=== PATIENT | male | born 1990 | race Caucasian/White ===

== ENCOUNTER 2018-06-20 18:59 | Emergency (ER) | payer MEDICAID, OTHER ==
[~2018-06-20] VITALS: Ht 177.8 cm; Wt 195.4 kg
[~2018-06-20 18:59] MED LIST: ARIP10TA8 PO; ESCI10TA PO
[2018-06-20 21:20] VITALS: BP 133/87
== END 2018-06-20 21:38 | disposition home or self-care (01) ==
LOC: EMS 18:59
DX: M54.5 Low back pain (principal); G47.62 Sleep related leg cramps; F31.9 Bipolar disorder, unspecified; F20.9 Schizophrenia, unspecified; G89.29 Other chronic pain; E66.9 Obesity, unspecified; Z68.44 Body mass index [BMI] 60.0-69.9, adult; Z59.0 Homelessness

== ENCOUNTER 2018-09-13 23:44 | Emergency (ER) | payer OTHER ==
[~2018-09-13] VITALS: Ht 175.3 cm; Wt 200.0 kg
[2018-09-14] MEDS ORDERED: AMOX TR/POT CLAV 875 MG/125 MG TABLET PO ONE (03:00)
[2018-09-14] MEDS ORDERED: LORazepam 1 MG TABLET PO ONE (03:00)
[2018-09-14 03:30] VITALS: BP 146/92
== END 2018-09-14 04:37 | disposition home or self-care (01) ==
LOC: EMS 23:46
DX: F41.9 Anxiety disorder, unspecified (principal); H66.93 Otitis media, unspecified, bilateral; F31.9 Bipolar disorder, unspecified; F20.9 Schizophrenia, unspecified

== ENCOUNTER 2018-09-16 03:32 | Emergency (ER) | payer OTHER ==
[~2018-09-16] VITALS: Ht 177.8 cm; Wt 204.6 kg
[2018-09-16 05:49] LABS: ANION GAP 7 mmol/L (8-16); CALCIUM, TOTAL 9.3 mg/dL (8.8-10.5); CARBON DIOXIDE 31 mmol/L (22-29); CHLORIDE 102 mmol/L (98-107); CREATININE 1.15 mg/dL (0.60-1.30); GLOMERULAR FILTR. RATE CALC > 60 mL/min (>60); GLUCOSE,RANDOM 100 mg/dL (70-110); POTASSIUM 4.5 mmol/L (3.5-5.1); SODIUM SERUM 140 mmol/L (136-145); UREA NITROGEN, BLOOD 14 mg/dL (7-18)
[2018-09-16 05:55] LABS: ALANINE AMINOTRANSFERASE 54 U/L (12-78); ALBUMIN 3.2 g/dL (3.4-5.0); ALKALINE PHOSPHATASE 93 U/L (46-116); ASPARTATE AMINOTRANSFERASE 34 U/L (15-37); BILIRUBIN,TOTAL 0.3 mg/dL (0.1-1.0); TOTAL PROTEIN, SERUM 7.9 g/dL (6.4-8.2)
[2018-09-16 05:56] LABS: BASOPHILS % (AUTO) 0.5 % (0.0-2.0); EOSINOPHILS % (AUTO) 0.7 % (1.0-6.0); HEMATOCRIT 51.7 % (41-53); HEMOGLOBIN 16.7 g/dL (13.5-17.5); LYMPHOCYTES # (AUTO) 2.6 K/uL (1.0-4.8); LYMPHOCYTES % (AUTO) 20.3 % (22.0-44.0); MEAN CORPUSCULAR HEMOGLOBIN 30.4 pg (26.0-34.0); MEAN CORPUSCULAR HGB CONC 32.3 G/dL (31.0-37.0); MEAN CORPUSCULAR VOLUME 94 fL (80-100); MONOCYTES # (AUTO) 1.2 K/uL (0.1-1.0); MONOCYTES % (AUTO) 9.4 % (2.0-9.0); NEUTROPHILS # (AUTO) 8.9 K/uL (1.8-7.7); NEUTROPHILS % (AUTO) 69.1 % (40.0-70.0); RED BLOOD CELL COUNT(AUTO) 5.51 MIL/uL (4.50-5.90); RED CELL DISTRIBUTION WIDTH 15.9 % (11.5-14.5)
[2018-09-16 06:10] LABS: PLATELET COUNT (AUTO) 197 K/uL (150-450)
[2018-09-16 06:11] LABS: PLATELET MORPHOLOGY COMMENT LARGE PLTS PRESENT
[2018-09-16] MEDS ORDERED: IPRATROPIUM BROMIDE 0.5 MG/2.5 ML NEB SOLUTION NEB ONE (06:15)
[2018-09-16] MEDS ORDERED: ALBUTEROL SULFATE 5 MG/ML 20 ML NEB SOLN [BULK] NEB ONE (06:15)
[2018-09-16] MEDS ORDERED: 0.9% SODIUM CHLORIDE 5 ML NEB SOLUTION NEB ONE (06:27)
[2018-09-16 06:50] LABS: AMPHET/METH SCREEN,URINE NEGATIVE (NEGATIVE); BARBITURATE SCREEN, URINE NEGATIVE (NEGATIVE); BENZODIAZEPINES SCREEN,URINE NEGATIVE (NEGATIVE); CANNABINOID SCREEN,URINE NEGATIVE (NEGATIVE); COCAINE SCREEN,URINE NEGATIVE (NEGATIVE); METHADONE SCREEN, URINE NEGATIVE (NEGATIVE); OPIATE SCREEN,URINE NEGATIVE (NEGATIVE); PHENCYCLIDINE SCREEN,URINE NEGATIVE (NEGATIVE)
[2018-09-16 06:52] VITALS: BP 142/65
== END 2018-09-16 07:08 | disposition home or self-care (01) ==
LOC: EMS 03:32
DX: F20.9 Schizophrenia, unspecified (principal); F31.9 Bipolar disorder, unspecified; F41.9 Anxiety disorder, unspecified; Z76.0 Encounter for issue of repeat prescription; Z79.899 Other long term (current) drug therapy
CPT/HCPCS: 36415; 80053; 80307; 85025; 94060; 94644; 99285; G0480

== ENCOUNTER 2019-02-02 03:20 | Emergency (ER) | payer MEDICAID, OTHER ==
[~2019-02-02] VITALS: Ht 177.8 cm; Wt 209.8 kg
[~2019-02-02 03:20] MED LIST changes: -ARIP10TA8 PO; -ESCI10TA PO; +ESCI10TA54 PO; +ZIPR40CA2 PO
[2019-02-02] MEDS ORDERED: ONDANSETRON HCL 4 MG/2 ML VIAL IVP ONE (07:00)
[2019-02-02] MEDS ORDERED: DIPHENOXYLATE/ATROP 2.5-0.025 MG TABLET PO ONE (07:00)
[2019-02-02] MEDS ORDERED: SODIUM CHLORIDE 0.9% 1,000 ML IV ONE (07:00)
[2019-02-02] MEDS ORDERED: ACETAMINOPHEN 500 MG TABLET PO ONE (07:00)
[2019-02-02 07:34] LABS: BASOPHILS % (AUTO) 0.7 % (0.0-2.0); EOSINOPHILS % (AUTO) 0.7 % (1.0-6.0); HEMOGLOBIN 17.8 g/dL (13.5-17.5); LYMPHOCYTES # (AUTO) 1.9 K/uL (1.0-4.8); MEAN CORPUSCULAR HEMOGLOBIN 30.5 pg (26.0-34.0); MEAN CORPUSCULAR VOLUME 95 fL (80-100); MONOCYTES # (AUTO) 0.9 K/uL (0.1-1.0); MONOCYTES % (AUTO) 8.3 % (2.0-9.0); NEUTROPHILS # (AUTO) 8.1 K/uL (1.8-7.7); NEUTROPHILS % (AUTO) 73.3 % (40.0-70.0); PLATELET COUNT (AUTO) 201 K/uL (150-450); RED BLOOD CELL COUNT(AUTO) 5.82 MIL/uL (4.50-5.90); RED CELL DISTRIBUTION WIDTH 15.9 % (11.5-14.5)
[2019-02-02 07:35] LABS: HEMATOCRIT 55.5 % (41-53)
[2019-02-02 07:42] LABS: ANION GAP 7 mmol/L (8-16); CALCIUM, TOTAL 9.5 mg/dL (8.8-10.5); CARBON DIOXIDE 30 mmol/L (22-29); CHLORIDE 103 mmol/L (98-107); GLOMERULAR FILTR. RATE CALC > 60 mL/min (>60); GLUCOSE,RANDOM 106 mg/dL (70-110); POTASSIUM 4.1 mmol/L (3.5-5.1); SODIUM SERUM 140 mmol/L (136-145); UREA NITROGEN, BLOOD 19 mg/dL (7-18)
[2019-02-02 07:48] LABS: ALANINE AMINOTRANSFERASE 44 U/L (12-78); ALBUMIN 2.9 g/dL (3.4-5.0); ALKALINE PHOSPHATASE 73 U/L (46-116); ASPARTATE AMINOTRANSFERASE 21 U/L (15-37); BILIRUBIN,TOTAL 0.3 mg/dL (0.1-1.0); LIPASE 130 U/L (73-393); TOTAL PROTEIN, SERUM 7.6 g/dL (6.4-8.2)
[2019-02-02 10:12] VITALS: BP 136/70
== END 2019-02-02 10:45 | disposition home or self-care (01) ==
LOC: EMS 03:22
DX: K52.9 Noninfective gastroenteritis and colitis, unspecified (principal); F25.9 Schizoaffective disorder, unspecified; F31.9 Bipolar disorder, unspecified
CPT/HCPCS: 36415; 80053; 83690; 85025; 96361; 96374; 99283; J2405; J7030

== ENCOUNTER 2019-02-07 23:24 | Emergency (ER) | payer OTHER ==
[~2019-02-07] VITALS: Ht 177.8 cm; Wt 204.6 kg
[2019-02-08] MEDS ORDERED: BACLOFEN 10 MG TABLET PO ONE (04:30)
[2019-02-08] MEDS ORDERED: ZIPRASIDONE HCL 40 MG CAPSULE PO ONE (04:30)
[2019-02-08] MEDS ORDERED: KETOROLAC TROMETHAMINE 60 MG/2 ML VIAL IM ONE (04:30)
[2019-02-08 06:03] VITALS: BP 148/90
== END 2019-02-08 06:04 | disposition home or self-care (01) ==
LOC: EMS 23:25
DX: F20.9 Schizophrenia, unspecified (principal); G89.29 Other chronic pain; M54.9 Dorsalgia, unspecified; E66.01 Morbid (severe) obesity due to excess calories; F31.9 Bipolar disorder, unspecified; Z79.899 Other long term (current) drug therapy; Z68.44 Body mass index [BMI] 60.0-69.9, adult
CPT/HCPCS: 96372; 99284; J1885

== ENCOUNTER 2019-02-21 00:31 | Emergency (ER) | payer OTHER ==
[~2019-02-21] VITALS: Ht 177.8 cm; Wt 204.6 kg
[2019-02-21 01:51] VITALS: BP 155/121
[2019-02-21 02:37] LABS: BASOPHILS % (AUTO) 0.8 % (0.0-2.0); EOSINOPHILS % (AUTO) 1.1 % (1.0-6.0); HEMATOCRIT 54.7 % (41-53); HEMOGLOBIN 17.5 g/dL (13.5-17.5); LYMPHOCYTES # (AUTO) 2.6 K/uL (1.0-4.8); LYMPHOCYTES % (AUTO) 23.8 % (22.0-44.0); MEAN CORPUSCULAR HEMOGLOBIN 30.6 pg (26.0-34.0); MEAN CORPUSCULAR VOLUME 96 fL (80-100); MONOCYTES % (AUTO) 9.3 % (2.0-9.0); PLATELET COUNT (AUTO) 218 K/uL (150-450); RED BLOOD CELL COUNT(AUTO) 5.71 MIL/uL (4.50-5.90); RED CELL DISTRIBUTION WIDTH 15.8 % (11.5-14.5)
[2019-02-21 02:45] LABS: ANION GAP 5 mmol/L (8-16); CALCIUM, TOTAL 9.6 mg/dL (8.8-10.5); CARBON DIOXIDE 33 mmol/L (22-29); CHLORIDE 104 mmol/L (98-107); CREATININE 0.98 mg/dL (0.60-1.30); GLOMERULAR FILTR. RATE CALC > 60 mL/min (>60); GLUCOSE,RANDOM 108 mg/dL (70-110); POTASSIUM 3.9 mmol/L (3.5-5.1); SODIUM SERUM 142 mmol/L (136-145); UREA NITROGEN, BLOOD 14 mg/dL (7-18)
[2019-02-21 02:51] LABS: ALANINE AMINOTRANSFERASE 55 U/L (12-78); ALBUMIN 3.1 g/dL (3.4-5.0); ALKALINE PHOSPHATASE 88 U/L (46-116); ASPARTATE AMINOTRANSFERASE 33 U/L (15-37); BILIRUBIN,TOTAL 0.2 mg/dL (0.1-1.0); TOTAL PROTEIN, SERUM 7.3 g/dL (6.4-8.2)
[2019-02-21] MEDS ORDERED: ARIPiprazole 10 MG TABLET PO ONE (03:00)
[2019-02-21] MEDS ORDERED: IBUPROFEN 600 MG TABLET PO ONE (03:00)
[2019-02-21 03:47] LABS: APPEARANCE,URINE CLEAR (CLEAR); BILIRUBIN,URINE NEGATIVE (NEGATIVE); GLUCOSE, URINE (UA) NEGATIVE (NEGATIVE); KETONES,URINE NEGATIVE (NEGATIVE); LEUKOCYTE ESTERASE ,URINE NEGATIVE (NEGATIVE); NITRATE,URINE NEGATIVE (NEGATIVE); OCCULT BLOOD,URINE NEGATIVE (NEGATIVE); PROTEIN,URINE SEE CONFIRM (NEGATIVE); UROBILINOGEN,URINE 0.2 mg/dL (<=1.0)
[2019-02-21 03:48] LABS: SULFOSALICYLIC ACID,URINE 1+ (Negative)
[2019-02-21 03:50] LABS: AMPHET/METH SCREEN,URINE NEGATIVE (NEGATIVE); BARBITURATE SCREEN, URINE NEGATIVE (NEGATIVE); BENZODIAZEPINES SCREEN,URINE NEGATIVE (NEGATIVE); CANNABINOID SCREEN,URINE NEGATIVE (NEGATIVE); COCAINE SCREEN,URINE NEGATIVE (NEGATIVE); METHADONE SCREEN, URINE NEGATIVE (NEGATIVE); OPIATE SCREEN,URINE NEGATIVE (NEGATIVE); PHENCYCLIDINE SCREEN,URINE NEGATIVE (NEGATIVE)
[2019-02-21 03:52] LABS: BACTERIA,URINE Rare /HPF (None Seen); RBC,URINE 0-2 /HPF (0-2); WBC,URINE 0-2 /HPF (0-5)
== END 2019-02-21 06:05 | disposition home or self-care (01) ==
LOC: EMS 00:31
DX: N48.1 Balanitis (principal); E66.01 Morbid (severe) obesity due to excess calories; L53.9 Erythematous condition, unspecified; R20.8 Other disturbances of skin sensation; F31.9 Bipolar disorder, unspecified; F20.9 Schizophrenia, unspecified; Z68.44 Body mass index [BMI] 60.0-69.9, adult
CPT/HCPCS: 36415; 80053; 80307; 81001; 85025; 87491; 87591; 99283; G0480

== ENCOUNTER 2019-02-22 03:39 | Inpatient (IN) | payer MEDICAID, OTHER ==
[~2019-02-22] VITALS: Ht 177.8 cm; Wt 205.0 kg
[2019-02-22 04:31] LABS: BASOPHILS % (AUTO) 0.9 % (0.0-2.0); EOSINOPHILS % (AUTO) 1.6 % (1.0-6.0); HEMATOCRIT 54.1 % (41-53); HEMOGLOBIN 17.1 g/dL (13.5-17.5); LYMPHOCYTES % (AUTO) 18.5 % (22.0-44.0); MEAN CORPUSCULAR HEMOGLOBIN 30.4 pg (26.0-34.0); MEAN CORPUSCULAR HGB CONC 31.5 G/dL (31.0-37.0); MEAN CORPUSCULAR VOLUME 97 fL (80-100); MONOCYTES # (AUTO) 0.9 K/uL (0.1-1.0); MONOCYTES % (AUTO) 8.5 % (2.0-9.0); NEUTROPHILS # (AUTO) 7.8 K/uL (1.8-7.7); NEUTROPHILS % (AUTO) 70.5 % (40.0-70.0); PLATELET COUNT (AUTO) 207 K/uL (150-450); RED BLOOD CELL COUNT(AUTO) 5.61 MIL/uL (4.50-5.90); RED CELL DISTRIBUTION WIDTH 15.6 % (11.5-14.5)
[2019-02-22 04:38] LABS: ANION GAP 4 mmol/L (8-16); CALCIUM, TOTAL 9.5 mg/dL (8.8-10.5); CARBON DIOXIDE 34 mmol/L (22-29); CHLORIDE 103 mmol/L (98-107); CREATININE 1.33 mg/dL (0.60-1.30); GLOMERULAR FILTR. RATE CALC > 60 mL/min (>60); GLUCOSE,RANDOM 101 mg/dL (70-110); POTASSIUM 4.4 mmol/L (3.5-5.1); SODIUM SERUM 141 mmol/L (136-145); UREA NITROGEN, BLOOD 15 mg/dL (7-18)
[2019-02-22 04:44] LABS: ALANINE AMINOTRANSFERASE 65 U/L (12-78); ALBUMIN 3.2 g/dL (3.4-5.0); ALKALINE PHOSPHATASE 80 U/L (46-116); ASPARTATE AMINOTRANSFERASE 37 U/L (15-37); BILIRUBIN,TOTAL 0.4 mg/dL (0.1-1.0); TOTAL PROTEIN, SERUM 7.6 g/dL (6.4-8.2)
[2019-02-22] MEDS ORDERED: CloNIDine HCL 0.1 MG TABLET PO ONE (04:45)
[2019-02-22] MEDS ORDERED: LORazepam 2 MG TABLET PO PRN (05:45)
[2019-02-22] MEDS ORDERED: ZOLPIDEM TARTRATE 10 MG TABLET PO PRN (05:45)
[2019-02-22] MEDS ORDERED: HALOPERIDOL 5 MG TABLET PO PRN (05:45)
[2019-02-22 06:38] LABS: AMPHET/METH SCREEN,URINE NEGATIVE (NEGATIVE); BARBITURATE SCREEN, URINE NEGATIVE (NEGATIVE); BENZODIAZEPINES SCREEN,URINE NEGATIVE (NEGATIVE); CANNABINOID SCREEN,URINE NEGATIVE (NEGATIVE); COCAINE SCREEN,URINE NEGATIVE (NEGATIVE); METHADONE SCREEN, URINE NEGATIVE (NEGATIVE); OPIATE SCREEN,URINE NEGATIVE (NEGATIVE)
[2019-02-22 06:41] LABS: PHENCYCLIDINE SCREEN,URINE NEGATIVE (NEGATIVE)
[2019-02-22] MEDS ORDERED: DOCUSATE SODIUM 100 MG CAPSULE PO PRN (10:45)
[2019-02-22] MEDS ORDERED: MAG HYDROX/AL HYDROX/SIMETH ES 30 ML SUSPENSION UDCUP PO PRN (10:45)
[2019-02-22] MEDS ORDERED: CloNIDine HCL 0.1 MG TABLET PO PRN (10:45)
[2019-02-22] MEDS ORDERED: ONDANSETRON HCL 4 MG TABLET PO PRN (10:45)
[2019-02-22] MEDS ORDERED: LOPERAMIDE HCL 2 MG CAPSULE PO PRN (10:45)
[2019-02-22] MEDS ORDERED: ALBUTEROL SULFATE HFA 90 MCG/PUFF 8 GM INHALER IH PRN (10:45)
[2019-02-22] MEDS ORDERED: MAGNESIUM HYDROXIDE SUSPENSION 30 ML UDCUP PO PRN (10:45)
[2019-02-22] MEDS ORDERED: BACITRACIN 28.4 GM OINTMENT TP PRN (10:45)
[2019-02-22] MEDS ORDERED: ACETAMINOPHEN 325 MG TABLET PO PRN (10:45)
[2019-02-22] MEDS ORDERED: OMEPRAZOLE 20 MG CAPSULE PO PRN (10:45)
[2019-02-22] MEDS ORDERED: PETROLATUM,WHITE 28 GM JELLY TP PRN (10:45)
[2019-02-22] MEDS ORDERED: BENZOCAINE/MENTHOL LOZENGE MM PRN (10:45)
[2019-02-22] MEDS: IBUPROFEN 600 MG TABLET PO PRN (18:33)
[2019-02-22 20:58] VITALS: BP 137/96
[2019-02-23 01:35] VITALS: BP 137/98
[2019-02-23 08:55] VITALS: BP 124/87
[2019-02-23] MEDS: IBUPROFEN 600 MG TABLET PO PRN (11:09)
[2019-02-23 17:06] VITALS: BP 148/92
[2019-02-24] MEDS: ARIPiprazole 15 MG TABLET PO SCH (10:00)
[2019-02-24] MEDS: ESCITALOPRAM OXALATE 10 MG TABLET PO SCH (10:00)
[2019-02-24 13:38] VITALS: BP 129/77
[2019-02-24 16:30] VITALS: BP 149/97
[2019-02-25 04:53] VITALS: BP 140/109
[2019-02-25] MEDS: ESCITALOPRAM OXALATE 10 MG TABLET PO SCH (09:47)
[2019-02-25] MEDS: ARIPiprazole 15 MG TABLET PO SCH (10:00)
[2019-02-25 17:54] VITALS: BP 138/98
[2019-02-26 01:38] VITALS: BP 146/102
[2019-02-26] MEDS: IBUPROFEN 600 MG TABLET PO PRN (02:01)
[2019-02-26 08:49] VITALS: BP 153/98
[2019-02-26] MEDS: ARIPiprazole 15 MG TABLET PO SCH (09:00)
[2019-02-26] MEDS: METOPROLOL TARTRATE 25 MG TABLET PO SCH ×2 (09:00→17:05)
[2019-02-26] MEDS: ESCITALOPRAM OXALATE 10 MG TABLET PO SCH (09:00)
[2019-02-26 22:49] VITALS: BP 148/95
[2019-02-27 08:47] VITALS: BP 161/88
[2019-02-27] MEDS: METOPROLOL TARTRATE 25 MG TABLET PO SCH ×2 (09:15→16:13)
[2019-02-27] MEDS: ESCITALOPRAM OXALATE 10 MG TABLET PO SCH (09:15)
[2019-02-27] MEDS: ARIPiprazole 15 MG TABLET PO SCH (09:15)
[2019-02-27 17:00] VITALS: BP 149/91
[2019-02-28 04:39] VITALS: BP 146/98
[2019-02-28] MEDS: METOPROLOL TARTRATE 25 MG TABLET PO SCH ×2 (08:57→16:17)
[2019-02-28] MEDS: ESCITALOPRAM OXALATE 10 MG TABLET PO SCH (08:57)
[2019-02-28] MEDS: RisperiDONE 2 MG TABLET PO SCH ×2 (08:57→16:17)
[2019-02-28 09:00] VITALS: BP 166/101
[2019-02-28] MEDS: IBUPROFEN 600 MG TABLET PO PRN (16:40)
[2019-02-28 16:41] VITALS: BP 122/67
[2019-03-01] MEDS: IBUPROFEN 600 MG TABLET PO PRN (04:22)
[2019-03-01] MEDS: ESCITALOPRAM OXALATE 10 MG TABLET PO SCH (09:00)
[2019-03-01] MEDS: RisperiDONE 2 MG TABLET PO SCH ×2 (09:00→16:40)
[2019-03-01] MEDS: METOPROLOL TARTRATE 25 MG TABLET PO SCH ×2 (09:00→16:40)
[2019-03-01 12:45] VITALS: BP 144/97
[2019-03-01 16:58] VITALS: BP 138/90
[2019-03-02 01:30] VITALS: BP 114/93
[2019-03-02 08:00] VITALS: BP 155/99
[2019-03-02] MEDS: ESCITALOPRAM OXALATE 10 MG TABLET PO SCH (09:00)
[2019-03-02] MEDS: METOPROLOL TARTRATE 25 MG TABLET PO SCH (09:00)
[2019-03-02] MEDS: RisperiDONE 2 MG TABLET PO SCH (10:24)
[2019-03-02] MEDS ORDERED: METO25 PO (13:53)
[2019-03-02] MEDS ORDERED: ESCI10TA PO (13:53)
[2019-03-02] MEDS ORDERED: RISP2 PO (13:53)
== END 2019-03-02 16:15 | disposition home or self-care (01) | DRG 750 ==
LOC: EMS 03:41 → B3A 06:30 → 3EI 21:29
PROVIDERS: ADMIT Psychiatry & Neurology Psychiatry; ATTEND Psychiatry & Neurology Psychiatry
DX: F25.0 Schizoaffective disorder, bipolar type (principal); R45.851 Suicidal ideations; E66.01 Morbid (severe) obesity due to excess calories; F43.10 Post-traumatic stress disorder, unspecified; G47.00 Insomnia, unspecified; G47.33 Obstructive sleep apnea (adult) (pediatric); K59.00 Constipation, unspecified; F41.9 Anxiety disorder, unspecified; M54.9 Dorsalgia, unspecified; Z68.44 Body mass index [BMI] 60.0-69.9, adult; Z91.14 Patient's other noncompliance with medication regimen; Z56.0 Unemployment, unspecified; Z79.899 Other long term (current) drug therapy
CPT/HCPCS: G0480

== ENCOUNTER 2019-03-07 04:03 | Inpatient (IN) | payer MEDICAID, OTHER ==
[~2019-03-07] VITALS: Ht 175.3 cm; Wt 206.5 kg
[~2019-03-07 04:03] MED LIST changes: +ESCI10TA PO; -ESCI10TA54 PO; +METO25 PO; +RISP2 PO; -ZIPR40CA2 PO
[2019-03-07 05:07] LABS: BASOPHILS % (AUTO) 0.7 % (0.0-2.0); EOSINOPHILS % (AUTO) 0.4 % (1.0-6.0); HEMATOCRIT 50.8 % (41-53); HEMOGLOBIN 16.1 g/dL (13.5-17.5); LYMPHOCYTES # (AUTO) 1.7 K/uL (1.0-4.8); LYMPHOCYTES % (AUTO) 13.8 % (22.0-44.0); MEAN CORPUSCULAR HEMOGLOBIN 30.4 pg (26.0-34.0); MEAN CORPUSCULAR HGB CONC 31.6 G/dL (31.0-37.0); MEAN CORPUSCULAR VOLUME 96 fL (80-100); MONOCYTES # (AUTO) 1.1 K/uL (0.1-1.0); MONOCYTES % (AUTO) 9.2 % (2.0-9.0); NEUTROPHILS # (AUTO) 9.3 K/uL (1.8-7.7); NEUTROPHILS % (AUTO) 75.9 % (40.0-70.0); PLATELET COUNT (AUTO) 210 K/uL (150-450); RED BLOOD CELL COUNT(AUTO) 5.29 MIL/uL (4.50-5.90); RED CELL DISTRIBUTION WIDTH 15.8 % (11.5-14.5)
[2019-03-07 05:13] LABS: ANION GAP 3 mmol/L (8-16); CALCIUM, TOTAL 9.2 mg/dL (8.8-10.5); CARBON DIOXIDE 34 mmol/L (22-29); CHLORIDE 102 mmol/L (98-107); CREATININE 1.05 mg/dL (0.60-1.30); GLOMERULAR FILTR. RATE CALC > 60 mL/min (>60); GLUCOSE,RANDOM 86 mg/dL (70-110); POTASSIUM 3.9 mmol/L (3.5-5.1); SODIUM SERUM 139 mmol/L (136-145); UREA NITROGEN, BLOOD 13 mg/dL (7-18)
[2019-03-07 05:17] LABS: AMPHET/METH SCREEN,URINE NEGATIVE (NEGATIVE); BARBITURATE SCREEN, URINE NEGATIVE (NEGATIVE); BENZODIAZEPINES SCREEN,URINE NEGATIVE (NEGATIVE); CANNABINOID SCREEN,URINE NEGATIVE (NEGATIVE); COCAINE SCREEN,URINE NEGATIVE (NEGATIVE); METHADONE SCREEN, URINE NEGATIVE (NEGATIVE); OPIATE SCREEN,URINE NEGATIVE (NEGATIVE)
[2019-03-07 05:18] LABS: PHENCYCLIDINE SCREEN,URINE NEGATIVE (NEGATIVE)
[2019-03-07 05:18] LABS: ALANINE AMINOTRANSFERASE 43 U/L (12-78); ALBUMIN 3.1 g/dL (3.4-5.0); ALKALINE PHOSPHATASE 66 U/L (46-116); ASPARTATE AMINOTRANSFERASE 28 U/L (15-37); BILIRUBIN,TOTAL 0.3 mg/dL (0.1-1.0); TOTAL PROTEIN, SERUM 7.6 g/dL (6.4-8.2)
[2019-03-07] MEDS ORDERED: ACETAMINOPHEN 325 MG TABLET PO PRN (09:15)
[2019-03-07] MEDS ORDERED: ONDANSETRON HCL 4 MG/2 ML VIAL IVP PRN (09:15)
[2019-03-07] MEDS ORDERED: RisperiDONE 1 MG TABLET PO ONE (09:45)
[2019-03-07] MEDS ORDERED: LORazepam 2 MG TABLET PO PRN (10:00)
[2019-03-07 13:16] VITALS: BP 124/79
[2019-03-07] MEDS: RisperiDONE 2 MG TABLET PO SCH (16:23)
[2019-03-07 17:00] VITALS: BP 130/87
[2019-03-08 04:02] VITALS: BP 144/89
[2019-03-08] MEDS: ARIPiprazole 15 MG TABLET PO SCH (08:27)
[2019-03-08 09:49] VITALS: BP 135/76
[2019-03-08] MEDS ORDERED: CloNIDine HCL 0.1 MG TABLET PO PRN (10:15)
[2019-03-08] MEDS: RisperiDONE 2 MG TABLET PO SCH ×2 (11:45→16:30)
[2019-03-08] MEDS: METOPROLOL TARTRATE 25 MG TABLET PO SCH (16:30)
[2019-03-08 16:31] VITALS: BP 160/69
[2019-03-08] MEDS ORDERED: BENZOCAINE/MENTHOL LOZENGE MM PRN (22:15)
[2019-03-08] MEDS ORDERED: OMEPRAZOLE 20 MG CAPSULE PO PRN (22:15)
[2019-03-08] MEDS ORDERED: MAG HYDROX/AL HYDROX/SIMETH ES 30 ML SUSPENSION UDCUP PO PRN (22:15)
[2019-03-08] MEDS ORDERED: LOPERAMIDE HCL 2 MG CAPSULE PO PRN (22:15)
[2019-03-08] MEDS ORDERED: PETROLATUM,WHITE 28 GM JELLY TP PRN (22:15)
[2019-03-08] MEDS ORDERED: ACETAMINOPHEN 325 MG TABLET PO PRN (22:15)
[2019-03-08] MEDS ORDERED: DOCUSATE SODIUM 100 MG CAPSULE PO PRN (22:15)
[2019-03-08] MEDS ORDERED: MAGNESIUM HYDROXIDE SUSPENSION 30 ML UDCUP PO PRN (22:15)
[2019-03-08] MEDS ORDERED: BACITRACIN 28.4 GM OINTMENT TP PRN (22:15)
[2019-03-08] MEDS ORDERED: ALBUTEROL SULFATE HFA 90 MCG/PUFF 8 GM INHALER IH PRN (22:15)
[2019-03-08] MEDS ORDERED: ONDANSETRON HCL 4 MG TABLET PO PRN (22:15)
[2019-03-08] MEDS: HALOPERIDOL 5 MG TABLET PO PRN (23:51)
[2019-03-09] VITALS: BP 140/84
[2019-03-09 08:00] VITALS: BP 125/89
[2019-03-09] MEDS: ARIPiprazole 15 MG TABLET PO SCH (10:26)
[2019-03-09] MEDS: RisperiDONE 2 MG TABLET PO SCH ×2 (10:26→18:42)
[2019-03-09] MEDS: METOPROLOL TARTRATE 25 MG TABLET PO SCH ×2 (10:26→18:42)
[2019-03-09 19:12] VITALS: BP 138/76
[2019-03-09] MEDS: IBUPROFEN 600 MG TABLET PO PRN (20:33)
[2019-03-09 20:35] VITALS: BP 132/69
[2019-03-09] MEDS: HALOPERIDOL 5 MG TABLET PO PRN (22:52)
[2019-03-10] MEDS: RisperiDONE 2 MG TABLET PO SCH ×2 (08:35→17:36)
[2019-03-10] MEDS: ARIPiprazole 15 MG TABLET PO SCH (08:35)
[2019-03-10] MEDS: METOPROLOL TARTRATE 25 MG TABLET PO SCH ×2 (08:54→17:36)
[2019-03-10 11:16] VITALS: BP 132/98
[2019-03-10 16:00] VITALS: BP 104/75
[2019-03-11 04:10] VITALS: BP 139/85
[2019-03-11 08:30] VITALS: BP 120/67
[2019-03-11] MEDS: ARIPiprazole 15 MG TABLET PO SCH (09:02)
[2019-03-11] MEDS: RisperiDONE 2 MG TABLET PO SCH ×2 (09:03→16:44)
[2019-03-11] MEDS: METOPROLOL TARTRATE 25 MG TABLET PO SCH ×2 (09:04→16:44)
[2019-03-11 21:20] VITALS: BP 151/91
[2019-03-12 00:15] VITALS: BP 162/97
[2019-03-12] MEDS: ZOLPIDEM TARTRATE 10 MG TABLET PO PRN (00:16)
[2019-03-12] MEDS: ARIPiprazole 15 MG TABLET PO SCH (08:57)
[2019-03-12] MEDS: RisperiDONE 2 MG TABLET PO SCH ×2 (08:57→16:19)
[2019-03-12] MEDS: METOPROLOL TARTRATE 50 MG TABLET PO SCH ×2 (08:58→16:19)
[2019-03-12 10:16] VITALS: BP 139/97
[2019-03-12 16:20] VITALS: BP 137/92
[2019-03-13 03:27] VITALS: BP 151/88
[2019-03-13] MEDS: RisperiDONE 2 MG TABLET PO SCH ×2 (09:10→17:35)
[2019-03-13] MEDS: METOPROLOL TARTRATE 50 MG TABLET PO SCH ×2 (09:10→17:35)
[2019-03-13] MEDS: ARIPiprazole 15 MG TABLET PO SCH (09:10)
[2019-03-13 10:22] VITALS: BP 128/78
[2019-03-13 16:30] VITALS: BP 141/78
[2019-03-14] MEDS: IBUPROFEN 600 MG TABLET PO PRN (01:26)
[2019-03-14 01:31] VITALS: BP 119/80
[2019-03-14] MEDS: RisperiDONE 2 MG TABLET PO SCH ×2 (08:41→17:06)
[2019-03-14] MEDS: METOPROLOL TARTRATE 50 MG TABLET PO SCH ×2 (08:41→17:06)
[2019-03-14] MEDS: ARIPiprazole 15 MG TABLET PO SCH (08:41)
[2019-03-14 10:30] VITALS: BP 135/61
[2019-03-14 16:11] VITALS: BP 127/91
[2019-03-14 16:16] VITALS: BP 127/91
[2019-03-14] MEDS: ZOLPIDEM TARTRATE 10 MG TABLET PO PRN (21:41)
[2019-03-15] MEDS: RisperiDONE 2 MG TABLET PO SCH ×2 (08:29→17:17)
[2019-03-15] MEDS: ARIPiprazole 15 MG TABLET PO SCH (08:29)
[2019-03-15] MEDS: METOPROLOL TARTRATE 50 MG TABLET PO SCH ×2 (08:29→17:17)
[2019-03-15 09:32] VITALS: BP_SYST 127; BP_SYST 158; BP_DIAS 74; BP_DIAS 85
[2019-03-15 16:30] VITALS: BP 147/90
[2019-03-16 00:50] VITALS: BP 134/82
[2019-03-16] MEDS: ZOLPIDEM TARTRATE 10 MG TABLET PO PRN (00:54)
[2019-03-16] MEDS: ARIPiprazole 15 MG TABLET PO SCH (08:09)
[2019-03-16] MEDS: RisperiDONE 2 MG TABLET PO SCH (08:09)
[2019-03-16] MEDS: METOPROLOL TARTRATE 50 MG TABLET PO SCH (08:16)
[2019-03-16] MEDS ORDERED: METO50 PO (10:21)
[2019-03-16] MEDS ORDERED: ARIP15TA2 PO (10:25)
== END 2019-03-16 13:34 | disposition home or self-care (01) | DRG 750 ==
LOC: EMS 04:23 → 3EI 11:41
PROVIDERS: ADMIT Psychiatry & Neurology Psychiatry; ATTEND Psychiatry & Neurology Psychiatry
DX: F20.0 Paranoid schizophrenia (principal); E66.01 Morbid (severe) obesity due to excess calories; F31.9 Bipolar disorder, unspecified; F43.10 Post-traumatic stress disorder, unspecified; G47.00 Insomnia, unspecified; G47.33 Obstructive sleep apnea (adult) (pediatric); G89.29 Other chronic pain; I10 Essential (primary) hypertension; K21.9 Gastro-esophageal reflux disease without esophagitis; K59.00 Constipation, unspecified; R45.850 Homicidal ideations; Z59.0 Homelessness; M54.9 Dorsalgia, unspecified; Z68.44 Body mass index [BMI] 60.0-69.9, adult
CPT/HCPCS: G0480

== ENCOUNTER 2019-05-09 02:09 | Emergency (ER) | payer MEDICAID, OTHER ==
[~2019-05-09] VITALS: Ht 177.8 cm; Wt 204.6 kg
[~2019-05-09 02:09] MED LIST changes: +ARIP15TA2 PO; -ESCI10TA PO; -METO25 PO; +METO50 PO
[2019-05-09] MEDS ORDERED: QUET50TA PO (02:24)
[2019-05-09 03:32] LABS: BASOPHILS % (AUTO) 0.7 % (0.0-2.0); EOSINOPHILS % (AUTO) 1.8 % (1.0-6.0); HEMATOCRIT 50.2 % (41-53); LYMPHOCYTES # (AUTO) 1.5 K/uL (1.0-4.8); LYMPHOCYTES % (AUTO) 16.8 % (22.0-44.0); MEAN CORPUSCULAR HEMOGLOBIN 30.9 pg (26.0-34.0); MEAN CORPUSCULAR VOLUME 97 fL (80-100); MONOCYTES # (AUTO) 0.8 K/uL (0.1-1.0); MONOCYTES % (AUTO) 9.7 % (2.0-9.0); NEUTROPHILS # (AUTO) 6.2 K/uL (1.8-7.7); PLATELET COUNT (AUTO) 187 K/uL (150-450); RED BLOOD CELL COUNT(AUTO) 5.19 MIL/uL (4.50-5.90)
[2019-05-09 03:40] LABS: ANION GAP -3 mmol/L (8-16); CALCIUM, TOTAL 8.7 mg/dL (8.8-10.5); CARBON DIOXIDE 39 mmol/L (22-29); CHLORIDE 105 mmol/L (98-107); CREATININE 1.28 mg/dL (0.60-1.30); GLOMERULAR FILTR. RATE CALC > 60 mL/min (>60); GLUCOSE,RANDOM 97 mg/dL (70-110); POTASSIUM 4.5 mmol/L (3.5-5.1); SODIUM SERUM 141 mmol/L (136-145); UREA NITROGEN, BLOOD 12 mg/dL (7-18)
[2019-05-09 03:46] LABS: ALANINE AMINOTRANSFERASE 33 U/L (12-78); ALBUMIN 2.8 g/dL (3.4-5.0); ALKALINE PHOSPHATASE 78 U/L (46-116); ASPARTATE AMINOTRANSFERASE 21 U/L (15-37); BILIRUBIN,TOTAL 0.3 mg/dL (0.1-1.0); LIPASE 155 U/L (73-393)
[2019-05-09] MEDS ORDERED: MAGNESIUM CITRATE 300 ML ORAL SOLUTION PO ONE (04:15)
[2019-05-09] MEDS ORDERED: SENNA/DOCUSATE SODIUM 8.6-50 MG TABLET PO ONE (04:15)
[2019-05-09 04:58] VITALS: BP 112/61
== END 2019-05-09 05:16 | disposition home or self-care (01) ==
LOC: EMS 02:10
DX: K59.00 Constipation, unspecified (principal); E66.01 Morbid (severe) obesity due to excess calories; F31.9 Bipolar disorder, unspecified; F20.9 Schizophrenia, unspecified; Z79.899 Other long term (current) drug therapy; Z68.44 Body mass index [BMI] 60.0-69.9, adult
CPT/HCPCS: 74022

== ENCOUNTER 2019-05-11 17:13 | Inpatient (IN) | payer OTHER ==
[~2019-05-11] VITALS: Ht 177.8 cm; Wt 201.2 kg
[~2019-05-11 17:13] MED LIST changes: +QUET50TA PO
[2019-05-11 18:25] LABS: BASOPHILS % (AUTO) 0.6 % (0.0-2.0); EOSINOPHILS % (AUTO) 0.7 % (1.0-6.0); HEMATOCRIT 49.8 % (41-53); HEMOGLOBIN 15.8 g/dL (13.5-17.5); LYMPHOCYTES # (AUTO) 1.5 K/uL (1.0-4.8); LYMPHOCYTES % (AUTO) 17.2 % (22.0-44.0); MEAN CORPUSCULAR HEMOGLOBIN 30.7 pg (26.0-34.0); MEAN CORPUSCULAR HGB CONC 31.6 G/dL (31.0-37.0); MEAN CORPUSCULAR VOLUME 97 fL (80-100); MONOCYTES # (AUTO) 0.9 K/uL (0.1-1.0); MONOCYTES % (AUTO) 10.4 % (2.0-9.0); NEUTROPHILS # (AUTO) 6.4 K/uL (1.8-7.7); NEUTROPHILS % (AUTO) 71.1 % (40.0-70.0); PLATELET COUNT (AUTO) 199 K/uL (150-450); RED BLOOD CELL COUNT(AUTO) 5.14 MIL/uL (4.50-5.90); RED CELL DISTRIBUTION WIDTH 16.1 % (11.5-14.5)
[2019-05-11 18:44] LABS: ANION GAP 1 mmol/L (8-16); CALCIUM, TOTAL 8.6 mg/dL (8.8-10.5); CARBON DIOXIDE 36 mmol/L (22-29); CHLORIDE 103 mmol/L (98-107); CREATININE 1.36 mg/dL (0.60-1.30); GLOMERULAR FILTR. RATE CALC > 60 mL/min (>60); GLUCOSE,RANDOM 94 mg/dL (70-110); POTASSIUM 5.2 mmol/L (3.5-5.1); SODIUM SERUM 140 mmol/L (136-145); UREA NITROGEN, BLOOD 15 mg/dL (7-18)
[2019-05-11 18:54] LABS: D-DIMER 0.87 mg/L FEU (0.00-0.50)
[2019-05-11 18:55] LABS: SALICYLATE < 2.8 mg/dL (2.8-20.0)
[2019-05-11 19:03] LABS: ALANINE AMINOTRANSFERASE 47 U/L (12-78); ALBUMIN 2.7 g/dL (3.4-5.0); ALKALINE PHOSPHATASE 60 U/L (46-116); ASPARTATE AMINOTRANSFERASE 32 U/L (15-37); BILIRUBIN,TOTAL 0.3 mg/dL (0.1-1.0); TOTAL PROTEIN, SERUM 7.2 g/dL (6.4-8.2)
[2019-05-11 19:04] LABS: ACETAMINOPHEN < 2 mcg/mL (10-30)
[2019-05-11 19:10] LABS: PROTHROMBIN TIME 10.1 SEC (9.4-11.6)
[2019-05-11] MEDS ORDERED: FUROSEMIDE 40 MG/4 ML VIAL IVP ONE (19:45)
[2019-05-11] MEDS ORDERED: ASPIRIN 81 MG CHEWABLE TABLET PO ONE (19:45)
[2019-05-11] MEDS ORDERED: NITROGLYCERIN 2% (1 GM=INCH) PACKET TP ONE (19:45)
[2019-05-11 20:49] LABS: AMPHET/METH SCREEN,URINE NEGATIVE (NEGATIVE); BARBITURATE SCREEN, URINE NEGATIVE (NEGATIVE); BENZODIAZEPINES SCREEN,URINE NEGATIVE (NEGATIVE); CANNABINOID SCREEN,URINE NEGATIVE (NEGATIVE); COCAINE SCREEN,URINE NEGATIVE (NEGATIVE); METHADONE SCREEN, URINE NEGATIVE (NEGATIVE); OPIATE SCREEN,URINE NEGATIVE (NEGATIVE)
[2019-05-11 20:52] LABS: PHENCYCLIDINE SCREEN,URINE NEGATIVE (NEGATIVE)
[2019-05-11 21:24] LABS: ABG A-A DIFF O2 45.8 mmHg (10-20.0); ABG BASE EXCESS 4.5 mmol/L (-2.0-3.0); ABG CARBOXYHEMOGLOBIN 1.5 % (0.0-3.0); ABG HCO3 26.5 mmol/L (22.0-26.0); ABG OXYGEN CONTENT 23.3 mL/dL (15.0-23.0); ABG OXYGEN SATURATION 99.1 % (95.0-98.0); ABG OXYHEMOGLOBIN 97.6 % (94.0-100.0); ABG PCO2 64 mmHg (35-45); ABG PH 7.301 (7.350-7.450); ABG TOTAL HEMOGLOBIN 16.8 G/dL (12.0-18.0); PO2, ARTERIAL BG 165.8 mmHg (80.0-100.0); SOURCE, BLOOD GAS ARTERIAL; TEMPERATURE, FAHRENHEIT, BG 98.6 FAHREN (96.0-98.6)
[2019-05-11 21:25] LABS: O2 DEVICE,BLOOD GAS BIPAP (ROOM AIR); SITE, BLOOD GAS RT RADIAL
[2019-05-11 21:26] LABS: SPONTANEOUS VT, BG 523 ml
[2019-05-11] MEDS: ACETAMINOPHEN 325 MG TABLET PO PRN (22:32)
[2019-05-11] MEDS: RisperiDONE 2 MG TABLET PO SCH (23:22)
[2019-05-11] MEDS: QUEtiapine FUMARATE 25 MG TABLET PO SCH (23:22)
[2019-05-11 23:29] VITALS: BP 111/66
[2019-05-12] MEDS: HEPARIN SODIUM,PORCINE 5,000 UNITS/ML VIAL SQ SCH ×4 (00:27→15:54)
[2019-05-12 05:19] VITALS: BP 149/58
[2019-05-12 06:45] VITALS: BP 143/94
[2019-05-12 07:22] LABS: BASOPHILS % (AUTO) 0.5 % (0.0-2.0); EOSINOPHILS % (AUTO) 0.3 % (1.0-6.0); HEMATOCRIT 49.4 % (41-53); HEMOGLOBIN 15.5 g/dL (13.5-17.5); LYMPHOCYTES # (AUTO) 1.2 K/uL (1.0-4.8); LYMPHOCYTES % (AUTO) 11.7 % (22.0-44.0); MEAN CORPUSCULAR HEMOGLOBIN 30.9 pg (26.0-34.0); MEAN CORPUSCULAR HGB CONC 31.4 G/dL (31.0-37.0); MEAN CORPUSCULAR VOLUME 98 fL (80-100); MONOCYTES % (AUTO) 10.1 % (2.0-9.0); NEUTROPHILS # (AUTO) 7.9 K/uL (1.8-7.7); NEUTROPHILS % (AUTO) 77.4 % (40.0-70.0); PLATELET COUNT (AUTO) 212 K/uL (150-450); RED BLOOD CELL COUNT(AUTO) 5.02 MIL/uL (4.50-5.90); RED CELL DISTRIBUTION WIDTH 16.2 % (11.5-14.5)
[2019-05-12 07:42] LABS: ALANINE AMINOTRANSFERASE 45 U/L (12-78); ALKALINE PHOSPHATASE 64 U/L (46-116); ANION GAP 1 mmol/L (8-16); ASPARTATE AMINOTRANSFERASE 21 U/L (15-37); BILIRUBIN,TOTAL 0.4 mg/dL (0.1-1.0); CALCIUM, TOTAL 8.5 mg/dL (8.8-10.5); CARBON DIOXIDE 39 mmol/L (22-29); CHLORIDE 99 mmol/L (98-107); CREATININE 1.09 mg/dL (0.60-1.30); GLOMERULAR FILTR. RATE CALC > 60 mL/min (>60); GLUCOSE,RANDOM 124 mg/dL (70-110); POTASSIUM 5.6 mmol/L (3.5-5.1); SODIUM SERUM 139 mmol/L (136-145); TOTAL PROTEIN, SERUM 7.1 g/dL (6.4-8.2); UREA NITROGEN, BLOOD 12 mg/dL (7-18)
[2019-05-12 08:11] VITALS: BP 150/70
[2019-05-12] MEDS ORDERED: SODIUM POLYSTYRENE SULFONATE 15 GM/60 ML SUSPENSION BOTTLE PO ONE (09:00)
[2019-05-12] MEDS: DOCUSATE SODIUM 100 MG CAPSULE PO SCH ×3 (09:27→21:35)
[2019-05-12] MEDS: FAMOTIDINE 20 MG TABLET PO SCH (09:27)
[2019-05-12] MEDS: QUEtiapine FUMARATE 25 MG TABLET PO SCH ×3 (09:27→21:35)
[2019-05-12] MEDS: ASPIRIN 81 MG CHEWABLE TABLET PO SCH (09:27)
[2019-05-12] MEDS: RisperiDONE 2 MG TABLET PO SCH ×3 (09:27→21:35)
[2019-05-12 11:52] VITALS: BP 144/86
[2019-05-12 16:11] VITALS: BP 125/49
[2019-05-12 19:02] LABS: ABG A-A DIFF O2 92.9 mmHg (10-20.0); ABG CARBOXYHEMOGLOBIN 1.8 % (0.0-3.0); ABG HCO3 31.4 mmol/L (22.0-26.0); ABG OXYGEN CONTENT 21.6 mL/dL (15.0-23.0); ABG OXYGEN SATURATION 96.2 % (95.0-98.0); ABG OXYHEMOGLOBIN 94.5 % (94.0-100.0); ABG TOTAL HEMOGLOBIN 16.2 G/dL (12.0-18.0); PO2, ARTERIAL BG 95.5 mmHg (80.0-100.0); SOURCE, BLOOD GAS ARTERIAL; TEMPERATURE, FAHRENHEIT, BG 99.6 FAHREN (96.0-98.6)
[2019-05-12 19:04] LABS: ABG PCO2 116 mmHg (35-45); ABG PH 7.174 (7.350-7.450); O2 DEVICE,BLOOD GAS BIPAP (ROOM AIR); SITE, BLOOD GAS RT BRACHIAL
[2019-05-12 20:00] VITALS: BP 158/95
[2019-05-12 20:32] LABS: ABG A-A DIFF O2 68.2 mmHg (10-20.0); ABG BASE EXCESS 11.9 mmol/L (-2.0-3.0); ABG CARBOXYHEMOGLOBIN 1.9 % (0.0-3.0); ABG HCO3 31.5 mmol/L (22.0-26.0); ABG METHEMOGLOBIN 0.3 % (0.0-1.5); ABG OXYGEN CONTENT 21.2 mL/dL (15.0-23.0); ABG OXYGEN SATURATION 95.7 % (95.0-98.0); ABG OXYHEMOGLOBIN 93.6 % (94.0-100.0); ABG TOTAL HEMOGLOBIN 16.1 G/dL (12.0-18.0); PO2, ARTERIAL BG 80.8 mmHg (80.0-100.0); SOURCE, BLOOD GAS ARTERIAL; TEMPERATURE, FAHRENHEIT, BG 98.6 FAHREN (96.0-98.6)
[2019-05-12 20:33] LABS: ABG PCO2 87 mmHg (35-45); O2 DEVICE,BLOOD GAS BIPAP (ROOM AIR); SITE, BLOOD GAS RT BRACHIAL; SPONTANEOUS VT, BG 457 ml
[2019-05-12] MEDS ORDERED: SUGAMMADEX SODIUM 200 MG/2 ML VIAL IVP ONE (20:53)
[2019-05-12 21:19] LABS: ANION GAP 1 mmol/L (8-16); CALCIUM, TOTAL 8.6 mg/dL (8.8-10.5); CARBON DIOXIDE 37 mmol/L (22-29); CHLORIDE 100 mmol/L (98-107); CREATININE 1.03 mg/dL (0.60-1.30); GLOMERULAR FILTR. RATE CALC > 60 mL/min (>60); GLUCOSE,RANDOM 103 mg/dL (70-110); SODIUM SERUM 138 mmol/L (136-145)
[2019-05-12 21:32] LABS: UREA NITROGEN, BLOOD 13 mg/dL (7-18)
[2019-05-12 22:28] LABS: ABG METHEMOGLOBIN 0.3 % (0.0-1.5); SOURCE, BLOOD GAS ARTERIAL; TEMPERATURE, FAHRENHEIT, BG 99.8 FAHREN (96.0-98.6)
[2019-05-12 22:37] LABS: ABG A-A DIFF O2 74.3 mmHg (10-20.0); ABG BASE EXCESS 12.9 mmol/L (-2.0-3.0); ABG CARBOXYHEMOGLOBIN 1.9 % (0.0-3.0); ABG HCO3 32.1 mmol/L (22.0-26.0); ABG OXYGEN CONTENT 19.9 mL/dL (15.0-23.0); ABG OXYGEN SATURATION 91.3 % (95.0-98.0); ABG OXYHEMOGLOBIN 89.3 % (94.0-100.0); ABG TOTAL HEMOGLOBIN 15.9 G/dL (12.0-18.0); PO2, ARTERIAL BG 65.9 mmHg (80.0-100.0)
[2019-05-12 22:38] LABS: ABG PCO2 94 mmHg (35-45); ABG PH 7.252 (7.350-7.450); SITE, BLOOD GAS RT BRACHIAL
[2019-05-12 22:39] LABS: O2 DEVICE,BLOOD GAS BIPAP (ROOM AIR); SPONTANEOUS VT, BG 608 ml
[2019-05-12] MEDS ORDERED: RAPID SEQUENCE KIT [RSI] 1 EACH KIT ONE (22:42)
[2019-05-12] MEDS ORDERED: PROPOFOL 1000 MG/ISO-OSM 100 ML IV ONE (23:07)
[2019-05-12] MEDS: PROPOFOL 1000 MG/ISO-OSM 100 ML IV PRN (23:15)
[2019-05-13] VITALS (8 sets, daily range): BP systolic 109–142; BP diastolic 60–91
[2019-05-13 00:18] LABS: ABG A-A DIFF O2 267.9 mmHg (10-20.0); ABG BASE EXCESS 10.7 mmol/L (-2.0-3.0); ABG CARBOXYHEMOGLOBIN 2.4 % (0.0-3.0); ABG HCO3 31.7 mmol/L (22.0-26.0); ABG METHEMOGLOBIN 0.3 % (0.0-1.5); ABG OXYGEN CONTENT 20.9 mL/dL (15.0-23.0); ABG OXYGEN SATURATION 96.5 % (95.0-98.0); ABG OXYHEMOGLOBIN 93.9 % (94.0-100.0); ABG PCO2 66 mmHg (35-45); ABG PH 7.355 (7.350-7.450); ABG TOTAL HEMOGLOBIN 15.8 G/dL (12.0-18.0); O2 DEVICE,BLOOD GAS VENTILATOR (ROOM AIR); PEEP,BG 5 cm H2O; PO2, ARTERIAL BG 85.9 mmHg (80.0-100.0); SITE, BLOOD GAS RT BRACHIAL; SOURCE, BLOOD GAS ARTERIAL; TEMPERATURE, FAHRENHEIT, BG 99.7 FAHREN (96.0-98.6); VT, ABG 600 ml
[2019-05-13 00:19] LABS: SPONTANEOUS VT, BG 614 ml
[2019-05-13] MEDS: PROPOFOL 1000 MG/ISO-OSM 100 ML IV PRN ×8 (00:31→21:47)
[2019-05-13] MEDS: HEPARIN SODIUM,PORCINE 5,000 UNITS/ML VIAL SQ SCH ×4 (00:33→23:59)
[2019-05-13] MEDS: FAMOTIDINE 20 MG TABLET PO SCH (08:18)
[2019-05-13] MEDS: ASPIRIN 81 MG CHEWABLE TABLET PO SCH (08:18)
[2019-05-13] MEDS: QUEtiapine FUMARATE 25 MG TABLET PO SCH ×2 (09:00→21:45)
[2019-05-13] MEDS: DOCUSATE SODIUM 100 MG CAPSULE PO SCH ×2 (09:00→21:46)
[2019-05-13] MEDS: RisperiDONE 2 MG TABLET PO SCH ×2 (09:00→21:45)
[2019-05-14] VITALS (7 sets, daily range): BP systolic 116–143; BP diastolic 71–92
[2019-05-14] MEDS: PROPOFOL 1000 MG/ISO-OSM 100 ML IV PRN ×15 (01:04→22:11)
[2019-05-14 04:56] LABS: BASOPHILS % (AUTO) 0.8 % (0.0-2.0); EOSINOPHILS % (AUTO) 1.3 % (1.0-6.0); HEMATOCRIT 52.1 % (41-53); HEMOGLOBIN 16.6 g/dL (13.5-17.5); LYMPHOCYTES # (AUTO) 1.5 K/uL (1.0-4.8); LYMPHOCYTES % (AUTO) 14.3 % (22.0-44.0); MEAN CORPUSCULAR HEMOGLOBIN 30.5 pg (26.0-34.0); MEAN CORPUSCULAR HGB CONC 31.9 G/dL (31.0-37.0); MEAN CORPUSCULAR VOLUME 96 fL (80-100); MONOCYTES # (AUTO) 1.1 K/uL (0.1-1.0); NEUTROPHILS # (AUTO) 7.4 K/uL (1.8-7.7); NEUTROPHILS % (AUTO) 72.6 % (40.0-70.0); PLATELET COUNT (AUTO) 179 K/uL (150-450); RED BLOOD CELL COUNT(AUTO) 5.45 MIL/uL (4.50-5.90); RED CELL DISTRIBUTION WIDTH 16.3 % (11.5-14.5)
[2019-05-14 05:07] LABS: ALANINE AMINOTRANSFERASE 27 U/L (12-78); ALBUMIN 2.5 g/dL (3.4-5.0); ALKALINE PHOSPHATASE 52 U/L (46-116); ANION GAP 3 mmol/L (8-16); ASPARTATE AMINOTRANSFERASE 30 U/L (15-37); BILIRUBIN,TOTAL 1.1 mg/dL (0.1-1.0); CALCIUM, TOTAL 8.8 mg/dL (8.8-10.5); CARBON DIOXIDE 36 mmol/L (22-29); CHLORIDE 101 mmol/L (98-107); CREATININE 1.07 mg/dL (0.60-1.30); GLOMERULAR FILTR. RATE CALC > 60 mL/min (>60); GLUCOSE,RANDOM 95 mg/dL (70-110); PHOSPHORUS 3.2 mg/dL (2.5-4.9); SODIUM SERUM 140 mmol/L (136-145); UREA NITROGEN, BLOOD 12 mg/dL (7-18)
[2019-05-14 05:20] LABS: B-TYPE NATRIURETIC PEPTIDE 11 pg/mL (0-100)
[2019-05-14] MEDS: HEPARIN SODIUM,PORCINE 5,000 UNITS/ML VIAL SQ SCH (07:50)
[2019-05-14] MEDS: ASPIRIN 81 MG CHEWABLE TABLET PO SCH (07:52)
[2019-05-14] MEDS: DOCUSATE SODIUM 100 MG CAPSULE PO SCH ×2 (07:52→21:12)
[2019-05-14] MEDS: FAMOTIDINE 20 MG TABLET PO SCH (07:52)
[2019-05-14 08:27] LABS: ABG A-A DIFF O2 240.5 mmHg (10-20.0); ABG BASE EXCESS 11.9 mmol/L (-2.0-3.0); ABG CARBOXYHEMOGLOBIN 1.3 % (0.0-3.0); ABG HCO3 33.6 mmol/L (22.0-26.0); ABG METHEMOGLOBIN 0.3 % (0.0-1.5); ABG OXYGEN CONTENT 21.8 mL/dL (15.0-23.0); ABG OXYGEN SATURATION 91.8 % (95.0-98.0); ABG OXYHEMOGLOBIN 90.3 % (94.0-100.0); ABG PCO2 49 mmHg (35-45); ABG TOTAL HEMOGLOBIN 17.2 G/dL (12.0-18.0); PO2, ARTERIAL BG 61.3 mmHg (80.0-100.0); SOURCE, BLOOD GAS ARTERIAL; TEMPERATURE, FAHRENHEIT, BG 98.6 FAHREN (96.0-98.6)
[2019-05-14 08:29] LABS: SITE, BLOOD GAS RT RADIAL
[2019-05-14 08:30] LABS: O2 DEVICE,BLOOD GAS VENTILATOR (ROOM AIR); PEEP,BG 5 cm H2O; VT, ABG 600 ml
[2019-05-14] MEDS: QUEtiapine FUMARATE 25 MG TABLET PO SCH ×2 (09:11→21:12)
[2019-05-14] MEDS: RisperiDONE 2 MG TABLET PO SCH ×2 (09:11→21:12)
[2019-05-14] MEDS: APIXABAN 5 MG TABLET PO SCH ×2 (13:14→21:12)
[2019-05-14] MEDS: FUROSEMIDE 40 MG/4 ML VIAL IVP SCH (14:37)
[2019-05-14] MEDS: ACETAMINOPHEN 325 MG TABLET PO PRN ×2 (17:02→21:12)
[2019-05-14 21:46] LABS: APPEARANCE,URINE CLEAR (CLEAR); GLUCOSE, URINE (UA) NEGATIVE (NEGATIVE); KETONES,URINE NEGATIVE (NEGATIVE); LEUKOCYTE ESTERASE ,URINE NEGATIVE (NEGATIVE); NITRATE,URINE NEGATIVE (NEGATIVE); OCCULT BLOOD,URINE NEGATIVE (NEGATIVE); PH,URINE 7.5 (5.0-8.0); PROTEIN,URINE POS 1+ (NEGATIVE)
[2019-05-14 21:55] LABS: BILIRUBIN,URINE PRELIM. POSITIVE (NEGATIVE)
[2019-05-14 22:10] LABS: WBC,URINE 0-2 /HPF (0-5)
[2019-05-14 22:11] LABS: BACTERIA,URINE Few /HPF (None Seen)
[2019-05-14 22:12] LABS: SQUAMOUS EPITHELIAL CELL,UR None Seen /LPF (None Seen)
[2019-05-15] VITALS (8 sets, daily range): BP systolic 119–131; BP diastolic 69–90
[2019-05-15] MEDS: PROPOFOL 1000 MG/ISO-OSM 100 ML IV PRN ×16 (00:02→23:11)
[2019-05-15 04:54] LABS: BASOPHILS % (AUTO) 0.9 % (0.0-2.0); EOSINOPHILS % (AUTO) 1.6 % (1.0-6.0); HEMATOCRIT 49.9 % (41-53); HEMOGLOBIN 16.4 g/dL (13.5-17.5); LYMPHOCYTES % (AUTO) 15.3 % (22.0-44.0); MEAN CORPUSCULAR HEMOGLOBIN 31.2 pg (26.0-34.0); MEAN CORPUSCULAR HGB CONC 32.9 G/dL (31.0-37.0); MEAN CORPUSCULAR VOLUME 95 fL (80-100); MONOCYTES # (AUTO) 2.1 K/uL (0.1-1.0); MONOCYTES % (AUTO) 16.5 % (2.0-9.0); NEUTROPHILS # (AUTO) 8.5 K/uL (1.8-7.7); NEUTROPHILS % (AUTO) 65.7 % (40.0-70.0); PLATELET COUNT (AUTO) 167 K/uL (150-450); RED BLOOD CELL COUNT(AUTO) 5.26 MIL/uL (4.50-5.90); RED CELL DISTRIBUTION WIDTH 16.5 % (11.5-14.5)
[2019-05-15 05:41] LABS: ANION GAP 7 mmol/L (8-16); CALCIUM, TOTAL 8.8 mg/dL (8.8-10.5); CARBON DIOXIDE 34 mmol/L (22-29); CHLORIDE 100 mmol/L (98-107); CREATININE 1.29 mg/dL (0.60-1.30); GLOMERULAR FILTR. RATE CALC > 60 mL/min (>60); GLUCOSE,RANDOM 89 mg/dL (70-110); SODIUM SERUM 141 mmol/L (136-145); UREA NITROGEN, BLOOD 12 mg/dL (7-18)
[2019-05-15 09:01] LABS: ABG A-A DIFF O2 300.4 mmHg (10-20.0); ABG CARBOXYHEMOGLOBIN 1.2 % (0.0-3.0); ABG HCO3 32.2 mmol/L (22.0-26.0); ABG METHEMOGLOBIN 0.3 % (0.0-1.5); ABG OXYGEN CONTENT 22.1 mL/dL (15.0-23.0); ABG OXYGEN SATURATION 94.1 % (95.0-98.0); ABG OXYHEMOGLOBIN 92.7 % (94.0-100.0); ABG PCO2 48 mmHg (35-45); ABG PH 7.468 (7.350-7.450); PO2, ARTERIAL BG 74.4 mmHg (80.0-100.0); SOURCE, BLOOD GAS ARTERIAL; TEMPERATURE, FAHRENHEIT, BG 99.5 FAHREN (96.0-98.6)
[2019-05-15 09:02] LABS: O2 DEVICE,BLOOD GAS VENTILATOR (ROOM AIR); PEEP,BG 5 cm H2O; SITE, BLOOD GAS LFT BRACHIAL; VT, ABG 600 ml
[2019-05-15] MEDS: FUROSEMIDE 40 MG/4 ML VIAL IVP SCH (09:33)
[2019-05-15] MEDS: RisperiDONE 2 MG TABLET PO SCH ×2 (09:34→20:21)
[2019-05-15] MEDS: FAMOTIDINE 20 MG TABLET PO SCH (09:34)
[2019-05-15] MEDS: DOCUSATE SODIUM 100 MG CAPSULE PO SCH ×2 (09:34→20:21)
[2019-05-15] MEDS: APIXABAN 5 MG TABLET PO SCH ×2 (09:34→20:21)
[2019-05-15] MEDS: QUEtiapine FUMARATE 25 MG TABLET PO SCH ×2 (09:34→20:21)
[2019-05-15] MEDS: PIPERACILLIN/TAZO 3.375 GM/D5W 50 ML IV SCH ×3 (11:02→22:26)
[2019-05-15] MEDS: ACETAMINOPHEN 325 MG TABLET PO PRN (21:46)
[2019-05-16] VITALS: BP 135/78
[2019-05-16] MEDS: PROPOFOL 1000 MG/ISO-OSM 100 ML IV PRN ×12 (00:44→23:39)
[2019-05-16 04:00] VITALS: BP_SYST 134; BP_SYST 135; BP_DIAS 78
[2019-05-16] MEDS: PIPERACILLIN/TAZO 3.375 GM/D5W 50 ML IV SCH ×4 (04:07→22:04)
[2019-05-16 04:54] LABS: BASOPHILS % (AUTO) 0.4 % (0.0-2.0); EOSINOPHILS % (AUTO) 2.8 % (1.0-6.0); HEMATOCRIT 49.7 % (41-53); HEMOGLOBIN 16.1 g/dL (13.5-17.5); LYMPHOCYTES # (AUTO) 1.4 K/uL (1.0-4.8); LYMPHOCYTES % (AUTO) 11.4 % (22.0-44.0); MEAN CORPUSCULAR HEMOGLOBIN 30.8 pg (26.0-34.0); MEAN CORPUSCULAR HGB CONC 32.5 G/dL (31.0-37.0); MEAN CORPUSCULAR VOLUME 95 fL (80-100); MONOCYTES # (AUTO) 1.2 K/uL (0.1-1.0); MONOCYTES % (AUTO) 10.1 % (2.0-9.0); NEUTROPHILS # (AUTO) 9.2 K/uL (1.8-7.7); NEUTROPHILS % (AUTO) 75.3 % (40.0-70.0); PLATELET COUNT (AUTO) 175 K/uL (150-450); RED BLOOD CELL COUNT(AUTO) 5.23 MIL/uL (4.50-5.90)
[2019-05-16 05:15] LABS: ANION GAP 7 mmol/L (8-16); CALCIUM, TOTAL 8.6 mg/dL (8.8-10.5); CARBON DIOXIDE 34 mmol/L (22-29); CHLORIDE 97 mmol/L (98-107); CREATININE 1.32 mg/dL (0.60-1.30); GLOMERULAR FILTR. RATE CALC > 60 mL/min (>60); GLUCOSE,RANDOM 97 mg/dL (70-110); POTASSIUM 3.8 mmol/L (3.5-5.1); SODIUM SERUM 138 mmol/L (136-145); UREA NITROGEN, BLOOD 13 mg/dL (7-18)
[2019-05-16 08:00] VITALS: BP 128/89
[2019-05-16 08:01] LABS: ABG BASE EXCESS 10.2 mmol/L (-2.0-3.0); ABG CARBOXYHEMOGLOBIN 1.4 % (0.0-3.0); ABG HCO3 31.4 mmol/L (22.0-26.0); ABG METHEMOGLOBIN 0.3 % (0.0-1.5); ABG OXYGEN CONTENT 20.2 mL/dL (15.0-23.0); ABG OXYGEN SATURATION 88.8 % (95.0-98.0); ABG OXYHEMOGLOBIN 87.3 % (94.0-100.0); ABG PCO2 57 mmHg (35-45); ABG PH 7.402 (7.350-7.450); ABG TOTAL HEMOGLOBIN 16.5 G/dL (12.0-18.0); PO2, ARTERIAL BG 59.9 mmHg (80.0-100.0); SOURCE, BLOOD GAS ARTERIAL; TEMPERATURE, FAHRENHEIT, BG 98.6 FAHREN (96.0-98.6)
[2019-05-16 08:04] LABS: O2 DEVICE,BLOOD GAS VENTILATOR (ROOM AIR); PEEP,BG 5 cm H2O; SITE, BLOOD GAS RT BRACHIAL; VT, ABG 600 ml
[2019-05-16] MEDS: MULTIVITAMINS WITH MINERALS, THERAPEUTIC 15 ML UDCUP NG SCH (08:32)
[2019-05-16] MEDS: QUEtiapine FUMARATE 25 MG TABLET PO SCH ×2 (08:33→21:03)
[2019-05-16] MEDS: APIXABAN 5 MG TABLET PO SCH ×2 (08:33→21:04)
[2019-05-16] MEDS: FUROSEMIDE 40 MG/4 ML VIAL IVP SCH ×2 (08:33→21:03)
[2019-05-16] MEDS: DOCUSATE SODIUM 100 MG CAPSULE PO SCH ×2 (08:33→21:04)
[2019-05-16] MEDS: FAMOTIDINE 20 MG TABLET PO SCH (08:33)
[2019-05-16] MEDS: RisperiDONE 2 MG TABLET PO SCH ×2 (08:33→21:02)
[2019-05-16 12:00] VITALS: BP 125/71
[2019-05-16 16:00] VITALS: BP 140/84
[2019-05-16] MEDS: ACETAMINOPHEN 325 MG TABLET PO PRN (18:05)
[2019-05-16 20:00] VITALS: BP 117/68
[2019-05-16] MEDS ORDERED: SODIUM CHLORIDE 0.9% 250 ML IV ONE (22:39)
[2019-05-16] MEDS ORDERED: SODIUM CHLORIDE 0.9% 500 ML IV ONE (22:39)
[2019-05-17] VITALS: BP 129/66
[2019-05-17] MEDS: PROPOFOL 1000 MG/ISO-OSM 100 ML IV PRN ×14 (01:57→23:35)
[2019-05-17] MEDS: PIPERACILLIN/TAZO 3.375 GM/D5W 50 ML IV SCH ×4 (03:55→22:23)
[2019-05-17 04:00] VITALS: BP 112/67
[2019-05-17 04:56] LABS: BASOPHILS % (AUTO) 0.7 % (0.0-2.0); EOSINOPHILS % (AUTO) 3.3 % (1.0-6.0); HEMATOCRIT 47.5 % (41-53); HEMOGLOBIN 15.7 g/dL (13.5-17.5); LYMPHOCYTES # (AUTO) 1.5 K/uL (1.0-4.8); LYMPHOCYTES % (AUTO) 12.7 % (22.0-44.0); MEAN CORPUSCULAR HEMOGLOBIN 31.1 pg (26.0-34.0); MEAN CORPUSCULAR VOLUME 94 fL (80-100); MONOCYTES # (AUTO) 0.9 K/uL (0.1-1.0); MONOCYTES % (AUTO) 8.1 % (2.0-9.0); NEUTROPHILS # (AUTO) 8.8 K/uL (1.8-7.7); NEUTROPHILS % (AUTO) 75.2 % (40.0-70.0); PLATELET COUNT (AUTO) 182 K/uL (150-450); RED BLOOD CELL COUNT(AUTO) 5.04 MIL/uL (4.50-5.90); RED CELL DISTRIBUTION WIDTH 15.8 % (11.5-14.5)
[2019-05-17 05:08] LABS: ANION GAP 3 mmol/L (8-16); CALCIUM, TOTAL 8.8 mg/dL (8.8-10.5); CARBON DIOXIDE 36 mmol/L (22-29); CHLORIDE 97 mmol/L (98-107); CREATININE 1.19 mg/dL (0.60-1.30); GLOMERULAR FILTR. RATE CALC > 60 mL/min (>60); GLUCOSE,RANDOM 117 mg/dL (70-110); POTASSIUM 3.5 mmol/L (3.5-5.1); SODIUM SERUM 136 mmol/L (136-145); UREA NITROGEN, BLOOD 15 mg/dL (7-18)
[2019-05-17 08:00] VITALS: BP 123/76
[2019-05-17] MEDS: FUROSEMIDE 40 MG/4 ML VIAL IVP SCH ×2 (09:00→20:37)
[2019-05-17] MEDS: MULTIVITAMINS WITH MINERALS, THERAPEUTIC 15 ML UDCUP NG SCH (09:00)
[2019-05-17] MEDS: MAGNESIUM HYDROXIDE SUSPENSION 30 ML UDCUP PO PRN (09:00)
[2019-05-17] MEDS: FAMOTIDINE 20 MG TABLET PO SCH (09:01)
[2019-05-17] MEDS: APIXABAN 5 MG TABLET PO SCH (09:01)
[2019-05-17] MEDS: DOCUSATE SODIUM 100 MG CAPSULE PO SCH ×2 (09:01→20:37)
[2019-05-17] MEDS: QUEtiapine FUMARATE 25 MG TABLET PO SCH ×2 (09:02→20:37)
[2019-05-17] MEDS: RisperiDONE 2 MG TABLET PO SCH ×2 (09:02→20:37)
[2019-05-17 12:00] VITALS: BP 135/96
[2019-05-17] MEDS: HALOPERIDOL LACTATE 5 MG/ML VIAL IVP PRN (14:59)
[2019-05-17] MEDS: ACETAMINOPHEN 325 MG TABLET PO PRN ×2 (15:03→20:37)
[2019-05-17 16:00] VITALS: BP 142/87
[2019-05-17 18:10] LABS: ABG A-A DIFF O2 215.9 mmHg (10-20.0); ABG BASE EXCESS 10.7 mmol/L (-2.0-3.0); ABG CARBOXYHEMOGLOBIN 1.2 % (0.0-3.0); ABG HCO3 32.6 mmol/L (22.0-26.0); ABG METHEMOGLOBIN 0.3 % (0.0-1.5); ABG OXYGEN CONTENT 21.1 mL/dL (15.0-23.0); ABG OXYGEN SATURATION 94.6 % (95.0-98.0); ABG OXYHEMOGLOBIN 93.2 % (94.0-100.0); ABG PCO2 53 mmHg (35-45); ABG PH 7.438 (7.350-7.450); ABG TOTAL HEMOGLOBIN 16.1 G/dL (12.0-18.0); SOURCE, BLOOD GAS ARTERIAL; TEMPERATURE, FAHRENHEIT, BG 100.2 FAHREN (96.0-98.6)
[2019-05-17 18:12] LABS: O2 DEVICE,BLOOD GAS VENTILATOR (ROOM AIR); PEEP,BG 5 cm H2O; SITE, BLOOD GAS LFT RADIAL; VT, ABG 600 ml
[2019-05-17 20:00] VITALS: BP 117/57
[2019-05-17 20:30] LABS: INR 1.1 (0.9-1.1); PROTHROMBIN TIME 10.8 SEC (9.4-11.6)
[2019-05-17] MEDS: HEPARIN SODIUM 25000 UNITS/D5W 250 ML IV PRN (22:23)
[2019-05-18] VITALS (7 sets, daily range): BP systolic 110–133; BP diastolic 61–78
[2019-05-18] MEDS: PROPOFOL 1000 MG/ISO-OSM 100 ML IV PRN ×13 (01:04→22:39)
[2019-05-18] MEDS: PIPERACILLIN/TAZO 3.375 GM/D5W 50 ML IV SCH ×4 (03:57→21:56)
[2019-05-18 05:28] LABS: BASOPHILS % (AUTO) 0.5 % (0.0-2.0); EOSINOPHILS % (AUTO) 4.5 % (1.0-6.0); HEMATOCRIT 46.6 % (41-53); HEMOGLOBIN 15.5 g/dL (13.5-17.5); LYMPHOCYTES # (AUTO) 1.8 K/uL (1.0-4.8); LYMPHOCYTES % (AUTO) 17.8 % (22.0-44.0); MEAN CORPUSCULAR HEMOGLOBIN 31.3 pg (26.0-34.0); MEAN CORPUSCULAR HGB CONC 33.2 G/dL (31.0-37.0); MEAN CORPUSCULAR VOLUME 94 fL (80-100); MONOCYTES # (AUTO) 1.1 K/uL (0.1-1.0); MONOCYTES % (AUTO) 10.5 % (2.0-9.0); NEUTROPHILS # (AUTO) 6.7 K/uL (1.8-7.7); NEUTROPHILS % (AUTO) 66.7 % (40.0-70.0); PLATELET COUNT (AUTO) 190 K/uL (150-450); RED BLOOD CELL COUNT(AUTO) 4.94 MIL/uL (4.50-5.90); RED CELL DISTRIBUTION WIDTH 15.6 % (11.5-14.5)
[2019-05-18 05:36] LABS: ANION GAP 9 mmol/L (8-16); CALCIUM, TOTAL 8.9 mg/dL (8.8-10.5); CARBON DIOXIDE 34 mmol/L (22-29); CHLORIDE 96 mmol/L (98-107); CREATININE 1.18 mg/dL (0.60-1.30); GLOMERULAR FILTR. RATE CALC > 60 mL/min (>60); GLUCOSE,RANDOM 107 mg/dL (70-110); POTASSIUM 3.3 mmol/L (3.5-5.1); SODIUM SERUM 139 mmol/L (136-145); UREA NITROGEN, BLOOD 18 mg/dL (7-18)
[2019-05-18] MEDS: HEPARIN SODIUM,PORCINE 5,000 UNITS/ML VIAL IVP PRN ×3 (05:46→22:32)
[2019-05-18] MEDS: QUEtiapine FUMARATE 25 MG TABLET PO SCH ×2 (08:45→20:28)
[2019-05-18] MEDS: FUROSEMIDE 40 MG/4 ML VIAL IVP SCH ×2 (08:46→20:28)
[2019-05-18] MEDS: MULTIVITAMINS WITH MINERALS, THERAPEUTIC 15 ML UDCUP NG SCH (08:46)
[2019-05-18] MEDS: DOCUSATE SODIUM 100 MG CAPSULE PO SCH ×2 (08:46→20:28)
[2019-05-18] MEDS: FAMOTIDINE 20 MG TABLET PO SCH (08:46)
[2019-05-18] MEDS: MAGNESIUM HYDROXIDE SUSPENSION 30 ML UDCUP PO PRN (08:46)
[2019-05-18] MEDS: RisperiDONE 2 MG TABLET PO SCH ×2 (08:46→20:28)
[2019-05-18] MEDS: HEPARIN SODIUM 25000 UNITS/D5W 250 ML IV PRN ×3 (13:22→22:29)
[2019-05-18] MEDS ORDERED: POTASSIUM CHLORIDE 20 MEQ ER TABLET PO PRN (19:30)
[2019-05-18] MEDS ORDERED: MAGNESIUM SULFATE 2 GM/WATER 50 ML IV PRN (19:30)
[2019-05-18] MEDS ORDERED: MAGNESIUM OXIDE 400 MG TABLET PO PRN (19:30)
[2019-05-18] MEDS ORDERED: MAGNESIUM SULFATE 4 GM/WATER 100 ML IV PRN (19:30)
[2019-05-18] MEDS: POTASSIUM CHL 10 MEQ/WATER 50 ML IV PRN ×3 (19:46→20:41)
[2019-05-18] MEDS: HALOPERIDOL LACTATE 5 MG/ML VIAL IVP PRN (20:01)
[2019-05-18 22:10] LABS: ALBUMIN 2.3 g/dL (3.4-5.0); POTASSIUM 3.7 mmol/L (3.5-5.1)
[2019-05-19] VITALS: BP 129/76
[2019-05-19] MEDS: PROPOFOL 1000 MG/ISO-OSM 100 ML IV PRN ×9 (01:09→21:12)
[2019-05-19] MEDS: HALOPERIDOL LACTATE 5 MG/ML VIAL IVP PRN ×3 (01:59→22:54)
[2019-05-19] MEDS: PIPERACILLIN/TAZO 3.375 GM/D5W 50 ML IV SCH ×4 (03:07→21:21)
[2019-05-19 04:00] VITALS: BP 110/59
[2019-05-19] MEDS: HEPARIN SODIUM 25000 UNITS/D5W 250 ML IV PRN ×4 (04:34→21:14)
[2019-05-19 05:26] LABS: BASOPHILS % (AUTO) 0.9 % (0.0-2.0); EOSINOPHILS % (AUTO) 3.5 % (1.0-6.0); HEMATOCRIT 43.5 % (41-53); HEMOGLOBIN 14.5 g/dL (13.5-17.5); LYMPHOCYTES # (AUTO) 1.5 K/uL (1.0-4.8); LYMPHOCYTES % (AUTO) 17.2 % (22.0-44.0); MEAN CORPUSCULAR HEMOGLOBIN 31.3 pg (26.0-34.0); MEAN CORPUSCULAR HGB CONC 33.3 G/dL (31.0-37.0); MEAN CORPUSCULAR VOLUME 94 fL (80-100); MONOCYTES # (AUTO) 0.9 K/uL (0.1-1.0); MONOCYTES % (AUTO) 10.4 % (2.0-9.0); NEUTROPHILS # (AUTO) 6.1 K/uL (1.8-7.7); PLATELET COUNT (AUTO) 207 K/uL (150-450); RED BLOOD CELL COUNT(AUTO) 4.64 MIL/uL (4.50-5.90); RED CELL DISTRIBUTION WIDTH 15.6 % (11.5-14.5)
[2019-05-19 05:49] LABS: ALANINE AMINOTRANSFERASE 47 U/L (12-78); ALBUMIN 2.2 g/dL (3.4-5.0); ALKALINE PHOSPHATASE 45 U/L (46-116); ANION GAP 4 mmol/L (8-16); ASPARTATE AMINOTRANSFERASE 37 U/L (15-37); BILIRUBIN,TOTAL 0.9 mg/dL (0.1-1.0); CALCIUM, TOTAL 8.9 mg/dL (8.8-10.5); CARBON DIOXIDE 36 mmol/L (22-29); CHLORIDE 97 mmol/L (98-107); GLOMERULAR FILTR. RATE CALC > 60 mL/min (>60); GLUCOSE,RANDOM 105 mg/dL (70-110); POTASSIUM 3.3 mmol/L (3.5-5.1); SODIUM SERUM 137 mmol/L (136-145); TOTAL PROTEIN, SERUM 7.5 g/dL (6.4-8.2); UREA NITROGEN, BLOOD 17 mg/dL (7-18)
[2019-05-19] MEDS: POTASSIUM CHL 10 MEQ/WATER 50 ML IV PRN ×6 (07:40→15:35)
[2019-05-19 08:00] VITALS: BP 156/92
[2019-05-19] MEDS: FUROSEMIDE 40 MG/4 ML VIAL IVP SCH ×2 (08:41→20:13)
[2019-05-19] MEDS: DOCUSATE SODIUM 100 MG CAPSULE PO SCH ×2 (08:41→20:13)
[2019-05-19] MEDS: RisperiDONE 2 MG TABLET PO SCH ×2 (08:41→20:13)
[2019-05-19] MEDS: QUEtiapine FUMARATE 25 MG TABLET PO SCH ×2 (08:41→20:13)
[2019-05-19] MEDS: FAMOTIDINE 20 MG TABLET PO SCH (08:41)
[2019-05-19] MEDS: MULTIVITAMINS WITH MINERALS, THERAPEUTIC 15 ML UDCUP NG SCH (08:41)
[2019-05-19 12:00] VITALS: BP 118/55
[2019-05-19 16:00] VITALS: BP 160/101
[2019-05-19 20:00] VITALS: BP 151/82
[2019-05-20] VITALS (9 sets, daily range): BP systolic 117–129; BP diastolic 58–72
[2019-05-20] MEDS: PROPOFOL 1000 MG/ISO-OSM 100 ML IV PRN ×9 (01:33→21:42)
[2019-05-20] MEDS: HEPARIN SODIUM 25000 UNITS/D5W 250 ML IV PRN ×4 (03:09→21:18)
[2019-05-20] MEDS: PIPERACILLIN/TAZO 3.375 GM/D5W 50 ML IV SCH ×4 (03:12→21:12)
[2019-05-20] MEDS: HALOPERIDOL LACTATE 5 MG/ML VIAL IVP PRN ×3 (04:54→18:42)
[2019-05-20] MEDS: HEPARIN SODIUM,PORCINE 5,000 UNITS/ML VIAL IVP PRN ×3 (06:31→23:00)
[2019-05-20 08:24] LABS: ANION GAP 7 mmol/L (8-16); CALCIUM, TOTAL 9.2 mg/dL (8.8-10.5); CARBON DIOXIDE 32 mmol/L (22-29); CHLORIDE 97 mmol/L (98-107); CREATININE 1.11 mg/dL (0.60-1.30); GLOMERULAR FILTR. RATE CALC > 60 mL/min (>60); GLUCOSE,RANDOM 105 mg/dL (70-110); POTASSIUM 3.5 mmol/L (3.5-5.1); SODIUM SERUM 136 mmol/L (136-145); UREA NITROGEN, BLOOD 16 mg/dL (7-18)
[2019-05-20] MEDS: MULTIVITAMINS WITH MINERALS, THERAPEUTIC 15 ML UDCUP NG SCH (08:31)
[2019-05-20] MEDS: FAMOTIDINE 20 MG TABLET PO SCH (08:32)
[2019-05-20] MEDS: FUROSEMIDE 40 MG/4 ML VIAL IVP SCH ×2 (08:32→20:31)
[2019-05-20] MEDS: DOCUSATE SODIUM 100 MG CAPSULE PO SCH ×2 (08:32→20:31)
[2019-05-20] MEDS: RisperiDONE 2 MG TABLET PO SCH ×2 (08:32→20:31)
[2019-05-20] MEDS: QUEtiapine FUMARATE 25 MG TABLET PO SCH ×2 (08:32→20:32)
[2019-05-20] MEDS: POTASSIUM CHL 10 MEQ/WATER 50 ML IV PRN ×3 (10:10→11:36)
[2019-05-21] VITALS: BP 114/84
[2019-05-21] MEDS: HALOPERIDOL LACTATE 5 MG/ML VIAL IVP PRN ×4 (01:40→18:21)
[2019-05-21] MEDS: PROPOFOL 1000 MG/ISO-OSM 100 ML IV PRN ×10 (01:45→22:07)
[2019-05-21] MEDS: HEPARIN SODIUM 25000 UNITS/D5W 250 ML IV PRN ×4 (02:54→22:09)
[2019-05-21] MEDS: PIPERACILLIN/TAZO 3.375 GM/D5W 50 ML IV SCH ×4 (03:42→22:09)
[2019-05-21 04:00] VITALS: BP 123/69
[2019-05-21 04:53] LABS: BASOPHILS % (AUTO) 0.7 % (0.0-2.0); EOSINOPHILS % (AUTO) 3.9 % (1.0-6.0); HEMATOCRIT 44.3 % (41-53); HEMOGLOBIN 14.7 g/dL (13.5-17.5); LYMPHOCYTES # (AUTO) 1.5 K/uL (1.0-4.8); LYMPHOCYTES % (AUTO) 13.9 % (22.0-44.0); MEAN CORPUSCULAR HEMOGLOBIN 31.3 pg (26.0-34.0); MEAN CORPUSCULAR HGB CONC 33.3 G/dL (31.0-37.0); MEAN CORPUSCULAR VOLUME 94 fL (80-100); MONOCYTES # (AUTO) 1.3 K/uL (0.1-1.0); MONOCYTES % (AUTO) 11.6 % (2.0-9.0); NEUTROPHILS # (AUTO) 7.6 K/uL (1.8-7.7); NEUTROPHILS % (AUTO) 69.9 % (40.0-70.0); PLATELET COUNT (AUTO) 247 K/uL (150-450); RED BLOOD CELL COUNT(AUTO) 4.72 MIL/uL (4.50-5.90); RED CELL DISTRIBUTION WIDTH 15.2 % (11.5-14.5)
[2019-05-21 05:08] LABS: ANION GAP 4 mmol/L (8-16); CALCIUM, TOTAL 9.6 mg/dL (8.8-10.5); CARBON DIOXIDE 33 mmol/L (22-29); CHLORIDE 97 mmol/L (98-107); CREATININE 1.09 mg/dL (0.60-1.30); GLOMERULAR FILTR. RATE CALC > 60 mL/min (>60); GLUCOSE,RANDOM 107 mg/dL (70-110); POTASSIUM 3.9 mmol/L (3.5-5.1); SODIUM SERUM 134 mmol/L (136-145); UREA NITROGEN, BLOOD 15 mg/dL (7-18)
[2019-05-21 08:00] VITALS: BP 118/68
[2019-05-21] MEDS: FAMOTIDINE 20 MG TABLET PO SCH (08:00)
[2019-05-21] MEDS: RisperiDONE 2 MG TABLET PO SCH ×2 (08:00→21:02)
[2019-05-21] MEDS: MULTIVITAMINS WITH MINERALS, THERAPEUTIC 15 ML UDCUP NG SCH (08:00)
[2019-05-21] MEDS: FUROSEMIDE 40 MG/4 ML VIAL IVP SCH ×2 (08:00→21:03)
[2019-05-21] MEDS: DOCUSATE SODIUM 100 MG CAPSULE PO SCH ×2 (08:00→21:00)
[2019-05-21] MEDS: QUEtiapine FUMARATE 25 MG TABLET PO SCH ×2 (08:00→21:02)
[2019-05-21] MEDS ORDERED: POTASSIUM CHL 10 MEQ/WATER 50 ML IV PRN (08:45)
[2019-05-21] MEDS ORDERED: SODIUM PHOS,M-BASIC-D-BASIC 30 MMOL in DEXTROSE 5%-WATER 250 ML IV ONE (08:45)
[2019-05-21] MEDS ORDERED: POTASSIUM CHLORIDE 20 MEQ ER TABLET PO PRN (08:45)
[2019-05-21] MEDS ORDERED: MAGNESIUM SULFATE 4 GM/WATER 100 ML IV ONE (08:45)
[2019-05-21 12:00] VITALS: BP 118/68
[2019-05-21 16:00] VITALS: BP 124/98
[2019-05-21 17:19] LABS: ABG A-A DIFF O2 194.8 mmHg (10-20.0); ABG BASE EXCESS 5.7 mmol/L (-2.0-3.0); ABG HCO3 27.7 mmol/L (22.0-26.0); ABG METHEMOGLOBIN 0.3 % (0.0-1.5); ABG OXYGEN CONTENT 21.4 mL/dL (15.0-23.0); ABG OXYGEN SATURATION 96.1 % (95.0-98.0); ABG OXYHEMOGLOBIN 94.9 % (94.0-100.0); ABG PCO2 60 mmHg (35-45); ABG PH 7.337 (7.350-7.450); O2 DEVICE,BLOOD GAS VENTILATOR (ROOM AIR); PO2, ARTERIAL BG 94.1 mmHg (80.0-100.0); SITE, BLOOD GAS LFT RADIAL; SOURCE, BLOOD GAS ARTERIAL; TEMPERATURE, FAHRENHEIT, BG 98.6 FAHREN (96.0-98.6); VENT MODE, BG CPAP (ROOM AIR)
[2019-05-21 17:20] LABS: PEEP,BG 5 cm H2O; PRESSURE SUPPORT, BG 10 cm H2O
[2019-05-21 20:00] VITALS: BP 136/64
[2019-05-21] MEDS: ACETAMINOPHEN 325 MG TABLET PO PRN (21:02)
[2019-05-21] MEDS ORDERED: SODIUM CHLORIDE 0.9% 250 ML IV ONE (21:53)
[2019-05-22] VITALS: BP 114/61
[2019-05-22] MEDS: PROPOFOL 1000 MG/ISO-OSM 100 ML IV PRN ×12 (00:33→23:04)
[2019-05-22 04:00] VITALS: BP 125/69
[2019-05-22] MEDS: PIPERACILLIN/TAZO 3.375 GM/D5W 50 ML IV SCH ×4 (04:03→21:55)
[2019-05-22] MEDS: HEPARIN SODIUM 25000 UNITS/D5W 250 ML IV PRN ×4 (04:26→21:59)
[2019-05-22] MEDS: HALOPERIDOL LACTATE 5 MG/ML VIAL IVP PRN ×2 (05:17→11:26)
[2019-05-22 05:28] LABS: ANION GAP 7 mmol/L (8-16); CALCIUM, TOTAL 9.2 mg/dL (8.8-10.5); CARBON DIOXIDE 32 mmol/L (22-29); CHLORIDE 96 mmol/L (98-107); CREATININE 1.04 mg/dL (0.60-1.30); GLOMERULAR FILTR. RATE CALC > 60 mL/min (>60); GLUCOSE,RANDOM 106 mg/dL (70-110); SODIUM SERUM 135 mmol/L (136-145); UREA NITROGEN, BLOOD 18 mg/dL (7-18)
[2019-05-22 05:42] LABS: POTASSIUM 2.9 mmol/L (3.5-5.1)
[2019-05-22] MEDS: POTASSIUM CHL 10 MEQ/WATER 50 ML IV PRN ×7 (05:52→12:59)
[2019-05-22 08:00] VITALS: BP 118/74
[2019-05-22] MEDS: FAMOTIDINE 20 MG TABLET PO SCH (09:08)
[2019-05-22] MEDS: RisperiDONE 2 MG TABLET PO SCH ×2 (09:08→20:52)
[2019-05-22] MEDS: FUROSEMIDE 40 MG/4 ML VIAL IVP SCH ×2 (09:08→20:54)
[2019-05-22] MEDS: QUEtiapine FUMARATE 25 MG TABLET PO SCH ×2 (09:09→20:52)
[2019-05-22] MEDS: DOCUSATE SODIUM 100 MG CAPSULE PO SCH ×2 (09:09→20:52)
[2019-05-22] MEDS: MULTIVITAMINS WITH MINERALS, THERAPEUTIC 15 ML UDCUP NG SCH (09:09)
[2019-05-22 12:00] VITALS: BP 124/70
[2019-05-22 16:00] VITALS: BP 120/70
[2019-05-22 20:00] VITALS: BP 126/72
[2019-05-23] VITALS: BP 120/67
[2019-05-23] MEDS: PROPOFOL 1000 MG/ISO-OSM 100 ML IV PRN ×12 (01:33→23:40)
[2019-05-23] MEDS: PIPERACILLIN/TAZO 3.375 GM/D5W 50 ML IV SCH ×4 (03:55→21:15)
[2019-05-23] MEDS: HEPARIN SODIUM 25000 UNITS/D5W 250 ML IV PRN (03:56)
[2019-05-23 04:00] VITALS: BP 123/70
[2019-05-23 04:56] LABS: BASOPHILS % (AUTO) 1.1 % (0.0-2.0); EOSINOPHILS % (AUTO) 4.3 % (1.0-6.0); HEMATOCRIT 45.3 % (41-53); HEMOGLOBIN 14.8 g/dL (13.5-17.5); LYMPHOCYTES # (AUTO) 1.5 K/uL (1.0-4.8); LYMPHOCYTES % (AUTO) 15.5 % (22.0-44.0); MEAN CORPUSCULAR HEMOGLOBIN 30.7 pg (26.0-34.0); MEAN CORPUSCULAR HGB CONC 32.7 G/dL (31.0-37.0); MEAN CORPUSCULAR VOLUME 94 fL (80-100); MONOCYTES % (AUTO) 10.2 % (2.0-9.0); NEUTROPHILS # (AUTO) 6.7 K/uL (1.8-7.7); NEUTROPHILS % (AUTO) 68.9 % (40.0-70.0); PLATELET COUNT (AUTO) 294 K/uL (150-450); RED BLOOD CELL COUNT(AUTO) 4.82 MIL/uL (4.50-5.90); RED CELL DISTRIBUTION WIDTH 15.2 % (11.5-14.5)
[2019-05-23 05:09] LABS: ANION GAP 8 mmol/L (8-16); CALCIUM, TOTAL 9.7 mg/dL (8.8-10.5); CARBON DIOXIDE 31 mmol/L (22-29); CHLORIDE 96 mmol/L (98-107); CREATININE 0.92 mg/dL (0.60-1.30); GLOMERULAR FILTR. RATE CALC > 60 mL/min (>60); GLUCOSE,RANDOM 103 mg/dL (70-110); POTASSIUM 3.7 mmol/L (3.5-5.1); SODIUM SERUM 135 mmol/L (136-145); UREA NITROGEN, BLOOD 16 mg/dL (7-18)
[2019-05-23 05:10] LABS: INR 1.1 (0.9-1.1); PROTHROMBIN TIME 11.4 SEC (9.4-11.6)
[2019-05-23 08:00] VITALS: BP 123/88
[2019-05-23] MEDS: QUEtiapine FUMARATE 25 MG TABLET PO SCH ×2 (08:22→19:54)
[2019-05-23] MEDS: RisperiDONE 2 MG TABLET PO SCH ×2 (08:22→19:53)
[2019-05-23] MEDS: FAMOTIDINE 20 MG TABLET PO SCH (08:22)
[2019-05-23] MEDS: FUROSEMIDE 40 MG/4 ML VIAL IVP SCH ×2 (08:22→20:22)
[2019-05-23] MEDS: DOCUSATE SODIUM 100 MG CAPSULE PO SCH ×2 (08:22→19:53)
[2019-05-23] MEDS: MULTIVITAMINS WITH MINERALS, THERAPEUTIC 15 ML UDCUP NG SCH (08:22)
[2019-05-23] MEDS: HALOPERIDOL LACTATE 5 MG/ML VIAL IVP PRN (11:03)
[2019-05-23 12:00] VITALS: BP 124/76
[2019-05-23] MEDS ORDERED: ROCURONIUM BROMIDE 10 MG/ML 5 ML VIAL IVP ONE (12:00)
[2019-05-23] MEDS ORDERED: PROPOFOL 1% 20 ML VIAL IVP ONE (12:00)
[2019-05-23] MEDS ORDERED: FentaNYL CITRATE-PF 100 MCG/2 ML VIAL IVP ONE (12:00)
[2019-05-23] MEDS: FentaNYL CITRATE PF 500 MCG in DEXTROSE 5%-WATER 90 ML IV PRN ×2 (12:36→21:12)
[2019-05-23] MEDS ORDERED: RINGERS SOLUTION,LACTATED 1,000 ML IV ONE (15:43)
[2019-05-23] MEDS ORDERED: ACETAMINOPHEN 500 MG/ISO-OSM 50 ML IV PRN (18:00)
[2019-05-23 18:40] VITALS: BP 145/77
[2019-05-23 20:00] VITALS: BP 129/75
[2019-05-23] MEDS ORDERED: SODIUM CHLORIDE 0.9% 250 ML IV ONE (20:27)
[2019-05-24] VITALS: BP 128/66
[2019-05-24] MEDS: FentaNYL CITRATE PF 500 MCG in DEXTROSE 5%-WATER 90 ML IV PRN ×4 (02:21→19:36)
[2019-05-24] MEDS: PIPERACILLIN/TAZO 3.375 GM/D5W 50 ML IV SCH ×4 (03:04→22:25)
[2019-05-24] MEDS: PROPOFOL 1000 MG/ISO-OSM 100 ML IV PRN ×10 (03:10→22:25)
[2019-05-24 04:00] VITALS: BP 124/62
[2019-05-24 04:45] LABS: EOSINOPHILS % (AUTO) 3.4 % (1.0-6.0); HEMATOCRIT 44.8 % (41-53); HEMOGLOBIN 14.7 g/dL (13.5-17.5); LYMPHOCYTES # (AUTO) 1.3 K/uL (1.0-4.8); LYMPHOCYTES % (AUTO) 12.3 % (22.0-44.0); MEAN CORPUSCULAR HEMOGLOBIN 30.9 pg (26.0-34.0); MEAN CORPUSCULAR HGB CONC 32.9 G/dL (31.0-37.0); MEAN CORPUSCULAR VOLUME 94 fL (80-100); MONOCYTES # (AUTO) 1.2 K/uL (0.1-1.0); MONOCYTES % (AUTO) 11.5 % (2.0-9.0); NEUTROPHILS # (AUTO) 7.7 K/uL (1.8-7.7); NEUTROPHILS % (AUTO) 71.8 % (40.0-70.0); PLATELET COUNT (AUTO) 287 K/uL (150-450); RED BLOOD CELL COUNT(AUTO) 4.77 MIL/uL (4.50-5.90); RED CELL DISTRIBUTION WIDTH 15.5 % (11.5-14.5)
[2019-05-24 05:11] LABS: ALANINE AMINOTRANSFERASE 103 U/L (12-78); ALBUMIN 2.5 g/dL (3.4-5.0); ALKALINE PHOSPHATASE 51 U/L (46-116); ANION GAP 10 mmol/L (8-16); ASPARTATE AMINOTRANSFERASE 43 U/L (15-37); BILIRUBIN,TOTAL 1.3 mg/dL (0.1-1.0); CALCIUM, TOTAL 9.9 mg/dL (8.8-10.5); CARBON DIOXIDE 30 mmol/L (22-29); CHLORIDE 96 mmol/L (98-107); CREATININE 1.07 mg/dL (0.60-1.30); GLOMERULAR FILTR. RATE CALC > 60 mL/min (>60); GLUCOSE,RANDOM 90 mg/dL (70-110); POTASSIUM 3.8 mmol/L (3.5-5.1); SODIUM SERUM 136 mmol/L (136-145); TOTAL PROTEIN, SERUM 8.2 g/dL (6.4-8.2); UREA NITROGEN, BLOOD 16 mg/dL (7-18)
[2019-05-24 08:00] VITALS: BP 125/69
[2019-05-24] MEDS: DOCUSATE SODIUM 100 MG CAPSULE PO SCH ×2 (09:00→20:18)
[2019-05-24] MEDS: RisperiDONE 2 MG TABLET PO SCH ×3 (09:00→21:00)
[2019-05-24] MEDS: MULTIVITAMINS WITH MINERALS, THERAPEUTIC 15 ML UDCUP NG SCH (09:00)
[2019-05-24] MEDS: QUEtiapine FUMARATE 25 MG TABLET PO SCH ×3 (09:00→21:00)
[2019-05-24] MEDS: FUROSEMIDE 40 MG/4 ML VIAL IVP SCH ×2 (09:50→20:18)
[2019-05-24 12:00] VITALS: BP 124/70
[2019-05-24] MEDS ORDERED: HEPARIN SODIUM,PORCINE 5,000 UNITS/ML VIAL IVP PRN ×2 (15:15)
[2019-05-24] MEDS: SODIUM CHLORIDE 0.45% 1,000 ML IV SCH (15:36)
[2019-05-24 15:37] LABS: ABG A-A DIFF O2 288.2 mmHg (10-20.0); ABG BASE EXCESS 1.2 mmol/L (-2.0-3.0); ABG HCO3 25.1 mmol/L (22.0-26.0); ABG METHEMOGLOBIN 0.3 % (0.0-1.5); ABG OXYGEN CONTENT 20.4 mL/dL (15.0-23.0); ABG OXYGEN SATURATION 94.9 % (95.0-98.0); ABG OXYHEMOGLOBIN 93.7 % (94.0-100.0); ABG PCO2 47 mmHg (35-45); ABG PH 7.372 (7.350-7.450); ABG TOTAL HEMOGLOBIN 15.5 G/dL (12.0-18.0); PO2, ARTERIAL BG 86.3 mmHg (80.0-100.0); SOURCE, BLOOD GAS ARTERIAL; TEMPERATURE, FAHRENHEIT, BG 100.9 FAHREN (96.0-98.6)
[2019-05-24] MEDS: FAMOTIDINE 10 MG/ML 2 ML VIAL IVP SCH (15:37)
[2019-05-24 15:38] LABS: SITE, BLOOD GAS LFT RADIAL
[2019-05-24 15:39] LABS: O2 DEVICE,BLOOD GAS VENTILATOR (ROOM AIR); VT, ABG 600 ml
[2019-05-24 15:40] LABS: PEEP,BG 10 cm H2O
[2019-05-24 15:43] LABS: INR 1.1 (0.9-1.1); PROTHROMBIN TIME 11.3 SEC (9.4-11.6)
[2019-05-24 16:00] VITALS: BP 133/72
[2019-05-24] MEDS: HEPARIN SODIUM 25000 UNITS/D5W 250 ML IV PRN (18:04)
[2019-05-24 20:00] VITALS: BP 126/59
[2019-05-24] MEDS: HALOPERIDOL LACTATE 5 MG/ML VIAL IVP PRN (22:26)
[2019-05-25] VITALS (8 sets, daily range): BP systolic 119–150; BP diastolic 47–89
[2019-05-25] MEDS: PROPOFOL 1000 MG/ISO-OSM 100 ML IV PRN ×16 (00:10→22:53)
[2019-05-25] MEDS: FentaNYL CITRATE PF 500 MCG in DEXTROSE 5%-WATER 90 ML IV PRN ×5 (00:47→23:04)
[2019-05-25] MEDS: HEPARIN SODIUM 25000 UNITS/D5W 250 ML IV PRN ×3 (00:47→20:37)
[2019-05-25] MEDS ORDERED: HEPARIN SODIUM,PORCINE 5,000 UNITS/ML VIAL IVP PRN (01:30)
[2019-05-25] MEDS: HEPARIN SODIUM,PORCINE 5,000 UNITS/ML VIAL IVP PRN ×2 (02:49→14:45)
[2019-05-25] MEDS: PIPERACILLIN/TAZO 3.375 GM/D5W 50 ML IV SCH ×4 (03:15→22:08)
[2019-05-25] MEDS ORDERED: SODIUM CHLORIDE 0.9% 250 ML IV ONE (03:19)
[2019-05-25] MEDS ORDERED: SODIUM CHLORIDE 0.9% 100 ML ONE (03:20)
[2019-05-25] MEDS: FUROSEMIDE 40 MG/4 ML VIAL IVP SCH ×2 (08:54→20:19)
[2019-05-25] MEDS: FAMOTIDINE 10 MG/ML 2 ML VIAL IVP SCH (08:54)
[2019-05-25] MEDS: HALOPERIDOL LACTATE 5 MG/ML VIAL IVP PRN ×2 (08:54→15:40)
[2019-05-25] MEDS: MULTIVITAMINS WITH MINERALS, THERAPEUTIC 15 ML UDCUP NG SCH (08:55)
[2019-05-25] MEDS: DOCUSATE SODIUM 100 MG CAPSULE PO SCH ×2 (08:56→20:21)
[2019-05-25] MEDS: QUEtiapine FUMARATE 25 MG TABLET PO SCH ×2 (08:56→20:21)
[2019-05-25] MEDS: RisperiDONE 2 MG TABLET PO SCH ×2 (08:56→20:19)
[2019-05-25] MEDS: SODIUM CHLORIDE 0.45% 1,000 ML IV SCH (10:30)
[2019-05-26] VITALS: BP 130/66
[2019-05-26] MEDS: PROPOFOL 1000 MG/ISO-OSM 100 ML IV PRN ×8 (01:24→23:01)
[2019-05-26] MEDS: HEPARIN SODIUM 25000 UNITS/D5W 250 ML IV PRN ×4 (03:29→22:39)
[2019-05-26 04:00] VITALS: BP 132/83
[2019-05-26] MEDS: PIPERACILLIN/TAZO 3.375 GM/D5W 50 ML IV SCH ×4 (04:15→22:07)
[2019-05-26] MEDS: FentaNYL CITRATE PF 500 MCG in DEXTROSE 5%-WATER 90 ML IV PRN ×4 (05:27→20:25)
[2019-05-26] MEDS ORDERED: SODIUM CHLORIDE 0.9% 250 ML IV ONE (05:56)
[2019-05-26 08:00] VITALS: BP 125/74
[2019-05-26] MEDS: FAMOTIDINE 10 MG/ML 2 ML VIAL IVP SCH (08:42)
[2019-05-26] MEDS: HALOPERIDOL LACTATE 5 MG/ML VIAL IVP PRN ×2 (08:42→19:43)
[2019-05-26] MEDS: RisperiDONE 2 MG TABLET PO SCH ×2 (08:42→20:29)
[2019-05-26] MEDS: FUROSEMIDE 40 MG/4 ML VIAL IVP SCH ×2 (08:42→20:29)
[2019-05-26] MEDS: QUEtiapine FUMARATE 25 MG TABLET PO SCH ×2 (08:42→20:29)
[2019-05-26] MEDS: MULTIVITAMINS WITH MINERALS, THERAPEUTIC 15 ML UDCUP NG SCH (08:42)
[2019-05-26] MEDS: DOCUSATE SODIUM 100 MG CAPSULE PO SCH ×2 (09:00→20:29)
[2019-05-26 12:00] VITALS: BP 122/66
[2019-05-26 16:00] VITALS: BP 120/70
[2019-05-26 20:00] VITALS: BP 133/75
[2019-05-26] MEDS: ACETAMINOPHEN 325 MG TABLET PO PRN (20:30)
[2019-05-26] MEDS: LORazepam 2 MG/ML VIAL IVP PRN (23:55)
[2019-05-27] VITALS: BP_SYST 129; BP_SYST 133; BP_DIAS 67; BP_DIAS 75
[2019-05-27] MEDS: PROPOFOL 1000 MG/ISO-OSM 100 ML IV PRN ×13 (01:11→23:42)
[2019-05-27] MEDS: LORazepam 2 MG/ML VIAL IVP PRN ×2 (03:17→11:15)
[2019-05-27] MEDS: PIPERACILLIN/TAZO 3.375 GM/D5W 50 ML IV SCH ×4 (03:25→21:46)
[2019-05-27] MEDS ORDERED: SODIUM CHLORIDE 0.9% 250 ML IV ONE (03:27)
[2019-05-27 04:00] VITALS: BP 133/69
[2019-05-27] MEDS: HEPARIN SODIUM 25000 UNITS/D5W 250 ML IV PRN ×4 (04:21→23:37)
[2019-05-27 05:22] LABS: BASOPHILS % (AUTO) 0.7 % (0.0-2.0); EOSINOPHILS % (AUTO) 4.5 % (1.0-6.0); HEMATOCRIT 41.8 % (41-53); HEMOGLOBIN 13.7 g/dL (13.5-17.5); LYMPHOCYTES # (AUTO) 1.3 K/uL (1.0-4.8); LYMPHOCYTES % (AUTO) 13.2 % (22.0-44.0); MEAN CORPUSCULAR HEMOGLOBIN 30.8 pg (26.0-34.0); MEAN CORPUSCULAR HGB CONC 32.9 G/dL (31.0-37.0); MEAN CORPUSCULAR VOLUME 94 fL (80-100); MONOCYTES # (AUTO) 0.9 K/uL (0.1-1.0); MONOCYTES % (AUTO) 9.4 % (2.0-9.0); NEUTROPHILS # (AUTO) 7.1 K/uL (1.8-7.7); NEUTROPHILS % (AUTO) 72.2 % (40.0-70.0); PLATELET COUNT (AUTO) 291 K/uL (150-450); RED BLOOD CELL COUNT(AUTO) 4.46 MIL/uL (4.50-5.90); RED CELL DISTRIBUTION WIDTH 15.3 % (11.5-14.5)
[2019-05-27 05:34] LABS: ANION GAP 8 mmol/L (8-16); CALCIUM, TOTAL 9.6 mg/dL (8.8-10.5); CARBON DIOXIDE 32 mmol/L (22-29); CHLORIDE 95 mmol/L (98-107); CREATININE 0.92 mg/dL (0.60-1.30); GLOMERULAR FILTR. RATE CALC > 60 mL/min (>60); GLUCOSE,RANDOM 122 mg/dL (70-110); POTASSIUM 3.2 mmol/L (3.5-5.1); SODIUM SERUM 135 mmol/L (136-145); UREA NITROGEN, BLOOD 14 mg/dL (7-18)
[2019-05-27] MEDS: HALOPERIDOL LACTATE 5 MG/ML VIAL IVP PRN ×2 (05:42→14:05)
[2019-05-27] MEDS: FentaNYL CITRATE PF 500 MCG in DEXTROSE 5%-WATER 90 ML IV PRN (05:57)
[2019-05-27] MEDS: POTASSIUM CHL 10 MEQ/WATER 50 ML IV PRN ×6 (06:58→12:10)
[2019-05-27 08:00] VITALS: BP 128/69
[2019-05-27] MEDS: ARIPiprazole 15 MG TABLET PO SCH (09:10)
[2019-05-27] MEDS: FUROSEMIDE 40 MG/4 ML VIAL IVP SCH ×2 (09:10→21:45)
[2019-05-27] MEDS: RisperiDONE 2 MG TABLET PO SCH ×2 (09:11→21:45)
[2019-05-27] MEDS: DOCUSATE SODIUM 100 MG CAPSULE PO SCH ×2 (09:11→21:00)
[2019-05-27] MEDS: FAMOTIDINE 10 MG/ML 2 ML VIAL IVP SCH (09:11)
[2019-05-27] MEDS: MULTIVITAMINS WITH MINERALS, THERAPEUTIC 15 ML UDCUP NG SCH (09:11)
[2019-05-27] MEDS: QUEtiapine FUMARATE 25 MG TABLET PO SCH ×2 (09:11→21:45)
[2019-05-27 12:00] VITALS: BP 129/63
[2019-05-27] MEDS: ACETAMINOPHEN 325 MG TABLET PO PRN ×3 (13:31→21:46)
[2019-05-27 16:00] VITALS: BP 126/70
[2019-05-27 20:00] VITALS: BP 139/69
[2019-05-28] VITALS: BP 125/66
[2019-05-28] MEDS: PROPOFOL 1000 MG/ISO-OSM 100 ML IV PRN ×10 (02:57→23:31)
[2019-05-28] MEDS: PIPERACILLIN/TAZO 3.375 GM/D5W 50 ML IV SCH ×3 (03:07→22:00)
[2019-05-28] MEDS ORDERED: SODIUM CHLORIDE 0.9% 250 ML IV ONE (03:37)
[2019-05-28] MEDS: HALOPERIDOL LACTATE 5 MG/ML VIAL IVP PRN (03:41)
[2019-05-28] MEDS: FentaNYL CITRATE PF 500 MCG in DEXTROSE 5%-WATER 90 ML IV PRN (03:41)
[2019-05-28 04:00] VITALS: BP 142/73
[2019-05-28] MEDS: LORazepam 2 MG/ML VIAL IVP PRN ×3 (04:42→17:26)
[2019-05-28 05:13] LABS: BASOPHILS % (AUTO) 0.9 % (0.0-2.0); EOSINOPHILS % (AUTO) 4.6 % (1.0-6.0); HEMATOCRIT 43.3 % (41-53); HEMOGLOBIN 14.2 g/dL (13.5-17.5); LYMPHOCYTES # (AUTO) 1.2 K/uL (1.0-4.8); LYMPHOCYTES % (AUTO) 12.7 % (22.0-44.0); MEAN CORPUSCULAR HEMOGLOBIN 30.6 pg (26.0-34.0); MEAN CORPUSCULAR HGB CONC 32.9 G/dL (31.0-37.0); MEAN CORPUSCULAR VOLUME 93 fL (80-100); MONOCYTES # (AUTO) 1.1 K/uL (0.1-1.0); MONOCYTES % (AUTO) 11.1 % (2.0-9.0); NEUTROPHILS # (AUTO) 6.9 K/uL (1.8-7.7); NEUTROPHILS % (AUTO) 70.7 % (40.0-70.0); PLATELET COUNT (AUTO) 306 K/uL (150-450); RED BLOOD CELL COUNT(AUTO) 4.65 MIL/uL (4.50-5.90); RED CELL DISTRIBUTION WIDTH 15.2 % (11.5-14.5)
[2019-05-28 05:30] LABS: ANION GAP 9 mmol/L (8-16); CALCIUM, TOTAL 9.6 mg/dL (8.8-10.5); CARBON DIOXIDE 31 mmol/L (22-29); CHLORIDE 96 mmol/L (98-107); CREATININE 0.88 mg/dL (0.60-1.30); GLOMERULAR FILTR. RATE CALC > 60 mL/min (>60); GLUCOSE,RANDOM 118 mg/dL (70-110); POTASSIUM 3.3 mmol/L (3.5-5.1); SODIUM SERUM 136 mmol/L (136-145); UREA NITROGEN, BLOOD 12 mg/dL (7-18)
[2019-05-28] MEDS: HEPARIN SODIUM 25000 UNITS/D5W 250 ML IV PRN (06:10)
[2019-05-28] MEDS: HEPARIN SODIUM,PORCINE 5,000 UNITS/ML VIAL IVP PRN (06:28)
[2019-05-28] MEDS: POTASSIUM CHL 10 MEQ/WATER 50 ML IV PRN ×3 (06:32→07:28)
[2019-05-28 08:00] VITALS: BP 127/73
[2019-05-28] MEDS: ARIPiprazole 15 MG TABLET PO SCH (08:00)
[2019-05-28] MEDS: MULTIVITAMINS WITH MINERALS, THERAPEUTIC 15 ML UDCUP NG SCH (08:00)
[2019-05-28] MEDS: RisperiDONE 2 MG TABLET PO SCH ×2 (08:01→21:02)
[2019-05-28] MEDS: DOCUSATE SODIUM 100 MG CAPSULE PO SCH ×2 (08:01→21:00)
[2019-05-28] MEDS: QUEtiapine FUMARATE 25 MG TABLET PO SCH ×2 (08:01→21:02)
[2019-05-28] MEDS: FUROSEMIDE 40 MG/4 ML VIAL IVP SCH ×2 (09:20→21:02)
[2019-05-28] MEDS: FAMOTIDINE 10 MG/ML 2 ML VIAL IVP SCH (09:21)
[2019-05-28 12:00] VITALS: BP 133/70
[2019-05-28] MEDS ORDERED: ONDANSETRON HCL 4 MG/2 ML VIAL IVP ONE (12:00)
[2019-05-28] MEDS ORDERED: PROPOFOL 1% 20 ML VIAL IVP ONE (12:00)
[2019-05-28] MEDS ORDERED: ROCURONIUM BROMIDE 10 MG/ML 5 ML VIAL IVP ONE (12:00)
[2019-05-28] MEDS ORDERED: SODIUM CHLORIDE 0.9% 1,000 ML IV ONE ×2 (13:29→14:09)
[2019-05-28] MEDS ORDERED: LIDOCAINE/PF 1% 30 ML VIAL ONE (14:09)
[2019-05-28] MEDS ORDERED: BUPIVACAINE 0.25%/EPI 1:200,000/PF 10 ML VIAL ONE ×2 (14:34)
[2019-05-28] MEDS ORDERED: SODIUM CL IRRIG SOLN BAG 0 ML IRRIG ONE (15:27)
[2019-05-28 16:00] VITALS: BP 127/74
[2019-05-28 20:00] VITALS: BP 136/82
[2019-05-29] VITALS: BP 140/84
[2019-05-29] MEDS: ACETAMINOPHEN 325 MG TABLET PO PRN (00:31)
[2019-05-29] MEDS: HALOPERIDOL LACTATE 5 MG/ML VIAL IVP PRN ×2 (00:44→08:33)
[2019-05-29] MEDS: FentaNYL CITRATE PF 500 MCG in DEXTROSE 5%-WATER 90 ML IV PRN ×2 (01:00→10:55)
[2019-05-29] MEDS: PROPOFOL 1000 MG/ISO-OSM 100 ML IV PRN ×8 (02:41→17:44)
[2019-05-29 04:00] VITALS: BP 133/74
[2019-05-29] MEDS: PIPERACILLIN/TAZO 3.375 GM/D5W 50 ML IV SCH ×3 (04:22→16:20)
[2019-05-29] MEDS: LORazepam 2 MG/ML VIAL IVP PRN (04:31)
[2019-05-29] MEDS ORDERED: SODIUM CHLORIDE 0.9% 100 ML ONE (06:02)
[2019-05-29 07:49] LABS: BASOPHILS % (AUTO) 0.5 % (0.0-2.0); EOSINOPHILS % (AUTO) 2.1 % (1.0-6.0); HEMATOCRIT 42.7 % (41-53); HEMOGLOBIN 13.8 g/dL (13.5-17.5); LYMPHOCYTES # (AUTO) 1.1 K/uL (1.0-4.8); LYMPHOCYTES % (AUTO) 9.7 % (22.0-44.0); MEAN CORPUSCULAR HEMOGLOBIN 30.4 pg (26.0-34.0); MEAN CORPUSCULAR HGB CONC 32.4 G/dL (31.0-37.0); MEAN CORPUSCULAR VOLUME 94 fL (80-100); MONOCYTES # (AUTO) 1.2 K/uL (0.1-1.0); MONOCYTES % (AUTO) 10.2 % (2.0-9.0); NEUTROPHILS % (AUTO) 77.5 % (40.0-70.0); PLATELET COUNT (AUTO) 270 K/uL (150-450); RED BLOOD CELL COUNT(AUTO) 4.55 MIL/uL (4.50-5.90); RED CELL DISTRIBUTION WIDTH 15.6 % (11.5-14.5)
[2019-05-29 07:59] LABS: ANION GAP 10 mmol/L (8-16); CALCIUM, TOTAL 9.6 mg/dL (8.8-10.5); CARBON DIOXIDE 29 mmol/L (22-29); CHLORIDE 97 mmol/L (98-107); CREATININE 0.88 mg/dL (0.60-1.30); GLOMERULAR FILTR. RATE CALC > 60 mL/min (>60); GLUCOSE,RANDOM 112 mg/dL (70-110); POTASSIUM 4.1 mmol/L (3.5-5.1); SODIUM SERUM 136 mmol/L (136-145); UREA NITROGEN, BLOOD 14 mg/dL (7-18)
[2019-05-29] MEDS: FAMOTIDINE 10 MG/ML 2 ML VIAL IVP SCH (08:33)
[2019-05-29] MEDS: MULTIVITAMINS WITH MINERALS, THERAPEUTIC 15 ML UDCUP NG SCH (08:33)
[2019-05-29] MEDS: FUROSEMIDE 40 MG/4 ML VIAL IVP SCH (08:33)
[2019-05-29] MEDS: ARIPiprazole 15 MG TABLET PO SCH (08:34)
[2019-05-29] MEDS: DOCUSATE SODIUM 100 MG CAPSULE PO SCH (08:34)
[2019-05-29] MEDS: RisperiDONE 2 MG TABLET PO SCH (08:34)
[2019-05-29] MEDS: QUEtiapine FUMARATE 25 MG TABLET PO SCH (08:35)
[2019-05-29] MEDS ORDERED: FentaNYL CITRATE-PF 100 MCG/2 ML VIAL IVP ONE (12:00)
[2019-05-29] MEDS ORDERED: MIDAZOLAM HCL 2 MG/2 ML VIAL IVP ONE (12:00)
[2019-05-29 17:44] VITALS: BP 118/71
[2019-05-29] MEDS: HEPARIN SODIUM 25000 UNITS/D5W 250 ML IV PRN (18:45)
== END 2019-05-29 18:55 | DRG 5 ==
LOC: EMS 17:14 → 5S 22:00 → ICU 05-12 19:45
PROVIDERS: ADMIT Internal Medicine; ATTEND Internal Medicine
PROC: 5A09357 Assistance with Respiratory Ventilation, Less than 24 Consecutive Hours, Continuous Positive Airway Pressure (ICD-10-PCS; 2019-05-11)
PROC: 5A1955Z Respiratory Ventilation, Greater than 96 Consecutive Hours (ICD-10-PCS; principal; 2019-05-12)
PROC: 0BH17EZ Insertion of Endotracheal Airway into Trachea, Via Natural or Artificial Opening (ICD-10-PCS; 2019-05-12)
PROC: 5A09357 Assistance with Respiratory Ventilation, Less than 24 Consecutive Hours, Continuous Positive Airway Pressure (ICD-10-PCS; 2019-05-12)
PROC: 0B110F4 Bypass Trachea to Cutaneous with Tracheostomy Device, Open Approach (ICD-10-PCS; 2019-05-23)
PROC: 0DH63UZ Insertion of Feeding Device into Stomach, Percutaneous Approach (ICD-10-PCS; 2019-05-28)
DX: J96.21 Acute and chronic respiratory failure with hypoxia (principal); J18.9 Pneumonia, unspecified organism; I50.9 Heart failure, unspecified; E44.0 Moderate protein-calorie malnutrition; R13.10 Dysphagia, unspecified; E66.2 Morbid (severe) obesity with alveolar hypoventilation; E87.5 Hyperkalemia; F25.1 Schizoaffective disorder, depressive type; E87.6 Hypokalemia; F43.10 Post-traumatic stress disorder, unspecified; F19.10 Other psychoactive substance abuse, uncomplicated; F31.9 Bipolar disorder, unspecified; J96.22 Acute and chronic respiratory failure with hypercapnia; I82.442 Acute embolism and thrombosis of left tibial vein; I82.531 Chronic embolism and thrombosis of right popliteal vein; I82.462 Acute embolism and thrombosis of left calf muscular vein; Z79.899 Other long term (current) drug therapy; Z68.44 Body mass index [BMI] 60.0-69.9, adult; Z90.49 Acquired absence of other specified parts of digestive tract; Z99.11 Dependence on respirator [ventilator] status
CPT/HCPCS: 36600; 82805; 83735; 84100; 84132; 84145; 85379; 87040; 87070; 87081; 87205; 93005; 93306; 93970; 94002; 94003; 94660; 99291; G0378; G0480; G0481; J0131; J0690; J1630; J1644; J1940; J2060; J2250; J2405; J2543; J2704; J3010; J3475; J3480; J3490; J7030; J7040; J7050; J7060; J7120

== ENCOUNTER 2019-12-28 15:30 | Emergency (ER) | payer OTHER ==
[~2019-12-28] VITALS: Ht 177.8 cm; Wt 193.2 kg
[~2019-12-28 15:30] MED LIST changes: -RISP2 PO; +RISP2TAB23 PO
[2019-12-28] MEDS ORDERED: XAR PO (15:37)
[2019-12-28] MEDS ORDERED: FURO20 PO (15:37)
[2019-12-28 18:26] LABS: BASOPHILS % (AUTO) 0.9 % (0.0-2.0); HEMATOCRIT 48.7 % (41-53); HEMOGLOBIN 15.7 g/dL (13.5-17.5); LYMPHOCYTES # (AUTO) 2.2 K/uL (1.0-4.8); LYMPHOCYTES % (AUTO) 18.7 % (22.0-44.0); MEAN CORPUSCULAR HEMOGLOBIN 30.2 pg (26.0-34.0); MEAN CORPUSCULAR HGB CONC 32.2 G/dL (31.0-37.0); MEAN CORPUSCULAR VOLUME 94 fL (80-100); MONOCYTES # (AUTO) 0.7 K/uL (0.1-1.0); MONOCYTES % (AUTO) 5.9 % (2.0-9.0); NEUTROPHILS # (AUTO) 8.8 K/uL (1.8-7.7); NEUTROPHILS % (AUTO) 73.5 % (40.0-70.0); PLATELET COUNT (AUTO) 237 K/uL (150-450); RED BLOOD CELL COUNT(AUTO) 5.19 MIL/uL (4.50-5.90); RED CELL DISTRIBUTION WIDTH 16.1 % (11.5-14.5)
[2019-12-28 18:48] LABS: INR 1.2 (0.9-1.1)
[2019-12-28 18:50] LABS: ANION GAP 2 mmol/L (8-16); CALCIUM, TOTAL 9.3 mg/dL (8.8-10.5); CARBON DIOXIDE 36 mmol/L (22-29); CHLORIDE 102 mmol/L (98-107); CREATININE 1.17 mg/dL (0.60-1.30); GLOMERULAR FILTR. RATE CALC > 60 mL/min (>60); GLUCOSE,RANDOM 95 mg/dL (70-110); POTASSIUM 4.2 mmol/L (3.5-5.1); SODIUM SERUM 140 mmol/L (136-145); UREA NITROGEN, BLOOD 18 mg/dL (7-18)
[2019-12-28 18:54] LABS: ALANINE AMINOTRANSFERASE 37 U/L (12-78); ALBUMIN 3.2 g/dL (3.4-5.0); ALKALINE PHOSPHATASE 81 U/L (46-116); ASPARTATE AMINOTRANSFERASE 17 U/L (15-37); BILIRUBIN,TOTAL 0.3 mg/dL (0.1-1.0); TOTAL PROTEIN, SERUM 7.9 g/dL (6.4-8.2)
[2019-12-28 19:36] LABS: B-TYPE NATRIURETIC PEPTIDE 30 pg/mL (0-100)
[2019-12-28] MEDS ORDERED: IOVERSOL 350 MG/ML 100 ML VIAL ONE (21:25)
[2019-12-28] MEDS ORDERED: SODIUM CHLORIDE 0.9% 100 ML ONE (21:25)
[2019-12-28 22:37] VITALS: BP 130/84
== END 2019-12-28 22:00 | disposition home or self-care (01) ==
LOC: EMS 15:30
DX: R06.02 Shortness of breath (principal); R05 Cough; R07.89 Other chest pain; R42 Dizziness and giddiness; M79.605 Pain in left leg; F31.9 Bipolar disorder, unspecified; F20.9 Schizophrenia, unspecified; Z79.899 Other long term (current) drug therapy
CPT/HCPCS: 36415; 71045; 71275; 80053; 83880; 84484; 85025; 85379; 85610; 85730; 93005; 93970; 99285; J7050; Q9967

== ENCOUNTER 2020-05-09 02:42 | Emergency (ER) | payer OTHER ==
[~2020-05-09] VITALS: Ht 177.8 cm; Wt 200.0 kg
[~2020-05-09 02:42] MED LIST changes: -ARIP15TA2 PO; +FURO20 PO; -RISP2TAB23 PO; +XAR PO
[2020-05-09] MEDS ORDERED: ONDANSETRON HCL 4 MG/2 ML VIAL IVP ONE (03:00)
[2020-05-09] MEDS ORDERED: BARIUM SULFATE 0.1% SUSPENSION 450 ML BOTTLE PO ONE (03:00)
[2020-05-09] MEDS ORDERED: SODIUM CHLORIDE 0.9% 1,000 ML IV ONE (03:00)
[2020-05-09] MEDS ORDERED: IOVERSOL 350 MG/ML 100 ML VIAL ONE (03:11)
[2020-05-09] MEDS ORDERED: SODIUM CHLORIDE 0.9% 100 ML ONE (03:11)
[2020-05-09 03:40] LABS: BASOPHILS % (AUTO) 0.4 % (0.0-2.0); EOSINOPHILS % (AUTO) 0.4 % (1.0-6.0); HEMOGLOBIN 18.7 g/dL (13.5-17.5); LYMPHOCYTES # (AUTO) 2.1 K/uL (1.0-4.8); LYMPHOCYTES % (AUTO) 20.4 % (22.0-44.0); MEAN CORPUSCULAR HEMOGLOBIN 30.9 pg (26.0-34.0); MEAN CORPUSCULAR HGB CONC 33.2 G/dL (31.0-37.0); MEAN CORPUSCULAR VOLUME 93 fL (80-100); MONOCYTES # (AUTO) 0.8 K/uL (0.1-1.0); MONOCYTES % (AUTO) 8.1 % (2.0-9.0); NEUTROPHILS # (AUTO) 7.2 K/uL (1.8-7.7); NEUTROPHILS % (AUTO) 70.7 % (40.0-70.0); PLATELET COUNT (AUTO) 211 K/uL (150-450); RED BLOOD CELL COUNT(AUTO) 6.04 MIL/uL (4.50-5.90); RED CELL DISTRIBUTION WIDTH 14.2 % (11.5-14.5)
[2020-05-09 03:42] LABS: ANION GAP 8 mmol/L (8-16); CALCIUM, TOTAL 10.3 mg/dL (8.8-10.5); CARBON DIOXIDE 33 mmol/L (22-29); CHLORIDE 99 mmol/L (98-107); CREATININE 1.31 mg/dL (0.60-1.30); GLOMERULAR FILTR. RATE CALC > 60 mL/min (>60); GLUCOSE,RANDOM 99 mg/dL (70-110); POTASSIUM 3.8 mmol/L (3.5-5.1); SODIUM SERUM 140 mmol/L (136-145); UREA NITROGEN, BLOOD 13 mg/dL (7-18)
[2020-05-09 03:48] LABS: ALANINE AMINOTRANSFERASE 191 U/L (12-78); ALKALINE PHOSPHATASE 67 U/L (46-116); ASPARTATE AMINOTRANSFERASE 54 U/L (15-37); BILIRUBIN,TOTAL 0.9 mg/dL (0.1-1.0); LIPASE 103 U/L (73-393); TOTAL PROTEIN, SERUM 8.5 g/dL (6.4-8.2)
[2020-05-09 03:57] LABS: HEMATOCRIT 56.3 % (41-53)
[2020-05-09] MEDS ORDERED: IOVERSOL 350 MG/ML 50 ML VIAL ONE (04:21)
[2020-05-09] MEDS ORDERED: ALBUTEROL SULFATE HFA 90 MCG/PUFF 8 GM INHALER IH ONE (04:30)
[2020-05-09] MEDS ORDERED: PB/HYOSCY/ATR/SCOP/LIDO/MAALOX 55 ML BOTTLE PO ONE (04:30)
[2020-05-09 08:05] LABS: APPEARANCE,URINE CLEAR (CLEAR); GLUCOSE, URINE (UA) NEGATIVE (NEGATIVE); KETONES,URINE 40 mg/dL (NEGATIVE); LEUKOCYTE ESTERASE ,URINE NEGATIVE (NEGATIVE); NITRATE,URINE NEGATIVE (NEGATIVE); OCCULT BLOOD,URINE NEGATIVE (NEGATIVE); PROTEIN,URINE POS 1+ (NEGATIVE)
[2020-05-09 08:10] LABS: BILIRUBIN,URINE PRELIM. POSITIVE (NEGATIVE)
[2020-05-09 08:12] LABS: BACTERIA,URINE None Seen /HPF (None Seen); RBC,URINE None Seen /HPF (0-2); RENAL EPITHELIAL CELLS,URINE Rare /LPF (None Seen); WBC,URINE 0-2 /HPF (0-5)
[2020-05-09 08:46] VITALS: BP 128/93
[2020-05-09] MEDS ORDERED: MAGNESIUM CITRATE 300 ML ORAL SOLUTION PO ONE (09:15)
== END 2020-05-09 10:12 | disposition home or self-care (01) ==
LOC: EMS 02:42
DX: R59.0 Localized enlarged lymph nodes (principal); K59.00 Constipation, unspecified
CPT/HCPCS: 36415; 71045; 74177; 80053; 81001; 83690; 84484; 85025; 93005; 96361; 96374; 99285; J2405; J7030; J7050; Q9967 ×2; J3535

== ENCOUNTER 2020-05-12 19:56 | Emergency (ER) | payer OTHER ==
[~2020-05-12] VITALS: Ht 177.8 cm; Wt 179.1 kg
[2020-05-12 21:42] LABS: BASOPHILS % (AUTO) 0.5 % (0.0-2.0); EOSINOPHILS % (AUTO) 0.3 % (1.0-6.0); HEMATOCRIT 52.8 % (41-53); HEMOGLOBIN 17.6 g/dL (13.5-17.5); LYMPHOCYTES # (AUTO) 1.7 K/uL (1.0-4.8); LYMPHOCYTES % (AUTO) 15.9 % (22.0-44.0); MEAN CORPUSCULAR HGB CONC 33.3 G/dL (31.0-37.0); MEAN CORPUSCULAR VOLUME 93 fL (80-100); MONOCYTES # (AUTO) 0.9 K/uL (0.1-1.0); MONOCYTES % (AUTO) 8.6 % (2.0-9.0); NEUTROPHILS # (AUTO) 7.9 K/uL (1.8-7.7); NEUTROPHILS % (AUTO) 74.7 % (40.0-70.0); PLATELET COUNT (AUTO) 215 K/uL (150-450); RED BLOOD CELL COUNT(AUTO) 5.67 MIL/uL (4.50-5.90); RED CELL DISTRIBUTION WIDTH 14.4 % (11.5-14.5)
[2020-05-12 22:07] LABS: ANION GAP 10 mmol/L (8-16); CARBON DIOXIDE 32 mmol/L (22-29); CHLORIDE 100 mmol/L (98-107); CREATININE 1.17 mg/dL (0.60-1.30); GLOMERULAR FILTR. RATE CALC > 60 mL/min (>60); GLUCOSE,RANDOM 104 mg/dL (70-110); POTASSIUM 3.6 mmol/L (3.5-5.1); SODIUM SERUM 142 mmol/L (136-145); UREA NITROGEN, BLOOD 16 mg/dL (7-18)
[2020-05-12 22:12] LABS: ALANINE AMINOTRANSFERASE 299 U/L (12-78); ALBUMIN 3.9 g/dL (3.4-5.0); ALKALINE PHOSPHATASE 72 U/L (46-116); ASPARTATE AMINOTRANSFERASE 96 U/L (15-37); BILIRUBIN,TOTAL 1.2 mg/dL (0.1-1.0); LIPASE 98 U/L (73-393); TOTAL PROTEIN, SERUM 8.2 g/dL (6.4-8.2)
[2020-05-13] MEDS ORDERED: DOCUSATE SODIUM/BENZOCAINE 283-20MG/5 ML MINI-ENEMA PR ONE
[2020-05-13 00:17] LABS: THYROID STIMULATING HORMONE 1.75 uIU/mL (0.36-3.74)
[2020-05-13 00:51] VITALS: BP 147/95
== END 2020-05-13 01:15 | disposition home or self-care (01) ==
LOC: EMS 19:57
DX: K59.00 Constipation, unspecified (principal)
CPT/HCPCS: 84443

== ENCOUNTER 2020-06-23 10:28 | Inpatient (IN) | payer MEDICAID ==
[~2020-06-23] VITALS: Ht 177.8 cm; Wt 181.4 kg
[~2020-06-23 10:28] MED LIST changes: -FURO20 PO; +FURO40 PO; +HYDR25TA84 PO; +LISI-662 PO; +METO100T14 PO; -METO50 PO; +ONDA-104 PO; +RIVA20TA PO; -XAR PO
[2020-06-23] MEDS ORDERED: LURA80TA2 PO (12:25)
[2020-06-23] MEDS ORDERED: METO-558 PO (12:25)
[2020-06-23] MEDS ORDERED: POLY17PO47 PO (12:25)
[2020-06-23] MEDS ORDERED: ACET-784 PO (12:26)
[2020-06-23] MEDS ORDERED: SERT100T12 PO (12:26)
[2020-06-23] MEDS ORDERED: ALBU8HFA IH (12:27)
[2020-06-23] MEDS ORDERED: HYDR25TA84 PO (12:27)
[2020-06-23] MEDS ORDERED: LACT30L PO (12:28)
[2020-06-23] MEDS ORDERED: GABA-1216 PO (12:28)
[2020-06-23] MEDS ORDERED: ONDANSETRON HCL 4 MG TABLET PO PRN (14:30)
[2020-06-23] MEDS ORDERED: HydrALAZINE HCL 25 MG TABLET PO PRN (14:30)
[2020-06-23] MEDS ORDERED: LACTULOSE 20 GM/30 ML SOLUTION UDCUP PO PRN (14:30)
[2020-06-23 14:41] VITALS: BP 115/76
[2020-06-23] MEDS: RIVAROXABAN 20 MG TABLET PO SCH (16:56)
[2020-06-23] MEDS: QUEtiapine FUMARATE 25 MG TABLET PO SCH (16:58)
[2020-06-23 19:54] VITALS: BP 119/77
[2020-06-24 03:13] VITALS: BP 109/70
[2020-06-24] MEDS: LURASIDONE HCL 80 MG TABLET PO SCH (06:51)
[2020-06-24] MEDS ORDERED: PETROLATUM,WHITE 28 GM JELLY TP PRN (07:00)
[2020-06-24] MEDS ORDERED: ALBUTEROL SULFATE HFA 90 MCG/PUFF 8 GM INHALER IH PRN (07:00)
[2020-06-24] MEDS ORDERED: LOPERAMIDE HCL 2 MG CAPSULE PO PRN (07:00)
[2020-06-24] MEDS ORDERED: MAGNESIUM HYDROXIDE SUSPENSION 30 ML UDCUP PO PRN (07:00)
[2020-06-24] MEDS ORDERED: NICOTINE 14 MG/24 HOUR PATCH TD PRN (07:00)
[2020-06-24] MEDS ORDERED: GuaiFENesin/D-METHORPHAN [SUGAR-FREE] 200-20MG/10 ML SYRUP UDCUP PO PRN (07:00)
[2020-06-24] MEDS ORDERED: DOCUSATE SODIUM 100 MG CAPSULE PO PRN (07:00)
[2020-06-24] MEDS ORDERED: ACETAMINOPHEN 325 MG TABLET PO PRN (07:00)
[2020-06-24] MEDS ORDERED: ONDANSETRON HCL 4 MG TABLET PO PRN (07:00)
[2020-06-24] MEDS ORDERED: CloNIDine HCL 0.1 MG TABLET PO PRN (07:00)
[2020-06-24 08:00] VITALS: BP 122/55
[2020-06-24] MEDS: FUROSEMIDE 40 MG TABLET PO SCH (08:08)
[2020-06-24] MEDS: METOPROLOL SUCCINATE 25 MG ER TABLET PO SCH (08:08)
[2020-06-24] MEDS: SERTRALINE HCL 100 MG TABLET PO SCH (08:08)
[2020-06-24] MEDS: ALBUTEROL SULFATE HFA 90 MCG/PUFF 8 GM INHALER IH PRN ×2 (08:18→12:36)
[2020-06-24] MEDS: GABAPENTIN 100 MG CAPSULE PO SCH (09:00)
[2020-06-24] MEDS: QUEtiapine FUMARATE 25 MG TABLET PO SCH ×3 (09:00→16:44)
[2020-06-24] MEDS: POLYETHYLENE GLYCOL 3350 17 GM PACKET PO SCH (09:00)
[2020-06-24 16:20] VITALS: BP 130/70
[2020-06-24] MEDS: RIVAROXABAN 20 MG TABLET PO SCH (16:38)
[2020-06-25] MEDS: IBUPROFEN 400 MG TABLET PO PRN ×2 (00:53→20:44)
[2020-06-25] MEDS: LURASIDONE HCL 80 MG TABLET PO SCH (06:43)
[2020-06-25 08:00] VITALS: BP 130/72
[2020-06-25] MEDS: FUROSEMIDE 40 MG TABLET PO SCH (08:19)
[2020-06-25] MEDS: METOPROLOL SUCCINATE 25 MG ER TABLET PO SCH (08:19)
[2020-06-25] MEDS: SERTRALINE HCL 100 MG TABLET PO SCH (08:19)
[2020-06-25] MEDS: ALBUTEROL SULFATE HFA 90 MCG/PUFF 8 GM INHALER IH PRN ×2 (08:40→17:36)
[2020-06-25] MEDS: POLYETHYLENE GLYCOL 3350 17 GM PACKET PO SCH (09:00)
[2020-06-25] MEDS: QUEtiapine FUMARATE 25 MG TABLET PO SCH (09:00)
[2020-06-25] MEDS: GABAPENTIN 100 MG CAPSULE PO SCH (09:00)
[2020-06-25 16:05] VITALS: BP 144/89
[2020-06-25] MEDS: RIVAROXABAN 20 MG TABLET PO SCH (16:43)
[2020-06-26 00:27] VITALS: BP 140/86
[2020-06-26] MEDS: LURASIDONE HCL 60 MG TABLET PO SCH (06:37)
[2020-06-26 08:00] VITALS: BP 133/93
[2020-06-26] MEDS: FUROSEMIDE 40 MG TABLET PO SCH (08:56)
[2020-06-26] MEDS: METOPROLOL SUCCINATE 25 MG ER TABLET PO SCH (08:57)
[2020-06-26] MEDS: SERTRALINE HCL 100 MG TABLET PO SCH (08:57)
[2020-06-26] MEDS: POLYETHYLENE GLYCOL 3350 17 GM PACKET PO SCH (09:00)
[2020-06-26] MEDS: GABAPENTIN 100 MG CAPSULE PO SCH (09:00)
[2020-06-26] MEDS: ALBUTEROL SULFATE HFA 90 MCG/PUFF 8 GM INHALER IH PRN (12:19)
[2020-06-26] MEDS: RIVAROXABAN 20 MG TABLET PO SCH (16:26)
[2020-06-26 17:03] VITALS: BP 111/72
[2020-06-27] MEDS: LURASIDONE HCL 60 MG TABLET PO SCH (06:48)
[2020-06-27 08:00] VITALS: BP 137/88
[2020-06-27] MEDS: GABAPENTIN 100 MG CAPSULE PO SCH (08:21)
[2020-06-27] MEDS: SERTRALINE HCL 100 MG TABLET PO SCH (08:21)
[2020-06-27] MEDS: FUROSEMIDE 40 MG TABLET PO SCH (08:21)
[2020-06-27] MEDS: METOPROLOL SUCCINATE 25 MG ER TABLET PO SCH (08:21)
[2020-06-27] MEDS: POLYETHYLENE GLYCOL 3350 17 GM PACKET PO SCH (08:26)
[2020-06-27] MEDS: IBUPROFEN 400 MG TABLET PO PRN (08:28)
[2020-06-27 16:32] VITALS: BP 144/83
[2020-06-27] MEDS: RIVAROXABAN 20 MG TABLET PO SCH (16:35)
[2020-06-27 20:34] VITALS: BP 140/79
[2020-06-27] MEDS: ACETAMINOPHEN 325 MG TABLET PO PRN (20:34)
[2020-06-28 00:59] VITALS: BP 142/88
[2020-06-28] MEDS: LURASIDONE HCL 60 MG TABLET PO SCH (06:37)
[2020-06-28] MEDS: GABAPENTIN 100 MG CAPSULE PO SCH ×2 (09:00→09:07)
[2020-06-28] MEDS: SERTRALINE HCL 100 MG TABLET PO SCH (09:07)
[2020-06-28] MEDS: FUROSEMIDE 40 MG TABLET PO SCH (09:07)
[2020-06-28] MEDS: METOPROLOL SUCCINATE 25 MG ER TABLET PO SCH (09:08)
[2020-06-28] MEDS: POLYETHYLENE GLYCOL 3350 17 GM PACKET PO SCH (09:08)
[2020-06-28 12:40] VITALS: BP 144/94
[2020-06-28 14:48] VITALS: BP 150/91
[2020-06-28 16:00] VITALS: BP 129/79
[2020-06-28] MEDS: RIVAROXABAN 20 MG TABLET PO SCH (16:47)
[2020-06-28 17:56] LABS: COVID AG,FIA SOURCE NASOPHARYNGEAL
[2020-06-28] MEDS: ALBUTEROL SULFATE HFA 90 MCG/PUFF 8 GM INHALER IH PRN (19:25)
[2020-06-29] MEDS: LURASIDONE HCL 60 MG TABLET PO SCH (06:32)
[2020-06-29] MEDS: GABAPENTIN 100 MG CAPSULE PO SCH (09:00)
[2020-06-29] MEDS: METOPROLOL SUCCINATE 25 MG ER TABLET PO SCH (09:30)
[2020-06-29] MEDS: SERTRALINE HCL 100 MG TABLET PO SCH (09:30)
[2020-06-29] MEDS: FUROSEMIDE 40 MG TABLET PO SCH (09:31)
[2020-06-29] MEDS: POLYETHYLENE GLYCOL 3350 17 GM PACKET PO SCH (09:33)
[2020-06-29 10:03] VITALS: BP 149/97
[2020-06-29 16:00] VITALS: BP 149/96
[2020-06-29] MEDS: RIVAROXABAN 20 MG TABLET PO SCH (17:14)
[2020-06-29] MEDS: ALBUTEROL SULFATE HFA 90 MCG/PUFF 8 GM INHALER IH PRN (23:27)
[2020-06-30] MEDS: LURASIDONE HCL 60 MG TABLET PO SCH (06:44)
[2020-06-30] MEDS: METOPROLOL SUCCINATE 25 MG ER TABLET PO SCH (08:37)
[2020-06-30] MEDS: SERTRALINE HCL 100 MG TABLET PO SCH (08:37)
[2020-06-30] MEDS: FUROSEMIDE 40 MG TABLET PO SCH (08:37)
[2020-06-30] MEDS: POLYETHYLENE GLYCOL 3350 17 GM PACKET PO SCH (08:40)
[2020-06-30] MEDS: GABAPENTIN 100 MG CAPSULE PO SCH (08:41)
[2020-06-30] MEDS: ALBUTEROL SULFATE HFA 90 MCG/PUFF 8 GM INHALER IH PRN (09:49)
[2020-06-30 10:06] VITALS: BP 119/64
[2020-06-30 16:00] VITALS: BP 120/81
[2020-06-30] MEDS: RIVAROXABAN 20 MG TABLET PO SCH (16:19)
[2020-06-30] MEDS: ACETAMINOPHEN 325 MG TABLET PO PRN (20:25)
[2020-07-01] MEDS: LURASIDONE HCL 60 MG TABLET PO SCH (06:51)
[2020-07-01] MEDS: METOPROLOL SUCCINATE 25 MG ER TABLET PO SCH (08:29)
[2020-07-01] MEDS: SERTRALINE HCL 100 MG TABLET PO SCH (08:29)
[2020-07-01] MEDS: FUROSEMIDE 40 MG TABLET PO SCH (08:29)
[2020-07-01] MEDS: POLYETHYLENE GLYCOL 3350 17 GM PACKET PO SCH (08:29)
[2020-07-01] MEDS: GABAPENTIN 100 MG CAPSULE PO SCH (08:29)
[2020-07-01 08:50] VITALS: BP 147/96
[2020-07-01 16:00] VITALS: BP 119/72
[2020-07-01] MEDS: RIVAROXABAN 20 MG TABLET PO SCH (16:29)
[2020-07-01] MEDS: ALBUTEROL SULFATE HFA 90 MCG/PUFF 8 GM INHALER IH PRN (16:52)
[2020-07-01] MEDS: IBUPROFEN 400 MG TABLET PO PRN (18:09)
[2020-07-02] MEDS: LURASIDONE HCL 60 MG TABLET PO SCH (06:46)
[2020-07-02] MEDS: SERTRALINE HCL 100 MG TABLET PO SCH (08:37)
[2020-07-02] MEDS: POLYETHYLENE GLYCOL 3350 17 GM PACKET PO SCH (08:38)
[2020-07-02] MEDS: FUROSEMIDE 40 MG TABLET PO SCH (08:38)
[2020-07-02] MEDS: METOPROLOL SUCCINATE 25 MG ER TABLET PO SCH (08:38)
[2020-07-02 08:50] VITALS: BP 144/97
[2020-07-02] MEDS: GABAPENTIN 100 MG CAPSULE PO SCH (09:00)
[2020-07-02 16:16] VITALS: BP 115/79
[2020-07-02] MEDS: RIVAROXABAN 20 MG TABLET PO SCH (16:18)
[2020-07-03] MEDS: LURASIDONE HCL 60 MG TABLET PO SCH (07:04)
[2020-07-03 08:00] VITALS: BP 154/97
[2020-07-03] MEDS: POLYETHYLENE GLYCOL 3350 17 GM PACKET PO SCH (08:44)
[2020-07-03] MEDS: SERTRALINE HCL 100 MG TABLET PO SCH (08:44)
[2020-07-03] MEDS: FUROSEMIDE 40 MG TABLET PO SCH (08:44)
[2020-07-03] MEDS: GABAPENTIN 100 MG CAPSULE PO SCH (08:45)
[2020-07-03] MEDS: METOPROLOL SUCCINATE 25 MG ER TABLET PO SCH (08:45)
[2020-07-03 16:12] VITALS: BP 136/85
[2020-07-03] MEDS: RIVAROXABAN 20 MG TABLET PO SCH (16:48)
[2020-07-03 20:17] VITALS: BP 110/56
[2020-07-03] MEDS: IBUPROFEN 400 MG TABLET PO PRN (20:17)
[2020-07-03] MEDS: MAG HYDROX/AL HYDROX/SIMETH ES 30 ML SUSPENSION UDCUP PO PRN (23:51)
[2020-07-04 00:54] VITALS: BP 131/80
[2020-07-04] MEDS: LURASIDONE HCL 60 MG TABLET PO SCH (06:45)
[2020-07-04 08:16] VITALS: BP 138/83
[2020-07-04] MEDS: POLYETHYLENE GLYCOL 3350 17 GM PACKET PO SCH (08:40)
[2020-07-04] MEDS: FUROSEMIDE 40 MG TABLET PO SCH (08:40)
[2020-07-04] MEDS: METOPROLOL SUCCINATE 25 MG ER TABLET PO SCH (08:40)
[2020-07-04] MEDS: SERTRALINE HCL 100 MG TABLET PO SCH (08:40)
[2020-07-04] MEDS: GABAPENTIN 100 MG CAPSULE PO SCH (09:00)
[2020-07-04 16:00] VITALS: BP 130/67
[2020-07-04] MEDS: RIVAROXABAN 20 MG TABLET PO SCH (16:22)
[2020-07-04] MEDS: ALBUTEROL SULFATE HFA 90 MCG/PUFF 8 GM INHALER IH PRN (17:15)
[2020-07-04] MEDS: IBUPROFEN 400 MG TABLET PO PRN (21:23)
[2020-07-05 00:24] VITALS: BP 129/70
[2020-07-05] MEDS: LURASIDONE HCL 60 MG TABLET PO SCH (07:06)
[2020-07-05 08:00] VITALS: BP 143/83
[2020-07-05] MEDS: METOPROLOL SUCCINATE 25 MG ER TABLET PO SCH (08:09)
[2020-07-05] MEDS: FUROSEMIDE 40 MG TABLET PO SCH (08:09)
[2020-07-05] MEDS: SERTRALINE HCL 100 MG TABLET PO SCH (08:09)
[2020-07-05] MEDS: POLYETHYLENE GLYCOL 3350 17 GM PACKET PO SCH (08:12)
[2020-07-05] MEDS: GABAPENTIN 100 MG CAPSULE PO SCH (08:12)
[2020-07-05] MEDS: IBUPROFEN 400 MG TABLET PO PRN (11:12)
[2020-07-05 11:13] VITALS: BP 117/81
[2020-07-05 15:34] LABS: COVID AG,FIA SOURCE NASOPHARYNGEAL
[2020-07-05 16:00] VITALS: BP 140/86
[2020-07-05] MEDS: RIVAROXABAN 20 MG TABLET PO SCH (16:22)
[2020-07-06 00:25] VITALS: BP 136/84
[2020-07-06] MEDS: LURASIDONE HCL 60 MG TABLET PO SCH (07:00)
[2020-07-06] MEDS: METOPROLOL SUCCINATE 25 MG ER TABLET PO SCH (08:16)
[2020-07-06] MEDS: POLYETHYLENE GLYCOL 3350 17 GM PACKET PO SCH (08:16)
[2020-07-06] MEDS: FUROSEMIDE 40 MG TABLET PO SCH (08:16)
[2020-07-06] MEDS: SERTRALINE HCL 100 MG TABLET PO SCH (08:17)
[2020-07-06] MEDS: GABAPENTIN 100 MG CAPSULE PO SCH (08:22)
[2020-07-06 08:27] VITALS: BP 127/98
[2020-07-06] MEDS: IBUPROFEN 400 MG TABLET PO PRN (11:29)
[2020-07-06 16:12] VITALS: BP 124/63
[2020-07-06] MEDS: RIVAROXABAN 20 MG TABLET PO SCH (18:32)
[2020-07-06 22:48] VITALS: BP 120/80
[2020-07-06] MEDS: ACETAMINOPHEN 325 MG TABLET PO PRN (22:49)
[2020-07-07] MEDS: LURASIDONE HCL 60 MG TABLET PO SCH (06:37)
[2020-07-07 08:15] VITALS: BP 140/99
[2020-07-07] MEDS: GABAPENTIN 100 MG CAPSULE PO SCH (08:53)
[2020-07-07] MEDS: METOPROLOL SUCCINATE 25 MG ER TABLET PO SCH (08:55)
[2020-07-07] MEDS: FUROSEMIDE 40 MG TABLET PO SCH (08:55)
[2020-07-07] MEDS: SERTRALINE HCL 100 MG TABLET PO SCH (08:56)
[2020-07-07] MEDS: POLYETHYLENE GLYCOL 3350 17 GM PACKET PO SCH (08:56)
[2020-07-07] MEDS: RIVAROXABAN 20 MG TABLET PO SCH (16:33)
[2020-07-07] MEDS: ACETAMINOPHEN 325 MG TABLET PO PRN (20:48)
[2020-07-07 20:49] VITALS: BP 120/80
[2020-07-08] MEDS: MAG HYDROX/AL HYDROX/SIMETH ES 30 ML SUSPENSION UDCUP PO PRN (00:25)
[2020-07-08 00:41] VITALS: BP 125/85
[2020-07-08] MEDS: LURASIDONE HCL 60 MG TABLET PO SCH (06:54)
[2020-07-08 08:00] VITALS: BP 144/93
[2020-07-08] MEDS: GABAPENTIN 100 MG CAPSULE PO SCH ×2 (09:00→09:48)
[2020-07-08] MEDS: METOPROLOL SUCCINATE 25 MG ER TABLET PO SCH (09:48)
[2020-07-08] MEDS: SERTRALINE HCL 100 MG TABLET PO SCH (09:48)
[2020-07-08] MEDS: POLYETHYLENE GLYCOL 3350 17 GM PACKET PO SCH (09:49)
[2020-07-08] MEDS: FUROSEMIDE 40 MG TABLET PO SCH (09:51)
[2020-07-08 16:33] VITALS: BP 116/61
[2020-07-08] MEDS: RIVAROXABAN 20 MG TABLET PO SCH (16:37)
[2020-07-08 20:13] VITALS: BP 121/78
[2020-07-08] MEDS: ACETAMINOPHEN 325 MG TABLET PO PRN (20:13)
[2020-07-09] VITALS: BP 119/84
[2020-07-09] MEDS: IBUPROFEN 400 MG TABLET PO PRN
[2020-07-09] MEDS: LURASIDONE HCL 60 MG TABLET PO SCH (07:03)
[2020-07-09 08:50] VITALS: BP 124/78
[2020-07-09] MEDS: GABAPENTIN 100 MG CAPSULE PO SCH (09:00)
[2020-07-09] MEDS: POLYETHYLENE GLYCOL 3350 17 GM PACKET PO SCH (09:46)
[2020-07-09] MEDS: FUROSEMIDE 40 MG TABLET PO SCH (09:48)
[2020-07-09] MEDS: SERTRALINE HCL 100 MG TABLET PO SCH (09:48)
[2020-07-09] MEDS: METOPROLOL SUCCINATE 25 MG ER TABLET PO SCH (09:48)
[2020-07-09 16:28] VITALS: BP 154/76
[2020-07-09 16:31] VITALS: BP 154/76
[2020-07-09] MEDS: RIVAROXABAN 20 MG TABLET PO SCH (16:36)
[2020-07-09] MEDS: ACETAMINOPHEN 325 MG TABLET PO PRN (20:37)
[2020-07-10] MEDS: LURASIDONE HCL 60 MG TABLET PO SCH (06:34)
[2020-07-10] MEDS: FUROSEMIDE 40 MG TABLET PO SCH (08:20)
[2020-07-10] MEDS: SERTRALINE HCL 100 MG TABLET PO SCH (08:21)
[2020-07-10] MEDS: METOPROLOL SUCCINATE 25 MG ER TABLET PO SCH (08:21)
[2020-07-10] MEDS: POLYETHYLENE GLYCOL 3350 17 GM PACKET PO SCH (08:21)
[2020-07-10 08:31] VITALS: BP 134/71
[2020-07-10 16:00] VITALS: BP 142/65
[2020-07-10] MEDS: RIVAROXABAN 20 MG TABLET PO SCH (17:29)
[2020-07-10] MEDS: IBUPROFEN 400 MG TABLET PO PRN (20:47)
[2020-07-11] MEDS: LURASIDONE HCL 60 MG TABLET PO SCH (07:02)
[2020-07-11] MEDS: FUROSEMIDE 40 MG TABLET PO SCH (08:21)
[2020-07-11] MEDS: SERTRALINE HCL 100 MG TABLET PO SCH (08:21)
[2020-07-11] MEDS: POLYETHYLENE GLYCOL 3350 17 GM PACKET PO SCH (08:22)
[2020-07-11] MEDS: GABAPENTIN 100 MG CAPSULE PO SCH ×2 (08:22→08:23)
[2020-07-11] MEDS: METOPROLOL SUCCINATE 25 MG ER TABLET PO SCH (08:22)
[2020-07-11 08:42] VITALS: BP 155/103
[2020-07-11 16:37] VITALS: BP 137/101
[2020-07-11] MEDS: RIVAROXABAN 20 MG TABLET PO SCH (16:48)
[2020-07-12 00:45] VITALS: BP 132/83
[2020-07-12] MEDS: LURASIDONE HCL 60 MG TABLET PO SCH (06:51)
[2020-07-12 08:14] VITALS: BP 146/95
[2020-07-12] MEDS: METOPROLOL SUCCINATE 25 MG ER TABLET PO SCH (09:50)
[2020-07-12] MEDS: SERTRALINE HCL 100 MG TABLET PO SCH (09:50)
[2020-07-12] MEDS: GABAPENTIN 100 MG CAPSULE PO SCH (09:50)
[2020-07-12] MEDS: POLYETHYLENE GLYCOL 3350 17 GM PACKET PO SCH (09:51)
[2020-07-12] MEDS: FUROSEMIDE 40 MG TABLET PO SCH (10:16)
[2020-07-12 12:14] LABS: COVID AG,FIA SOURCE NASOPHARYNGEAL
[2020-07-12 16:10] VITALS: BP 105/70
[2020-07-12] MEDS: RIVAROXABAN 20 MG TABLET PO SCH (16:39)
[2020-07-13] MEDS: LURASIDONE HCL 60 MG TABLET PO SCH (06:35)
[2020-07-13 08:02] VITALS: BP 143/100
[2020-07-13] MEDS: POLYETHYLENE GLYCOL 3350 17 GM PACKET PO SCH (08:09)
[2020-07-13] MEDS: FUROSEMIDE 40 MG TABLET PO SCH (08:09)
[2020-07-13] MEDS: METOPROLOL SUCCINATE 25 MG ER TABLET PO SCH (08:09)
[2020-07-13] MEDS: GABAPENTIN 100 MG CAPSULE PO SCH ×2 (08:10→08:18)
[2020-07-13] MEDS ORDERED: SERTRALINE HCL 100 MG TABLET PO SCH (09:00)
[2020-07-13 16:03] VITALS: BP 121/79
[2020-07-13 16:58] LABS: COVID AG,FIA SOURCE NASOPHARYNGEAL
[2020-07-13] MEDS: RIVAROXABAN 20 MG TABLET PO SCH (17:35)
== END 2020-07-13 18:39 | disposition short-term general hospital (02) | DRG 750 ==
LOC: 3EI 14:00
PROC: 5A09357 Assistance with Respiratory Ventilation, Less than 24 Consecutive Hours, Continuous Positive Airway Pressure (ICD-10-PCS; principal; 2020-06-23)
DX: F25.1 Schizoaffective disorder, depressive type (principal); E66.01 Morbid (severe) obesity due to excess calories; E78.5 Hyperlipidemia, unspecified; F31.9 Bipolar disorder, unspecified; G47.33 Obstructive sleep apnea (adult) (pediatric); I11.0 Hypertensive heart disease with heart failure; I50.9 Heart failure, unspecified; J45.909 Unspecified asthma, uncomplicated; K21.9 Gastro-esophageal reflux disease without esophagitis; R45.851 Suicidal ideations; U07.1 COVID-19; Z91.5 Personal history of self-harm; Z91.19 Patient's noncompliance with other medical treatment and regimen; Z68.43 Body mass index [BMI] 50.0-59.9, adult; Z79.899 Other long term (current) drug therapy
CPT/HCPCS: 87081; 87426; 93005; 94660; J3535

== ENCOUNTER 2020-09-18 16:57 | Inpatient (IN) | payer MEDICAID, OTHER ==
[~2020-09-18] VITALS: Ht 177.8 cm; Wt 211.4 kg
[~2020-09-18 16:57] MED LIST changes: +ACET-784 PO; +ALBU8HFA IH; +FURO20 PO; -FURO40 PO; +GABA-1216 PO; +LACT30L PO; -LISI-662 PO; +LURA60TA PO; +METO-558 PO; -METO100T14 PO; +POLY17PO47 PO; -QUET50TA PO; +SERT-162 PO
[2020-09-18 20:07] LABS: COVID AG,FIA SOURCE NASOPHARYNGEAL
[2020-09-18 20:08] LABS: BASOPHILS % (AUTO) 0.7 % (0.0-2.0); EOSINOPHILS % (AUTO) 0.4 % (1.0-6.0); HEMOGLOBIN 15.3 g/dL (13.5-17.5); LYMPHOCYTES # (AUTO) 1.9 K/uL (1.0-4.8); LYMPHOCYTES % (AUTO) 17.2 % (22.0-44.0); MEAN CORPUSCULAR HEMOGLOBIN 31.1 pg (26.0-34.0); MEAN CORPUSCULAR HGB CONC 34.7 G/dL (31.0-37.0); MEAN CORPUSCULAR VOLUME 90 fL (80-100); MONOCYTES # (AUTO) 0.9 K/uL (0.1-1.0); MONOCYTES % (AUTO) 7.5 % (2.0-9.0); NEUTROPHILS # (AUTO) 8.4 K/uL (1.8-7.7); NEUTROPHILS % (AUTO) 74.2 % (40.0-70.0); PLATELET COUNT (AUTO) 230 K/uL (150-450); RED BLOOD CELL COUNT(AUTO) 4.91 MIL/uL (4.50-5.90); RED CELL DISTRIBUTION WIDTH 14.7 % (11.5-14.5)
[2020-09-18] MEDS ORDERED: LORazepam 2 MG TABLET PO PRN (20:15)
[2020-09-18] MEDS ORDERED: ZOLPIDEM TARTRATE 10 MG TABLET PO PRN (20:15)
[2020-09-18] MEDS ORDERED: OLANZapine 5 MG RAPDIS TABLET PO PRN (20:15)
[2020-09-18 20:21] LABS: ANION GAP 8 mmol/L (8-16); CALCIUM, TOTAL 9.6 mg/dL (8.8-10.5); CARBON DIOXIDE 32 mmol/L (22-29); CHLORIDE 100 mmol/L (98-107); CREATININE 0.82 mg/dL (0.60-1.30); GLOMERULAR FILTR. RATE CALC > 60 mL/min (>60); GLUCOSE,RANDOM 72 mg/dL (70-110); SODIUM SERUM 140 mmol/L (136-145); UREA NITROGEN, BLOOD 14 mg/dL (7-18)
[2020-09-18 20:26] LABS: ALANINE AMINOTRANSFERASE 92 U/L (12-78); ALBUMIN 3.6 g/dL (3.4-5.0); ALKALINE PHOSPHATASE 59 U/L (46-116); ASPARTATE AMINOTRANSFERASE 24 U/L (15-37); BILIRUBIN,TOTAL 0.3 mg/dL (0.1-1.0); TOTAL PROTEIN, SERUM 8.8 g/dL (6.4-8.2)
[2020-09-18 20:41] LABS: APPEARANCE,URINE CLEAR (CLEAR); BILIRUBIN,URINE NEGATIVE (NEGATIVE); GLUCOSE, URINE (UA) NEGATIVE (NEGATIVE); KETONES,URINE NEGATIVE (NEGATIVE); LEUKOCYTE ESTERASE ,URINE NEGATIVE (NEGATIVE); NITRATE,URINE NEGATIVE (NEGATIVE); OCCULT BLOOD,URINE NEGATIVE (NEGATIVE); PH,URINE 8.5 (5.0-8.0); PROTEIN,URINE NEGATIVE (NEGATIVE); UROBILINOGEN,URINE 0.2 mg/dL (<=1.0)
[2020-09-18 21:23] LABS: AMPHET/METH SCREEN,URINE NEGATIVE (NEGATIVE); BARBITURATE SCREEN, URINE NEGATIVE (NEGATIVE); BENZODIAZEPINES SCREEN,URINE NEGATIVE (NEGATIVE); CANNABINOID SCREEN,URINE NEGATIVE (NEGATIVE); COCAINE SCREEN,URINE NEGATIVE (NEGATIVE); METHADONE SCREEN, URINE NEGATIVE (NEGATIVE); OPIATE SCREEN,URINE NEGATIVE (NEGATIVE)
[2020-09-18 21:24] LABS: PHENCYCLIDINE SCREEN,URINE NEGATIVE (NEGATIVE)
[2020-09-19 00:15] VITALS: BP 145/103
[2020-09-19 06:12] LABS: CHOL/HDL RATIO 3.8 (4.2-7.3)
[2020-09-19 09:47] VITALS: BP 148/97
[2020-09-19 16:24] VITALS: BP 133/80
[2020-09-19] MEDS ORDERED: MAG HYDROX/AL HYDROX/SIMETH ES 30 ML SUSPENSION UDCUP PO PRN (18:45)
[2020-09-19] MEDS ORDERED: LURASIDONE HCL 20 MG TABLET PO PRN (18:45)
[2020-09-19] MEDS ORDERED: LOPERAMIDE HCL 2 MG CAPSULE PO PRN (18:45)
[2020-09-19] MEDS ORDERED: GuaiFENesin/D-METHORPHAN [SUGAR-FREE] 200-20MG/10 ML SYRUP UDCUP PO PRN (18:45)
[2020-09-19] MEDS ORDERED: HydrOXYzine PAMOATE 50 MG CAPSULE PO PRN (18:45)
[2020-09-19] MEDS ORDERED: PROMETHAZINE HCL 25 MG TABLET PO PRN (18:45)
[2020-09-19] MEDS ORDERED: TUBERCULIN, PURIFIED PROTEIN DERIVATIVE 5 TU/0.1 ML SYRINGE ID ONE (18:45)
[2020-09-19] MEDS ORDERED: MAGNESIUM HYDROXIDE SUSPENSION 30 ML UDCUP PO PRN (18:45)
[2020-09-19] MEDS: MELATONIN 5 MG TABLET PO SCH (20:59)
[2020-09-20] MEDS: LURASIDONE HCL 60 MG TABLET PO SCH (06:57)
[2020-09-20 07:03] LABS: HEMOGLOBIN A1C 5.7 % (3.8-5.6)
[2020-09-20 07:18] LABS: CHOL/HDL RATIO 3.8 (4.2-7.3); FREE T4 (FREE THYROXINE) 1.23 ng/dL (0.76-1.46); THYROID STIMULATING HORMONE 1.53 uIU/mL (0.36-3.74)
[2020-09-20 08:15] VITALS: BP 150/112
[2020-09-20] MEDS: SERTRALINE HCL 100 MG TABLET PO SCH (09:56)
[2020-09-20] MEDS: THIAMINE 100 MG TABLET PO SCH ×2 (09:56→17:57)
[2020-09-20] MEDS: FOLIC ACID 1 MG TABLET PO SCH (09:56)
[2020-09-20] MEDS: MULTIVITAMINS WITH MINERALS, THERAPEUTIC TABLET PO SCH (09:56)
[2020-09-20] MEDS: OMEGA-3/DHA/EPA/FISH OIL 1,000 MG CAPSULE PO SCH (09:56)
[2020-09-20] MEDS: NALTREXONE HCL 50 MG TABLET PO SCH (09:56)
[2020-09-20 16:34] VITALS: BP 123/73
[2020-09-20 16:36] VITALS: BP 123/73
[2020-09-20] MEDS: MELATONIN 5 MG TABLET PO SCH (21:32)
[2020-09-21] MEDS: LURASIDONE HCL 60 MG TABLET PO SCH (06:42)
[2020-09-21] MEDS: NALTREXONE HCL 50 MG TABLET PO SCH (09:22)
[2020-09-21] MEDS: OMEGA-3/DHA/EPA/FISH OIL 1,000 MG CAPSULE PO SCH (09:22)
[2020-09-21] MEDS: FOLIC ACID 1 MG TABLET PO SCH (09:22)
[2020-09-21] MEDS: THIAMINE 100 MG TABLET PO SCH ×2 (09:22→16:53)
[2020-09-21] MEDS: MULTIVITAMINS WITH MINERALS, THERAPEUTIC TABLET PO SCH (09:22)
[2020-09-21] MEDS: SERTRALINE HCL 100 MG TABLET PO SCH (09:22)
[2020-09-21] MEDS: MUPIROCIN CALCIUM 2% 22 GM OINTMENT NASAL SCH ×2 (09:23→16:52)
[2020-09-21 10:08] VITALS: BP 150/80
[2020-09-21 20:11] VITALS: BP 133/78
[2020-09-21] MEDS: MELATONIN 5 MG TABLET PO SCH (20:13)
[2020-09-22] MEDS: LURASIDONE HCL 60 MG TABLET PO SCH (06:52)
[2020-09-22] MEDS: OMEGA-3/DHA/EPA/FISH OIL 1,000 MG CAPSULE PO SCH (08:04)
[2020-09-22] MEDS: NALTREXONE HCL 50 MG TABLET PO SCH (08:04)
[2020-09-22] MEDS: THIAMINE 100 MG TABLET PO SCH ×2 (08:04→16:59)
[2020-09-22] MEDS: MUPIROCIN CALCIUM 2% 22 GM OINTMENT NASAL SCH ×2 (08:04→17:00)
[2020-09-22] MEDS: FOLIC ACID 1 MG TABLET PO SCH (08:04)
[2020-09-22] MEDS: MULTIVITAMINS WITH MINERALS, THERAPEUTIC TABLET PO SCH (08:04)
[2020-09-22] MEDS: SERTRALINE HCL 100 MG TABLET PO SCH (08:04)
[2020-09-22 10:28] VITALS: BP 128/83
[2020-09-22] MEDS ORDERED: ONDANSETRON HCL 4 MG TABLET PO PRN (17:15)
[2020-09-22] MEDS: RIVAROXABAN 20 MG TABLET PO SCH (17:47)
[2020-09-22 18:22] VITALS: BP 123/75
[2020-09-22] MEDS: MELATONIN 5 MG TABLET PO SCH (21:06)
[2020-09-23] MEDS: LURASIDONE HCL 40 MG TABLET PO SCH (06:51)
[2020-09-23] MEDS: POLYETHYLENE GLYCOL 3350 17 GM PACKET PO SCH (09:00)
[2020-09-23] MEDS ORDERED: GABAPENTIN 100 MG CAPSULE PO SCH (09:00)
[2020-09-23] MEDS: MUPIROCIN CALCIUM 2% 22 GM OINTMENT NASAL SCH ×2 (09:00→16:42)
[2020-09-23] MEDS: THIAMINE 100 MG TABLET PO SCH ×2 (09:01→16:41)
[2020-09-23] MEDS: FUROSEMIDE 20 MG TABLET PO SCH ×2 (09:01→16:41)
[2020-09-23] MEDS: MULTIVITAMINS WITH MINERALS, THERAPEUTIC TABLET PO SCH (09:01)
[2020-09-23] MEDS: SERTRALINE HCL 100 MG TABLET PO SCH (09:01)
[2020-09-23] MEDS: NALTREXONE HCL 50 MG TABLET PO SCH (09:01)
[2020-09-23] MEDS: METOPROLOL SUCCINATE 50 MG ER TABLET PO SCH (09:01)
[2020-09-23] MEDS: FOLIC ACID 1 MG TABLET PO SCH (09:01)
[2020-09-23] MEDS: OMEGA-3/DHA/EPA/FISH OIL 1,000 MG CAPSULE PO SCH (09:01)
[2020-09-23 09:49] VITALS: BP 128/67
[2020-09-23 16:00] VITALS: BP 132/73
[2020-09-23] MEDS: RIVAROXABAN 20 MG TABLET PO SCH (16:41)
[2020-09-23] MEDS: MELATONIN 5 MG TABLET PO SCH (20:52)
[2020-09-24] MEDS: LURASIDONE HCL 40 MG TABLET PO SCH (06:53)
[2020-09-24 09:15] VITALS: BP 119/80
[2020-09-24] MEDS: NALTREXONE HCL 50 MG TABLET PO SCH (10:02)
[2020-09-24] MEDS: FOLIC ACID 1 MG TABLET PO SCH (10:02)
[2020-09-24] MEDS: METOPROLOL SUCCINATE 50 MG ER TABLET PO SCH (10:03)
[2020-09-24] MEDS: SERTRALINE HCL 100 MG TABLET PO SCH (10:03)
[2020-09-24] MEDS: THIAMINE 100 MG TABLET PO SCH ×2 (10:03→17:00)
[2020-09-24] MEDS: OMEGA-3/DHA/EPA/FISH OIL 1,000 MG CAPSULE PO SCH (10:04)
[2020-09-24] MEDS: MULTIVITAMINS WITH MINERALS, THERAPEUTIC TABLET PO SCH (10:04)
[2020-09-24] MEDS: POLYETHYLENE GLYCOL 3350 17 GM PACKET PO SCH (10:04)
[2020-09-24] MEDS: MUPIROCIN CALCIUM 2% 22 GM OINTMENT NASAL SCH ×2 (10:04→17:00)
[2020-09-24] MEDS: FUROSEMIDE 20 MG TABLET PO SCH ×2 (10:12→17:00)
[2020-09-24 16:00] VITALS: BP 153/79
[2020-09-24] MEDS: RIVAROXABAN 20 MG TABLET PO SCH (17:01)
[2020-09-24 20:17] VITALS: BP 143/79
[2020-09-24] MEDS: MELATONIN 5 MG TABLET PO SCH (21:34)
[2020-09-24] MEDS: LACTULOSE 20 GM/30 ML SOLUTION UDCUP PO PRN (21:52)
[2020-09-25 03:30] VITALS: BP 144/106
[2020-09-25] MEDS: LURASIDONE HCL 60 MG TABLET PO SCH (07:04)
[2020-09-25] MEDS: LURASIDONE HCL 80 MG TABLET PO SCH (07:05)
[2020-09-25] MEDS: SERTRALINE HCL 100 MG TABLET PO SCH (08:59)
[2020-09-25] MEDS: NALTREXONE HCL 50 MG TABLET PO SCH (09:00)
[2020-09-25] MEDS: METOPROLOL SUCCINATE 50 MG ER TABLET PO SCH (09:00)
[2020-09-25] MEDS: THIAMINE 100 MG TABLET PO SCH ×2 (09:00→17:01)
[2020-09-25] MEDS: MULTIVITAMINS WITH MINERALS, THERAPEUTIC TABLET PO SCH (09:00)
[2020-09-25] MEDS: OMEGA-3/DHA/EPA/FISH OIL 1,000 MG CAPSULE PO SCH (09:00)
[2020-09-25] MEDS: FUROSEMIDE 20 MG TABLET PO SCH ×2 (09:00→17:01)
[2020-09-25] MEDS: FOLIC ACID 1 MG TABLET PO SCH (09:00)
[2020-09-25] MEDS: MUPIROCIN CALCIUM 2% 22 GM OINTMENT NASAL SCH ×2 (09:01→17:01)
[2020-09-25] MEDS: POLYETHYLENE GLYCOL 3350 17 GM PACKET PO SCH (09:01)
[2020-09-25] MEDS: RIVAROXABAN 20 MG TABLET PO SCH (17:01)
[2020-09-25 17:53] VITALS: BP 114/68
[2020-09-25] MEDS: MELATONIN 5 MG TABLET PO SCH (20:42)
[2020-09-26] MEDS: LURASIDONE HCL 60 MG TABLET PO SCH (06:35)
[2020-09-26] MEDS: LURASIDONE HCL 80 MG TABLET PO SCH (06:35)
[2020-09-26] MEDS: POLYETHYLENE GLYCOL 3350 17 GM PACKET PO SCH (08:41)
[2020-09-26] MEDS: MUPIROCIN CALCIUM 2% 22 GM OINTMENT NASAL SCH ×2 (08:41→16:07)
[2020-09-26] MEDS: NALTREXONE HCL 50 MG TABLET PO SCH (08:42)
[2020-09-26] MEDS: FUROSEMIDE 20 MG TABLET PO SCH ×2 (08:42→16:07)
[2020-09-26] MEDS: THIAMINE 100 MG TABLET PO SCH ×2 (08:42→16:07)
[2020-09-26] MEDS: SERTRALINE HCL 100 MG TABLET PO SCH (08:42)
[2020-09-26] MEDS: OMEGA-3/DHA/EPA/FISH OIL 1,000 MG CAPSULE PO SCH (08:42)
[2020-09-26] MEDS: METOPROLOL SUCCINATE 50 MG ER TABLET PO SCH (08:42)
[2020-09-26] MEDS: MULTIVITAMINS WITH MINERALS, THERAPEUTIC TABLET PO SCH (08:42)
[2020-09-26] MEDS: FOLIC ACID 1 MG TABLET PO SCH (08:42)
[2020-09-26 10:44] VITALS: BP 131/81
[2020-09-26] MEDS: RIVAROXABAN 20 MG TABLET PO SCH (16:43)
[2020-09-26 18:44] VITALS: BP 144/71
[2020-09-26] MEDS: MELATONIN 5 MG TABLET PO SCH (20:36)
[2020-09-27] MEDS: LURASIDONE HCL 80 MG TABLET PO SCH (06:41)
[2020-09-27] MEDS ORDERED: LURASIDONE HCL 40 MG TABLET PO SCH (07:30)
[2020-09-27 09:15] VITALS: BP 121/80
[2020-09-27] MEDS: METOPROLOL SUCCINATE 50 MG ER TABLET PO SCH (10:16)
[2020-09-27] MEDS: OMEGA-3/DHA/EPA/FISH OIL 1,000 MG CAPSULE PO SCH (10:16)
[2020-09-27] MEDS: THIAMINE 100 MG TABLET PO SCH ×2 (10:16→16:41)
[2020-09-27] MEDS: FOLIC ACID 1 MG TABLET PO SCH (10:16)
[2020-09-27] MEDS: SERTRALINE HCL 100 MG TABLET PO SCH (10:16)
[2020-09-27] MEDS: FUROSEMIDE 20 MG TABLET PO SCH ×2 (10:16→16:41)
[2020-09-27] MEDS: NALTREXONE HCL 50 MG TABLET PO SCH (10:16)
[2020-09-27] MEDS: MULTIVITAMINS WITH MINERALS, THERAPEUTIC TABLET PO SCH (10:16)
[2020-09-27] MEDS: POLYETHYLENE GLYCOL 3350 17 GM PACKET PO SCH (10:18)
[2020-09-27] MEDS: MUPIROCIN CALCIUM 2% 22 GM OINTMENT NASAL SCH ×2 (10:21→16:42)
[2020-09-27 16:00] VITALS: BP 130/67
[2020-09-27] MEDS: RIVAROXABAN 20 MG TABLET PO SCH (16:41)
[2020-09-27] MEDS: MELATONIN 5 MG TABLET PO SCH (20:29)
[2020-09-27] MEDS: ACETAMINOPHEN 325 MG TABLET PO PRN (21:12)
[2020-09-27] MEDS: ALBUTEROL SULFATE HFA 90 MCG/PUFF 8 GM INHALER IH PRN (22:25)
[2020-09-28] MEDS: LURASIDONE HCL 80 MG TABLET PO SCH (07:13)
[2020-09-28] MEDS: NALTREXONE HCL 50 MG TABLET PO SCH ×2 (09:00→10:25)
[2020-09-28] MEDS: MUPIROCIN CALCIUM 2% 22 GM OINTMENT NASAL SCH ×2 (09:16→16:06)
[2020-09-28] MEDS: POLYETHYLENE GLYCOL 3350 17 GM PACKET PO SCH (09:17)
[2020-09-28] MEDS: METOPROLOL SUCCINATE 50 MG ER TABLET PO SCH (09:18)
[2020-09-28] MEDS: FUROSEMIDE 20 MG TABLET PO SCH ×2 (09:18→16:06)
[2020-09-28] MEDS: SERTRALINE HCL 100 MG TABLET PO SCH (09:18)
[2020-09-28] MEDS: FOLIC ACID 1 MG TABLET PO SCH (09:18)
[2020-09-28] MEDS: THIAMINE 100 MG TABLET PO SCH ×2 (09:18→16:06)
[2020-09-28] MEDS: OMEGA-3/DHA/EPA/FISH OIL 1,000 MG CAPSULE PO SCH (09:18)
[2020-09-28] MEDS: MULTIVITAMINS WITH MINERALS, THERAPEUTIC TABLET PO SCH (09:18)
[2020-09-28 16:13] VITALS: BP 131/92
[2020-09-28] MEDS: RIVAROXABAN 20 MG TABLET PO SCH (16:48)
[2020-09-28] MEDS: MELATONIN 5 MG TABLET PO SCH (21:20)
[2020-09-28] MEDS: ALBUTEROL SULFATE HFA 90 MCG/PUFF 8 GM INHALER IH PRN (23:53)
[2020-09-29] MEDS: LURASIDONE HCL 80 MG TABLET PO SCH (06:35)
[2020-09-29] MEDS: NALTREXONE HCL 50 MG TABLET PO SCH (09:00)
[2020-09-29] MEDS: MULTIVITAMINS WITH MINERALS, THERAPEUTIC TABLET PO SCH (09:26)
[2020-09-29] MEDS: THIAMINE 100 MG TABLET PO SCH ×2 (09:26→16:44)
[2020-09-29] MEDS: FOLIC ACID 1 MG TABLET PO SCH (09:26)
[2020-09-29] MEDS: FUROSEMIDE 20 MG TABLET PO SCH ×2 (09:26→16:44)
[2020-09-29] MEDS: SERTRALINE HCL 100 MG TABLET PO SCH (09:26)
[2020-09-29] MEDS: MUPIROCIN CALCIUM 2% 22 GM OINTMENT NASAL SCH ×2 (09:27→16:42)
[2020-09-29] MEDS: METOPROLOL SUCCINATE 50 MG ER TABLET PO SCH (09:27)
[2020-09-29] MEDS: OMEGA-3/DHA/EPA/FISH OIL 1,000 MG CAPSULE PO SCH (09:27)
[2020-09-29 09:31] VITALS: BP 151/106
[2020-09-29] MEDS: POLYETHYLENE GLYCOL 3350 17 GM PACKET PO SCH (09:32)
[2020-09-29] MEDS: RIVAROXABAN 20 MG TABLET PO SCH (16:44)
[2020-09-29 19:23] VITALS: BP 146/98
[2020-09-29] MEDS: MELATONIN 5 MG TABLET PO SCH (21:33)
[2020-09-30] MEDS: LURASIDONE HCL 80 MG TABLET PO SCH (06:55)
[2020-09-30] MEDS: MUPIROCIN CALCIUM 2% 22 GM OINTMENT NASAL SCH ×2 (08:34→16:39)
[2020-09-30] MEDS: OMEGA-3/DHA/EPA/FISH OIL 1,000 MG CAPSULE PO SCH (08:35)
[2020-09-30] MEDS: SERTRALINE HCL 100 MG TABLET PO SCH (08:35)
[2020-09-30] MEDS: FUROSEMIDE 20 MG TABLET PO SCH ×2 (08:35→16:40)
[2020-09-30] MEDS: NALTREXONE HCL 50 MG TABLET PO SCH (08:35)
[2020-09-30] MEDS: METOPROLOL SUCCINATE 50 MG ER TABLET PO SCH (08:35)
[2020-09-30] MEDS: MULTIVITAMINS WITH MINERALS, THERAPEUTIC TABLET PO SCH (08:35)
[2020-09-30] MEDS: POLYETHYLENE GLYCOL 3350 17 GM PACKET PO SCH (09:00)
[2020-09-30 10:02] VITALS: BP 133/90
[2020-09-30] MEDS: RIVAROXABAN 20 MG TABLET PO SCH (16:40)
[2020-09-30] MEDS: MELATONIN 5 MG TABLET PO SCH (20:02)
[2020-10-01] MEDS: LURASIDONE HCL 80 MG TABLET PO SCH (07:08)
[2020-10-01 08:44] VITALS: BP 139/91
[2020-10-01] MEDS: OMEGA-3/DHA/EPA/FISH OIL 1,000 MG CAPSULE PO SCH (08:49)
[2020-10-01] MEDS: METOPROLOL SUCCINATE 50 MG ER TABLET PO SCH (08:50)
[2020-10-01] MEDS: FUROSEMIDE 20 MG TABLET PO SCH ×2 (08:50→16:17)
[2020-10-01] MEDS: SERTRALINE HCL 100 MG TABLET PO SCH (08:50)
[2020-10-01] MEDS: MULTIVITAMINS WITH MINERALS, THERAPEUTIC TABLET PO SCH (08:50)
[2020-10-01] MEDS: POLYETHYLENE GLYCOL 3350 17 GM PACKET PO SCH (08:51)
[2020-10-01] MEDS: MUPIROCIN CALCIUM 2% 22 GM OINTMENT NASAL SCH ×2 (08:51→16:14)
[2020-10-01] MEDS: NALTREXONE HCL 50 MG TABLET PO SCH (08:57)
[2020-10-01 16:23] VITALS: BP 153/102
[2020-10-01] MEDS: RIVAROXABAN 20 MG TABLET PO SCH (17:30)
[2020-10-01] MEDS: MELATONIN 5 MG TABLET PO SCH (20:14)
[2020-10-02] MEDS: LURASIDONE HCL 80 MG TABLET PO SCH (06:36)
[2020-10-02 08:00] VITALS: BP 128/84
[2020-10-02] MEDS: NALTREXONE HCL 50 MG TABLET PO SCH (09:00)
[2020-10-02] MEDS: OMEGA-3/DHA/EPA/FISH OIL 1,000 MG CAPSULE PO SCH (09:53)
[2020-10-02] MEDS: METOPROLOL SUCCINATE 50 MG ER TABLET PO SCH (09:53)
[2020-10-02] MEDS: MULTIVITAMINS WITH MINERALS, THERAPEUTIC TABLET PO SCH (09:53)
[2020-10-02] MEDS: FUROSEMIDE 20 MG TABLET PO SCH ×2 (09:53→17:29)
[2020-10-02] MEDS: SERTRALINE HCL 100 MG TABLET PO SCH (09:53)
[2020-10-02] MEDS: POLYETHYLENE GLYCOL 3350 17 GM PACKET PO SCH (09:54)
[2020-10-02] MEDS: MUPIROCIN CALCIUM 2% 22 GM OINTMENT NASAL SCH ×2 (09:57→17:29)
[2020-10-02 16:44] VITALS: BP 118/68
[2020-10-02] MEDS: RIVAROXABAN 20 MG TABLET PO SCH (17:29)
[2020-10-02] MEDS: MELATONIN 5 MG TABLET PO SCH (21:02)
[2020-10-03] MEDS: LURASIDONE HCL 80 MG TABLET PO SCH (06:40)
[2020-10-03] MEDS: MUPIROCIN CALCIUM 2% 22 GM OINTMENT NASAL SCH ×2 (08:17→16:52)
[2020-10-03] MEDS: METOPROLOL SUCCINATE 50 MG ER TABLET PO SCH (08:18)
[2020-10-03] MEDS: FUROSEMIDE 20 MG TABLET PO SCH ×2 (08:18→16:52)
[2020-10-03] MEDS: OMEGA-3/DHA/EPA/FISH OIL 1,000 MG CAPSULE PO SCH (08:18)
[2020-10-03] MEDS: MULTIVITAMINS WITH MINERALS, THERAPEUTIC TABLET PO SCH (08:18)
[2020-10-03] MEDS: SERTRALINE HCL 100 MG TABLET PO SCH (08:18)
[2020-10-03] MEDS: POLYETHYLENE GLYCOL 3350 17 GM PACKET PO SCH (08:18)
[2020-10-03] MEDS: NALTREXONE HCL 50 MG TABLET PO SCH (08:27)
[2020-10-03 16:00] VITALS: BP 120/91
[2020-10-03] MEDS: RIVAROXABAN 20 MG TABLET PO SCH (16:52)
[2020-10-03] MEDS: ACETAMINOPHEN 325 MG TABLET PO PRN (19:29)
[2020-10-03] MEDS: FLUTICASONE/VILANTEROL 100-25 MCG/INH INHALER [14] IH SCH (20:46)
[2020-10-03] MEDS: MELATONIN 5 MG TABLET PO SCH (20:46)
[2020-10-04] MEDS ORDERED: LURASIDONE HCL 40 MG TABLET PO ONE (07:30)
[2020-10-04] MEDS: LURASIDONE HCL 80 MG TABLET PO SCH (07:30)
[2020-10-04 08:00] VITALS: BP 123/89
[2020-10-04] MEDS: FUROSEMIDE 20 MG TABLET PO SCH ×2 (09:32→16:46)
[2020-10-04] MEDS: OMEGA-3/DHA/EPA/FISH OIL 1,000 MG CAPSULE PO SCH (09:32)
[2020-10-04] MEDS: MULTIVITAMINS WITH MINERALS, THERAPEUTIC TABLET PO SCH (09:32)
[2020-10-04] MEDS: NALTREXONE HCL 50 MG TABLET PO SCH (09:32)
[2020-10-04] MEDS: SERTRALINE HCL 100 MG TABLET PO SCH (09:32)
[2020-10-04] MEDS: METOPROLOL SUCCINATE 50 MG ER TABLET PO SCH (09:33)
[2020-10-04] MEDS: MUPIROCIN CALCIUM 2% 22 GM OINTMENT NASAL SCH ×2 (09:33→16:46)
[2020-10-04] MEDS: FLUTICASONE/VILANTEROL 100-25 MCG/INH INHALER [14] IH SCH (09:33)
[2020-10-04] MEDS: POLYETHYLENE GLYCOL 3350 17 GM PACKET PO SCH (09:33)
[2020-10-04 16:00] VITALS: BP 141/91
[2020-10-04] MEDS: RIVAROXABAN 20 MG TABLET PO SCH (16:46)
[2020-10-04] MEDS: MELATONIN 5 MG TABLET PO SCH (21:00)
[2020-10-05 05:14] VITALS: BP 119/71
[2020-10-05] MEDS: LURASIDONE HCL 80 MG TABLET PO SCH (06:42)
[2020-10-05] MEDS: SERTRALINE HCL 100 MG TABLET PO SCH (08:43)
[2020-10-05] MEDS: NALTREXONE HCL 50 MG TABLET PO SCH (08:43)
[2020-10-05] MEDS: METOPROLOL SUCCINATE 25 MG ER TABLET PO SCH (08:43)
[2020-10-05] MEDS: OMEGA-3/DHA/EPA/FISH OIL 1,000 MG CAPSULE PO SCH (08:43)
[2020-10-05] MEDS: FLUTICASONE/VILANTEROL 100-25 MCG/INH INHALER [14] IH SCH (08:43)
[2020-10-05] MEDS: POLYETHYLENE GLYCOL 3350 17 GM PACKET PO SCH (08:43)
[2020-10-05] MEDS: FUROSEMIDE 20 MG TABLET PO SCH ×2 (08:43→17:04)
[2020-10-05] MEDS: MULTIVITAMINS WITH MINERALS, THERAPEUTIC TABLET PO SCH (08:43)
[2020-10-05 09:01] VITALS: BP 123/53
[2020-10-05] MEDS: RIVAROXABAN 20 MG TABLET PO SCH (17:04)
[2020-10-05 17:55] VITALS: BP 126/84
[2020-10-05] MEDS: MELATONIN 5 MG TABLET PO SCH (20:37)
[2020-10-06 04:03] VITALS: BP 123/73
[2020-10-06] MEDS: LURASIDONE HCL 80 MG TABLET PO SCH (06:50)
[2020-10-06] MEDS: OMEGA-3/DHA/EPA/FISH OIL 1,000 MG CAPSULE PO SCH (08:54)
[2020-10-06] MEDS: METOPROLOL SUCCINATE 25 MG ER TABLET PO SCH (08:54)
[2020-10-06] MEDS: MULTIVITAMINS WITH MINERALS, THERAPEUTIC TABLET PO SCH (08:55)
[2020-10-06] MEDS: FUROSEMIDE 20 MG TABLET PO SCH ×2 (08:55→16:22)
[2020-10-06] MEDS: SERTRALINE HCL 100 MG TABLET PO SCH (08:55)
[2020-10-06] MEDS: FLUTICASONE/VILANTEROL 100-25 MCG/INH INHALER [14] IH SCH (09:00)
[2020-10-06] MEDS: NALTREXONE HCL 50 MG TABLET PO SCH (09:00)
[2020-10-06] MEDS: POLYETHYLENE GLYCOL 3350 17 GM PACKET PO SCH (09:00)
[2020-10-06 10:27] VITALS: BP 135/93
[2020-10-06] MEDS: RIVAROXABAN 20 MG TABLET PO SCH (16:22)
[2020-10-06 18:58] VITALS: BP 130/95
[2020-10-06] MEDS: MELATONIN 5 MG TABLET PO SCH (20:40)
[2020-10-07] MEDS: LURASIDONE HCL 80 MG TABLET PO SCH (06:40)
[2020-10-07] MEDS: POLYETHYLENE GLYCOL 3350 17 GM PACKET PO SCH (09:00)
[2020-10-07] MEDS: NALTREXONE HCL 50 MG TABLET PO SCH (09:00)
[2020-10-07] MEDS: FLUTICASONE/VILANTEROL 100-25 MCG/INH INHALER [14] IH SCH (09:00)
[2020-10-07] MEDS: OMEGA-3/DHA/EPA/FISH OIL 1,000 MG CAPSULE PO SCH (09:09)
[2020-10-07] MEDS: SERTRALINE HCL 100 MG TABLET PO SCH (09:09)
[2020-10-07] MEDS: FUROSEMIDE 20 MG TABLET PO SCH ×2 (09:09→16:27)
[2020-10-07] MEDS: MULTIVITAMINS WITH MINERALS, THERAPEUTIC TABLET PO SCH (09:09)
[2020-10-07] MEDS: METOPROLOL SUCCINATE 25 MG ER TABLET PO SCH (09:09)
[2020-10-07] MEDS: RIVAROXABAN 20 MG TABLET PO SCH (17:43)
[2020-10-07 18:49] VITALS: BP 132/94
[2020-10-07] MEDS: MELATONIN 5 MG TABLET PO SCH (20:16)
[2020-10-08] MEDS: LURASIDONE HCL 80 MG TABLET PO SCH (06:57)
[2020-10-08] MEDS: MULTIVITAMINS WITH MINERALS, THERAPEUTIC TABLET PO SCH (08:09)
[2020-10-08] MEDS: NALTREXONE HCL 50 MG TABLET PO SCH (08:09)
[2020-10-08] MEDS: POLYETHYLENE GLYCOL 3350 17 GM PACKET PO SCH (08:09)
[2020-10-08] MEDS: OMEGA-3/DHA/EPA/FISH OIL 1,000 MG CAPSULE PO SCH (08:09)
[2020-10-08] MEDS: FUROSEMIDE 20 MG TABLET PO SCH ×2 (08:09→16:41)
[2020-10-08] MEDS: METOPROLOL SUCCINATE 25 MG ER TABLET PO SCH (08:09)
[2020-10-08] MEDS: SERTRALINE HCL 100 MG TABLET PO SCH (08:09)
[2020-10-08] MEDS: FLUTICASONE/VILANTEROL 100-25 MCG/INH INHALER [14] IH SCH (08:15)
[2020-10-08 08:39] VITALS: BP 130/91
[2020-10-08] MEDS: RIVAROXABAN 20 MG TABLET PO SCH (17:35)
[2020-10-08] MEDS: MELATONIN 5 MG TABLET PO SCH (20:11)
[2020-10-09] MEDS: LURASIDONE HCL 80 MG TABLET PO SCH (06:38)
[2020-10-09 08:00] VITALS: BP 147/79
[2020-10-09] MEDS: NALTREXONE HCL 50 MG TABLET PO SCH (09:00)
[2020-10-09] MEDS: FLUTICASONE/VILANTEROL 100-25 MCG/INH INHALER [14] IH SCH (09:59)
[2020-10-09] MEDS: METOPROLOL SUCCINATE 25 MG ER TABLET PO SCH (09:59)
[2020-10-09] MEDS: MULTIVITAMINS WITH MINERALS, THERAPEUTIC TABLET PO SCH (09:59)
[2020-10-09] MEDS: POLYETHYLENE GLYCOL 3350 17 GM PACKET PO SCH (09:59)
[2020-10-09] MEDS: SERTRALINE HCL 100 MG TABLET PO SCH (09:59)
[2020-10-09] MEDS: FUROSEMIDE 20 MG TABLET PO SCH ×2 (09:59→17:06)
[2020-10-09] MEDS: OMEGA-3/DHA/EPA/FISH OIL 1,000 MG CAPSULE PO SCH (09:59)
[2020-10-09] MEDS: RIVAROXABAN 20 MG TABLET PO SCH (17:06)
[2020-10-09 17:41] VITALS: BP 144/86
[2020-10-09 20:00] LABS: COVID AG,FIA SOURCE NASAL SWAB
[2020-10-09] MEDS: MELATONIN 5 MG TABLET PO SCH (20:42)
[2020-10-10] MEDS: LURASIDONE HCL 80 MG TABLET PO SCH (06:52)
[2020-10-10] MEDS: NALTREXONE HCL 50 MG TABLET PO SCH (09:00)
[2020-10-10] MEDS: FUROSEMIDE 20 MG TABLET PO SCH ×2 (09:50→16:57)
[2020-10-10] MEDS: OMEGA-3/DHA/EPA/FISH OIL 1,000 MG CAPSULE PO SCH (09:50)
[2020-10-10] MEDS: SERTRALINE HCL 100 MG TABLET PO SCH (09:50)
[2020-10-10] MEDS: METOPROLOL SUCCINATE 25 MG ER TABLET PO SCH (09:50)
[2020-10-10] MEDS: MULTIVITAMINS WITH MINERALS, THERAPEUTIC TABLET PO SCH (09:50)
[2020-10-10] MEDS: FLUTICASONE/VILANTEROL 100-25 MCG/INH INHALER [14] IH SCH (09:51)
[2020-10-10] MEDS: POLYETHYLENE GLYCOL 3350 17 GM PACKET PO SCH (09:51)
[2020-10-10 10:09] VITALS: BP 132/68
[2020-10-10] MEDS ORDERED: GABAPENTIN 300 MG CAPSULE PO PRN (14:45)
[2020-10-10 16:00] VITALS: BP 124/79
[2020-10-10] MEDS: RIVAROXABAN 20 MG TABLET PO SCH (16:57)
[2020-10-10] MEDS: ACETAMINOPHEN 325 MG TABLET PO PRN (17:21)
[2020-10-10] MEDS: MELATONIN 5 MG TABLET PO SCH (20:51)
[2020-10-11] MEDS: LURASIDONE HCL 80 MG TABLET PO SCH (06:41)
[2020-10-11 08:54] VITALS: BP 122/74
[2020-10-11] MEDS: NALTREXONE HCL 50 MG TABLET PO SCH (09:00)
[2020-10-11] MEDS: FLUTICASONE/VILANTEROL 100-25 MCG/INH INHALER [14] IH SCH (09:00)
[2020-10-11] MEDS: SERTRALINE HCL 100 MG TABLET PO SCH (09:13)
[2020-10-11] MEDS: POLYETHYLENE GLYCOL 3350 17 GM PACKET PO SCH (09:13)
[2020-10-11] MEDS: MULTIVITAMINS WITH MINERALS, THERAPEUTIC TABLET PO SCH (09:13)
[2020-10-11] MEDS: FUROSEMIDE 20 MG TABLET PO SCH ×2 (09:13→17:21)
[2020-10-11] MEDS: OMEGA-3/DHA/EPA/FISH OIL 1,000 MG CAPSULE PO SCH (09:14)
[2020-10-11] MEDS: METOPROLOL SUCCINATE 25 MG ER TABLET PO SCH (09:14)
[2020-10-11 16:13] VITALS: BP 121/80
[2020-10-11] MEDS: RIVAROXABAN 20 MG TABLET PO SCH (17:21)
[2020-10-11] MEDS: MELATONIN 5 MG TABLET PO SCH (21:12)
[2020-10-12] MEDS: LURASIDONE HCL 80 MG TABLET PO SCH (06:38)
[2020-10-12 06:53] LABS: BASOPHILS % (AUTO) 0.6 % (0.0-2.0); EOSINOPHILS % (AUTO) 1.4 % (1.0-6.0); HEMATOCRIT 46.3 % (41-53); HEMOGLOBIN 15.3 g/dL (13.5-17.5); LYMPHOCYTES # (AUTO) 2.2 K/uL (1.0-4.8); LYMPHOCYTES % (AUTO) 24.3 % (22.0-44.0); MEAN CORPUSCULAR HEMOGLOBIN 31.1 pg (26.0-34.0); MEAN CORPUSCULAR VOLUME 94 fL (80-100); MONOCYTES # (AUTO) 0.8 K/uL (0.1-1.0); MONOCYTES % (AUTO) 9.3 % (2.0-9.0); NEUTROPHILS # (AUTO) 5.8 K/uL (1.8-7.7); NEUTROPHILS % (AUTO) 64.4 % (40.0-70.0); PLATELET COUNT (AUTO) 225 K/uL (150-450); RED BLOOD CELL COUNT(AUTO) 4.91 MIL/uL (4.50-5.90)
[2020-10-12 08:55] VITALS: BP 128/78
[2020-10-12] MEDS: FLUTICASONE/VILANTEROL 100-25 MCG/INH INHALER [14] IH SCH (09:00)
[2020-10-12] MEDS: NALTREXONE HCL 50 MG TABLET PO SCH (09:00)
[2020-10-12] MEDS ORDERED: CloZAPine 25 MG TABLET PO SCH (09:00)
[2020-10-12] MEDS: FUROSEMIDE 20 MG TABLET PO SCH ×2 (09:21→18:01)
[2020-10-12] MEDS: METOPROLOL SUCCINATE 25 MG ER TABLET PO SCH (09:21)
[2020-10-12] MEDS: SERTRALINE HCL 100 MG TABLET PO SCH (09:21)
[2020-10-12] MEDS: OMEGA-3/DHA/EPA/FISH OIL 1,000 MG CAPSULE PO SCH (09:22)
[2020-10-12] MEDS: POLYETHYLENE GLYCOL 3350 17 GM PACKET PO SCH (09:27)
[2020-10-12] MEDS: MULTIVITAMINS WITH MINERALS, THERAPEUTIC TABLET PO SCH (09:42)
[2020-10-12 16:25] VITALS: BP 115/75
[2020-10-12] MEDS: AMOX TR/POT CLAV 875 MG/125 MG TABLET PO SCH (18:01)
[2020-10-12] MEDS: RIVAROXABAN 20 MG TABLET PO SCH (18:01)
[2020-10-12] MEDS: MELATONIN 5 MG TABLET PO SCH (21:26)
[2020-10-13] MEDS: LURASIDONE HCL 80 MG TABLET PO SCH (06:47)
[2020-10-13 08:15] VITALS: BP 111/57
[2020-10-13] MEDS: POLYETHYLENE GLYCOL 3350 17 GM PACKET PO SCH (09:00)
[2020-10-13] MEDS: FLUTICASONE/VILANTEROL 100-25 MCG/INH INHALER [14] IH SCH (09:00)
[2020-10-13] MEDS ORDERED: CloZAPine 25 MG TABLET PO SCH ×2 (09:00→21:00)
[2020-10-13] MEDS: NALTREXONE HCL 50 MG TABLET PO SCH (09:00)
[2020-10-13] MEDS: FUROSEMIDE 20 MG TABLET PO SCH ×2 (09:03→16:57)
[2020-10-13] MEDS: MULTIVITAMINS WITH MINERALS, THERAPEUTIC TABLET PO SCH (09:03)
[2020-10-13] MEDS: AMOX TR/POT CLAV 875 MG/125 MG TABLET PO SCH ×2 (09:03→16:57)
[2020-10-13] MEDS: METOPROLOL SUCCINATE 25 MG ER TABLET PO SCH (09:03)
[2020-10-13] MEDS: SERTRALINE HCL 100 MG TABLET PO SCH (09:03)
[2020-10-13] MEDS: OMEGA-3/DHA/EPA/FISH OIL 1,000 MG CAPSULE PO SCH (09:03)
[2020-10-13] MEDS: RIVAROXABAN 20 MG TABLET PO SCH (16:57)
[2020-10-13 18:38] VITALS: BP 120/83
[2020-10-13] MEDS: MELATONIN 5 MG TABLET PO SCH (20:31)
[2020-10-14] MEDS: LURASIDONE HCL 80 MG TABLET PO SCH (06:47)
[2020-10-14] MEDS: NALTREXONE HCL 50 MG TABLET PO SCH (09:00)
[2020-10-14] MEDS ORDERED: CloZAPine 25 MG TABLET PO SCH ×2 (09:00→21:00)
[2020-10-14] MEDS: FLUTICASONE/VILANTEROL 100-25 MCG/INH INHALER [14] IH SCH (09:00)
[2020-10-14 09:32] VITALS: BP 144/99
[2020-10-14] MEDS: FUROSEMIDE 20 MG TABLET PO SCH ×2 (10:29→17:39)
[2020-10-14] MEDS: MULTIVITAMINS WITH MINERALS, THERAPEUTIC TABLET PO SCH (10:29)
[2020-10-14] MEDS: METOPROLOL SUCCINATE 25 MG ER TABLET PO SCH (10:30)
[2020-10-14] MEDS: SERTRALINE HCL 100 MG TABLET PO SCH (10:30)
[2020-10-14] MEDS: OMEGA-3/DHA/EPA/FISH OIL 1,000 MG CAPSULE PO SCH (10:30)
[2020-10-14] MEDS: AMOX TR/POT CLAV 875 MG/125 MG TABLET PO SCH ×2 (10:31→17:39)
[2020-10-14] MEDS: POLYETHYLENE GLYCOL 3350 17 GM PACKET PO SCH (10:31)
[2020-10-14 14:44] LABS: COVID AG,FIA SOURCE NASOPHARYNGEAL
[2020-10-14] MEDS: RIVAROXABAN 20 MG TABLET PO SCH (17:39)
[2020-10-14 19:47] VITALS: BP 135/86
[2020-10-14] MEDS: MELATONIN 5 MG TABLET PO SCH ×2 (20:41→21:00)
[2020-10-15 00:34] VITALS: BP 119/73
[2020-10-15] MEDS: LURASIDONE HCL 80 MG TABLET PO SCH (06:59)
[2020-10-15] MEDS: NALTREXONE HCL 50 MG TABLET PO SCH (09:00)
[2020-10-15] MEDS: SERTRALINE HCL 100 MG TABLET PO SCH ×2 (09:00→09:15)
[2020-10-15] MEDS: FLUTICASONE/VILANTEROL 100-25 MCG/INH INHALER [14] IH SCH (09:00)
[2020-10-15] MEDS: CloZAPine 25 MG TABLET PO SCH ×3 (09:00→21:00)
[2020-10-15] MEDS: AMOX TR/POT CLAV 875 MG/125 MG TABLET PO SCH ×2 (09:14→17:30)
[2020-10-15] MEDS: MULTIVITAMINS WITH MINERALS, THERAPEUTIC TABLET PO SCH (09:14)
[2020-10-15] MEDS: METOPROLOL SUCCINATE 25 MG ER TABLET PO SCH (09:14)
[2020-10-15 09:15] VITALS: BP 139/90
[2020-10-15] MEDS: OMEGA-3/DHA/EPA/FISH OIL 1,000 MG CAPSULE PO SCH (09:15)
[2020-10-15] MEDS: FUROSEMIDE 20 MG TABLET PO SCH ×2 (09:16→17:31)
[2020-10-15] MEDS: POLYETHYLENE GLYCOL 3350 17 GM PACKET PO SCH (09:16)
[2020-10-15 16:00] VITALS: BP 129/83
[2020-10-15] MEDS: RIVAROXABAN 20 MG TABLET PO SCH (17:31)
[2020-10-15] MEDS: MELATONIN 5 MG TABLET PO SCH (22:47)
[2020-10-16 01:00] VITALS: BP 124/85
[2020-10-16] MEDS: IBUPROFEN 600 MG TABLET PO PRN ×2 (01:00→20:04)
[2020-10-16] MEDS: LURASIDONE HCL 80 MG TABLET PO SCH (06:44)
[2020-10-16] MEDS: SERTRALINE HCL 100 MG TABLET PO SCH (09:00)
[2020-10-16] MEDS: FLUTICASONE/VILANTEROL 100-25 MCG/INH INHALER [14] IH SCH (09:00)
[2020-10-16] MEDS: CloZAPine 25 MG TABLET PO SCH ×2 (09:00→20:07)
[2020-10-16] MEDS: NALTREXONE HCL 50 MG TABLET PO SCH (09:00)
[2020-10-16 09:28] VITALS: BP 112/58
[2020-10-16] MEDS: MULTIVITAMINS WITH MINERALS, THERAPEUTIC TABLET PO SCH (09:42)
[2020-10-16] MEDS: FUROSEMIDE 20 MG TABLET PO SCH ×2 (09:43→17:23)
[2020-10-16] MEDS: METOPROLOL SUCCINATE 25 MG ER TABLET PO SCH (09:43)
[2020-10-16] MEDS: AMOX TR/POT CLAV 875 MG/125 MG TABLET PO SCH ×2 (09:43→17:23)
[2020-10-16] MEDS: OMEGA-3/DHA/EPA/FISH OIL 1,000 MG CAPSULE PO SCH (09:43)
[2020-10-16] MEDS: POLYETHYLENE GLYCOL 3350 17 GM PACKET PO SCH (09:44)
[2020-10-16] MEDS: BENZOCAINE 10% 7 GM GEL TP PRN (09:57)
[2020-10-16] MEDS: RIVAROXABAN 20 MG TABLET PO SCH (17:23)
[2020-10-16 17:55] VITALS: BP 141/91
[2020-10-16 20:02] VITALS: BP 151/84
[2020-10-16] MEDS: MELATONIN 5 MG TABLET PO SCH (20:04)
[2020-10-16 21:05] VITALS: BP 145/88
[2020-10-17 00:15] VITALS: BP 116/79
[2020-10-17] MEDS: BENZOCAINE 10% 7 GM GEL TP PRN (00:28)
[2020-10-17] MEDS: FLUTICASONE/VILANTEROL 100-25 MCG/INH INHALER [14] IH SCH (09:00)
[2020-10-17] MEDS: NALTREXONE HCL 50 MG TABLET PO SCH (09:00)
[2020-10-17] MEDS ORDERED: CloZAPine 25 MG TABLET PO SCH (09:00)
[2020-10-17] MEDS: SERTRALINE HCL 100 MG TABLET PO SCH ×2 (09:00→09:33)
[2020-10-17] MEDS: LURASIDONE HCL 80 MG TABLET PO SCH (09:27)
[2020-10-17] MEDS: AMOX TR/POT CLAV 875 MG/125 MG TABLET PO SCH (09:28)
[2020-10-17] MEDS: POLYETHYLENE GLYCOL 3350 17 GM PACKET PO SCH (09:28)
[2020-10-17] MEDS: METOPROLOL SUCCINATE 25 MG ER TABLET PO SCH (09:29)
[2020-10-17 09:30] VITALS: BP 112/74
[2020-10-17] MEDS: MULTIVITAMINS WITH MINERALS, THERAPEUTIC TABLET PO SCH (09:32)
[2020-10-17] MEDS: OMEGA-3/DHA/EPA/FISH OIL 1,000 MG CAPSULE PO SCH (09:33)
[2020-10-17] MEDS: FUROSEMIDE 20 MG TABLET PO SCH ×2 (09:33→17:10)
[2020-10-17 16:00] VITALS: BP 132/80
[2020-10-17] MEDS: RIVAROXABAN 20 MG TABLET PO SCH (17:09)
[2020-10-17] MEDS: MELATONIN 5 MG TABLET PO SCH (20:28)
[2020-10-17] MEDS ORDERED: CloZAPine 100 MG TABLET PO SCH (21:00)
[2020-10-18 04:58] VITALS: BP 141/104
[2020-10-18] MEDS: BENZOCAINE 10% 7 GM GEL TP PRN ×2 (05:04→22:47)
[2020-10-18 08:50] VITALS: BP 118/83
[2020-10-18] MEDS ORDERED: CloZAPine 25 MG TABLET PO SCH (09:00)
[2020-10-18] MEDS: NALTREXONE HCL 50 MG TABLET PO SCH (09:15)
[2020-10-18] MEDS: MULTIVITAMINS WITH MINERALS, THERAPEUTIC TABLET PO SCH (09:15)
[2020-10-18] MEDS: OMEGA-3/DHA/EPA/FISH OIL 1,000 MG CAPSULE PO SCH (09:16)
[2020-10-18] MEDS: FUROSEMIDE 20 MG TABLET PO SCH ×2 (09:16→16:18)
[2020-10-18] MEDS: METOPROLOL SUCCINATE 25 MG ER TABLET PO SCH (09:16)
[2020-10-18] MEDS: SERTRALINE HCL 100 MG TABLET PO SCH (09:16)
[2020-10-18] MEDS: ARIPiprazole 15 MG TABLET PO SCH (09:16)
[2020-10-18] MEDS: POLYETHYLENE GLYCOL 3350 17 GM PACKET PO SCH (09:18)
[2020-10-18] MEDS: FLUTICASONE/VILANTEROL 100-25 MCG/INH INHALER [14] IH SCH (09:19)
[2020-10-18 16:00] VITALS: BP 133/97
[2020-10-18] MEDS: RIVAROXABAN 20 MG TABLET PO SCH (16:18)
[2020-10-18] MEDS: IBUPROFEN 600 MG TABLET PO PRN (16:31)
[2020-10-18] MEDS: MELATONIN 5 MG TABLET PO SCH (20:15)
[2020-10-18] MEDS ORDERED: CloZAPine 100 MG TABLET PO SCH (21:00)
[2020-10-19 00:40] VITALS: BP 150/88
[2020-10-19] MEDS: IBUPROFEN 600 MG TABLET PO PRN (00:43)
[2020-10-19 08:50] VITALS: BP 137/80
[2020-10-19] MEDS: ARIPiprazole 15 MG TABLET PO SCH (08:53)
[2020-10-19] MEDS: OMEGA-3/DHA/EPA/FISH OIL 1,000 MG CAPSULE PO SCH (08:53)
[2020-10-19] MEDS: FLUTICASONE/VILANTEROL 100-25 MCG/INH INHALER [14] IH SCH (08:53)
[2020-10-19] MEDS: NALTREXONE HCL 50 MG TABLET PO SCH (08:54)
[2020-10-19] MEDS: FUROSEMIDE 20 MG TABLET PO SCH ×2 (08:55→17:04)
[2020-10-19] MEDS: MULTIVITAMINS WITH MINERALS, THERAPEUTIC TABLET PO SCH (08:55)
[2020-10-19] MEDS: SERTRALINE HCL 100 MG TABLET PO SCH (08:56)
[2020-10-19] MEDS: METOPROLOL SUCCINATE 25 MG ER TABLET PO SCH (08:57)
[2020-10-19] MEDS: POLYETHYLENE GLYCOL 3350 17 GM PACKET PO SCH (09:00)
[2020-10-19] MEDS ORDERED: CloZAPine 25 MG TABLET PO SCH (09:00)
[2020-10-19 17:04] VITALS: BP 134/97
[2020-10-19] MEDS: RIVAROXABAN 20 MG TABLET PO SCH (17:04)
[2020-10-19] MEDS: BENZOCAINE 10% 7 GM GEL TP PRN (18:39)
[2020-10-19] MEDS: MELATONIN 5 MG TABLET PO SCH (20:40)
[2020-10-19] MEDS ORDERED: CloZAPine 100 MG TABLET PO SCH (21:00)
[2020-10-20] MEDS: BENZOCAINE 10% 7 GM GEL TP PRN ×3 (00:29→19:58)
[2020-10-20 01:05] VITALS: BP 124/82
[2020-10-20] MEDS: IBUPROFEN 600 MG TABLET PO PRN (01:13)
[2020-10-20 08:02] VITALS: BP 132/89
[2020-10-20] MEDS: POLYETHYLENE GLYCOL 3350 17 GM PACKET PO SCH (09:00)
[2020-10-20] MEDS: NALTREXONE HCL 50 MG TABLET PO SCH (09:00)
[2020-10-20] MEDS: FUROSEMIDE 20 MG TABLET PO SCH ×2 (09:00→16:45)
[2020-10-20] MEDS: CloZAPine 100 MG TABLET PO SCH ×2 (09:00→20:03)
[2020-10-20] MEDS: SERTRALINE HCL 100 MG TABLET PO SCH (09:00)
[2020-10-20] MEDS: FLUTICASONE/VILANTEROL 100-25 MCG/INH INHALER [14] IH SCH (09:00)
[2020-10-20] MEDS: OMEGA-3/DHA/EPA/FISH OIL 1,000 MG CAPSULE PO SCH (09:03)
[2020-10-20] MEDS: ARIPiprazole 15 MG TABLET PO SCH (09:03)
[2020-10-20] MEDS: METOPROLOL SUCCINATE 25 MG ER TABLET PO SCH (09:03)
[2020-10-20] MEDS: MULTIVITAMINS WITH MINERALS, THERAPEUTIC TABLET PO SCH (09:03)
[2020-10-20] MEDS ORDERED: TUBERCULIN, PURIFIED PROTEIN DERIVATIVE 5 TU/0.1 ML SYRINGE ID ONE (15:00)
[2020-10-20 16:00] VITALS: BP 140/73
[2020-10-20] MEDS: RIVAROXABAN 20 MG TABLET PO SCH (16:45)
[2020-10-20] MEDS: MELATONIN 5 MG TABLET PO SCH (19:58)
[2020-10-21] MEDS: BENZOCAINE 10% 7 GM GEL TP PRN (02:44)
[2020-10-21 08:00] VITALS: BP 117/79
[2020-10-21] MEDS: NALTREXONE HCL 50 MG TABLET PO SCH (09:00)
[2020-10-21] MEDS: FLUTICASONE/VILANTEROL 100-25 MCG/INH INHALER [14] IH SCH (09:00)
[2020-10-21] MEDS: ARIPiprazole 15 MG TABLET PO SCH (09:00)
[2020-10-21] MEDS: CloZAPine 100 MG TABLET PO SCH ×2 (09:00→21:00)
[2020-10-21] MEDS: SERTRALINE HCL 100 MG TABLET PO SCH (09:00)
[2020-10-21] MEDS: METOPROLOL SUCCINATE 25 MG ER TABLET PO SCH (09:43)
[2020-10-21] MEDS: FUROSEMIDE 20 MG TABLET PO SCH ×2 (09:43→16:38)
[2020-10-21] MEDS: MULTIVITAMINS WITH MINERALS, THERAPEUTIC TABLET PO SCH (09:44)
[2020-10-21] MEDS: OMEGA-3/DHA/EPA/FISH OIL 1,000 MG CAPSULE PO SCH (09:44)
[2020-10-21] MEDS: POLYETHYLENE GLYCOL 3350 17 GM PACKET PO SCH (09:44)
[2020-10-21] MEDS: LACTULOSE 20 GM/30 ML SOLUTION UDCUP PO PRN (10:46)
[2020-10-21 16:10] VITALS: BP 134/28
[2020-10-21] MEDS: RIVAROXABAN 20 MG TABLET PO SCH (16:38)
[2020-10-21] MEDS ORDERED: TUBERCULIN, PURIFIED PROTEIN DERIVATIVE 5 TU/0.1 ML SYRINGE ID ONE (19:00)
[2020-10-21] MEDS: MELATONIN 5 MG TABLET PO SCH (21:11)
[2020-10-21 21:20] LABS: COVID AG,FIA SOURCE NASOPHARYNGEAL
[2020-10-22 05:39] LABS: BASOPHILS % (AUTO) 0.6 % (0.0-2.0); EOSINOPHILS % (AUTO) 1.1 % (1.0-6.0); HEMATOCRIT 46.4 % (41-53); HEMOGLOBIN 15.1 g/dL (13.5-17.5); LYMPHOCYTES # (AUTO) 2.3 K/uL (1.0-4.8); LYMPHOCYTES % (AUTO) 22.7 % (22.0-44.0); MEAN CORPUSCULAR HEMOGLOBIN 30.6 pg (26.0-34.0); MEAN CORPUSCULAR HGB CONC 32.6 G/dL (31.0-37.0); MEAN CORPUSCULAR VOLUME 94 fL (80-100); MONOCYTES # (AUTO) 0.8 K/uL (0.1-1.0); NEUTROPHILS # (AUTO) 6.9 K/uL (1.8-7.7); NEUTROPHILS % (AUTO) 67.6 % (40.0-70.0); PLATELET COUNT (AUTO) 251 K/uL (150-450); RED BLOOD CELL COUNT(AUTO) 4.94 MIL/uL (4.50-5.90); RED CELL DISTRIBUTION WIDTH 14.7 % (11.5-14.5)
[2020-10-22] MEDS: FLUTICASONE/VILANTEROL 100-25 MCG/INH INHALER [14] IH SCH (08:25)
[2020-10-22] MEDS: METOPROLOL SUCCINATE 25 MG ER TABLET PO SCH (08:26)
[2020-10-22] MEDS: POLYETHYLENE GLYCOL 3350 17 GM PACKET PO SCH (08:26)
[2020-10-22] MEDS: MULTIVITAMINS WITH MINERALS, THERAPEUTIC TABLET PO SCH (08:26)
[2020-10-22] MEDS: OMEGA-3/DHA/EPA/FISH OIL 1,000 MG CAPSULE PO SCH (08:28)
[2020-10-22] MEDS: FUROSEMIDE 20 MG TABLET PO SCH ×2 (08:29→17:19)
[2020-10-22] MEDS: NALTREXONE HCL 50 MG TABLET PO SCH (08:30)
[2020-10-22] MEDS ORDERED: CloZAPine 25 MG TABLET PO SCH (09:00)
[2020-10-22] MEDS: ARIPiprazole 15 MG TABLET PO SCH (09:00)
[2020-10-22] MEDS: SERTRALINE HCL 100 MG TABLET PO SCH (09:00)
[2020-10-22 16:23] VITALS: BP 149/89
[2020-10-22] MEDS: RIVAROXABAN 20 MG TABLET PO SCH (17:19)
[2020-10-22] MEDS: MELATONIN 5 MG TABLET PO SCH (20:51)
[2020-10-22] MEDS: LACTULOSE 20 GM/30 ML SOLUTION UDCUP PO PRN (20:55)
[2020-10-22] MEDS ORDERED: CloZAPine 100 MG TABLET PO SCH (21:00)
[2020-10-23] MEDS: BENZOCAINE 10% 7 GM GEL TP PRN (00:49)
[2020-10-23 01:25] VITALS: BP 130/82
[2020-10-23] MEDS: IBUPROFEN 600 MG TABLET PO PRN (01:28)
[2020-10-23] MEDS: SERTRALINE HCL 100 MG TABLET PO SCH (09:00)
[2020-10-23] MEDS: NALTREXONE HCL 50 MG TABLET PO SCH (09:00)
[2020-10-23] MEDS: FLUTICASONE/VILANTEROL 100-25 MCG/INH INHALER [14] IH SCH (09:00)
[2020-10-23] MEDS ORDERED: CloZAPine 25 MG TABLET PO SCH (09:00)
[2020-10-23] MEDS: ARIPiprazole 15 MG TABLET PO SCH (09:00)
[2020-10-23] MEDS: METOPROLOL SUCCINATE 25 MG ER TABLET PO SCH (09:11)
[2020-10-23] MEDS: OMEGA-3/DHA/EPA/FISH OIL 1,000 MG CAPSULE PO SCH (09:11)
[2020-10-23] MEDS: MULTIVITAMINS WITH MINERALS, THERAPEUTIC TABLET PO SCH (09:11)
[2020-10-23] MEDS: FUROSEMIDE 20 MG TABLET PO SCH ×2 (09:11→17:00)
[2020-10-23] MEDS: POLYETHYLENE GLYCOL 3350 17 GM PACKET PO SCH (09:12)
[2020-10-23 10:04] VITALS: BP 141/95
[2020-10-23 16:00] VITALS: BP 144/90
[2020-10-23 16:45] VITALS: BP 144/90
[2020-10-23] MEDS: RIVAROXABAN 20 MG TABLET PO SCH (17:00)
[2020-10-23] MEDS ORDERED: CLOZ100T31 PO ×2 (18:44)
[2020-10-23] MEDS ORDERED: NALT50TA PO (18:44)
[2020-10-23] MEDS ORDERED: OMEG-135 PO (18:44)
[2020-10-23] MEDS ORDERED: ARIP15TA2 PO (18:44)
[2020-10-23] MEDS ORDERED: SERT-440 PO (18:44)
[2020-10-23] MEDS ORDERED: MELA5TAB3 PO (18:44)
[2020-10-23] MEDS ORDERED: CloZAPine 100 MG TABLET PO SCH (21:00)
[2020-10-23] MEDS: MELATONIN 5 MG TABLET PO SCH (21:33)
[2020-10-24] MEDS: ARIPiprazole 15 MG TABLET PO SCH (09:00)
[2020-10-24] MEDS: NALTREXONE HCL 50 MG TABLET PO SCH (09:00)
[2020-10-24] MEDS ORDERED: CloZAPine 100 MG TABLET PO SCH ×2 (09:00→21:00)
[2020-10-24] MEDS: FLUTICASONE/VILANTEROL 100-25 MCG/INH INHALER [14] IH SCH (09:00)
[2020-10-24] MEDS: SERTRALINE HCL 100 MG TABLET PO SCH (09:00)
[2020-10-24] MEDS: OMEGA-3/DHA/EPA/FISH OIL 1,000 MG CAPSULE PO SCH (09:20)
[2020-10-24] MEDS: MULTIVITAMINS WITH MINERALS, THERAPEUTIC TABLET PO SCH (09:20)
[2020-10-24] MEDS: FUROSEMIDE 20 MG TABLET PO SCH (09:20)
[2020-10-24] MEDS: METOPROLOL SUCCINATE 25 MG ER TABLET PO SCH (09:20)
[2020-10-24] MEDS: POLYETHYLENE GLYCOL 3350 17 GM PACKET PO SCH (09:21)
[2020-10-24] MEDS: LACTULOSE 20 GM/30 ML SOLUTION UDCUP PO PRN (09:42)
[2020-10-24 10:02] VITALS: BP 132/85
[2020-10-24] MEDS ORDERED: FLUT1AER IH (11:34)
[2020-10-24] MEDS ORDERED: MULT-1239 PO (11:34)
== END 2020-10-24 15:20 | disposition home or self-care (01) | DRG 750 ==
LOC: EMS 16:57 → 3EI 22:22
PROVIDERS: ADMIT Psychiatry & Neurology Psychiatry; ATTEND Psychiatry & Neurology Psychiatry
DX: F25.0 Schizoaffective disorder, bipolar type (principal); I11.0 Hypertensive heart disease with heart failure; I50.32 Chronic diastolic (congestive) heart failure; R45.851 Suicidal ideations; E66.01 Morbid (severe) obesity due to excess calories; I25.10 Atherosclerotic heart disease of native coronary artery without angina pectoris; Z86.711 Personal history of pulmonary embolism; Z91.19 Patient's noncompliance with other medical treatment and regimen; K21.9 Gastro-esophageal reflux disease without esophagitis; Z86.718 Personal history of other venous thrombosis and embolism; G47.33 Obstructive sleep apnea (adult) (pediatric); F43.10 Post-traumatic stress disorder, unspecified; G62.9 Polyneuropathy, unspecified; K59.00 Constipation, unspecified; Z20.822 Contact with and (suspected) exposure to COVID-19; Z55.9 Problems related to education and literacy, unspecified; Z59.0 Homelessness; Z65.3 Problems related to other legal circumstances; Z79.01 Long term (current) use of anticoagulants; Z81.8 Family history of other mental and behavioral disorders; Z99.3 Dependence on wheelchair; F12.90 Cannabis use, unspecified, uncomplicated
CPT/HCPCS: 83036; 84439; 84443; 86592; 87081; 87426; 94660; 97161; 97166; 97535; 99285; A9575; G0480; J3535; Q0162; 36415-L1; 36415-TC; 71045-TC; 80061-TC; 81003-TC; U0003

== ENCOUNTER 2020-10-26 | Inpatient (IN) | payer MEDICAID, OTHER ==
[~2020-10-26] VITALS: Ht 177.8 cm; Wt 213.6 kg
[~2020-10-26] MED LIST changes: -ACET-784 PO; -ALBU8HFA IH; +ARIP15TA27 PO; +CLOZ100T31 PO; +FLUT1AER IH; -GABA-1216 PO; -HYDR25TA84 PO; -LACT30L PO; -LURA60TA PO; +MELA5TAB3 PO; +MULT-1239 PO; +NALT50TA PO; +OMEG-135 PO; -ONDA-104 PO; -SERT-162 PO; +SERT-440 PO
[2020-10-26 01:11] LABS: BASOPHILS % (AUTO) 0.8 % (0.0-2.0); HEMATOCRIT 49.6 % (41-53); HEMOGLOBIN 16.2 g/dL (13.5-17.5); LYMPHOCYTES % (AUTO) 19.4 % (22.0-44.0); MEAN CORPUSCULAR HEMOGLOBIN 30.8 pg (26.0-34.0); MEAN CORPUSCULAR HGB CONC 32.8 G/dL (31.0-37.0); MEAN CORPUSCULAR VOLUME 94 fL (80-100); MONOCYTES # (AUTO) 0.6 K/uL (0.1-1.0); NEUTROPHILS # (AUTO) 7.6 K/uL (1.8-7.7); NEUTROPHILS % (AUTO) 72.8 % (40.0-70.0); PLATELET COUNT (AUTO) 271 K/uL (150-450); RED BLOOD CELL COUNT(AUTO) 5.27 MIL/uL (4.50-5.90)
[2020-10-26 01:22] LABS: ANION GAP 9 mmol/L (8-16); CALCIUM, TOTAL 9.4 mg/dL (8.8-10.5); CARBON DIOXIDE 28 mmol/L (22-29); CHLORIDE 107 mmol/L (98-107); CREATININE 0.98 mg/dL (0.60-1.30); GLOMERULAR FILTR. RATE CALC > 60 mL/min (>60); GLUCOSE,RANDOM 131 mg/dL (70-110); POTASSIUM 3.7 mmol/L (3.5-5.1); SODIUM SERUM 144 mmol/L (136-145); UREA NITROGEN, BLOOD 17 mg/dL (7-18)
[2020-10-26 01:29] LABS: ALANINE AMINOTRANSFERASE 129 U/L (12-78); ALBUMIN 3.3 g/dL (3.4-5.0); ALKALINE PHOSPHATASE 69 U/L (46-116); ASPARTATE AMINOTRANSFERASE 35 U/L (15-37); BILIRUBIN,TOTAL 0.4 mg/dL (0.1-1.0); TOTAL PROTEIN, SERUM 8.3 g/dL (6.4-8.2)
[2020-10-26] MEDS ORDERED: ZOLPIDEM TARTRATE 10 MG TABLET PO PRN (04:45)
[2020-10-26] MEDS ORDERED: OLANZapine 5 MG RAPDIS TABLET PO PRN (04:45)
[2020-10-26] MEDS ORDERED: LORazepam 2 MG TABLET PO PRN (04:45)
[2020-10-26 05:42] LABS: COVID AG,FIA SOURCE NASOPHARYNGEAL
[2020-10-26 12:42] LABS: AMPHET/METH SCREEN,URINE NEGATIVE (NEGATIVE); BARBITURATE SCREEN, URINE NEGATIVE (NEGATIVE); BENZODIAZEPINES SCREEN,URINE NEGATIVE (NEGATIVE); CANNABINOID SCREEN,URINE NEGATIVE (NEGATIVE); COCAINE SCREEN,URINE NEGATIVE (NEGATIVE); METHADONE SCREEN, URINE NEGATIVE (NEGATIVE); OPIATE SCREEN,URINE NEGATIVE (NEGATIVE)
[2020-10-26 12:45] LABS: PHENCYCLIDINE SCREEN,URINE NEGATIVE (NEGATIVE)
[2020-10-26 20:30] VITALS: BP 132/78
[2020-10-27 06:36] LABS: CHOL/HDL RATIO 4.5 (4.2-7.3)
[2020-10-27 08:00] VITALS: BP 149/106
[2020-10-27] MEDS ORDERED: ALBUTEROL SULFATE HFA 90 MCG/PUFF 8 GM INHALER IH PRN (08:15)
[2020-10-27] MEDS ORDERED: ONDANSETRON HCL 4 MG TABLET PO PRN (08:15)
[2020-10-27] MEDS: POLYETHYLENE GLYCOL 3350 17 GM PACKET PO SCH (09:00)
[2020-10-27 09:42] VITALS: BP 142/84
[2020-10-27] MEDS: METOPROLOL SUCCINATE 25 MG ER TABLET PO SCH (09:45)
[2020-10-27] MEDS: FUROSEMIDE 20 MG TABLET PO SCH ×2 (09:45→16:20)
[2020-10-27 16:00] VITALS: BP 125/72
[2020-10-27] MEDS: RIVAROXABAN 20 MG TABLET PO SCH (16:20)
[2020-10-27] MEDS ORDERED: ACETAMINOPHEN 325 MG TABLET PO PRN (22:30)
[2020-10-27] MEDS: IBUPROFEN 600 MG TABLET PO PRN (22:34)
[2020-10-28] MEDS: METOPROLOL SUCCINATE 25 MG ER TABLET PO SCH (09:00)
[2020-10-28] MEDS: POLYETHYLENE GLYCOL 3350 17 GM PACKET PO SCH (09:00)
[2020-10-28] MEDS: FUROSEMIDE 20 MG TABLET PO SCH ×2 (09:00→17:15)
[2020-10-28 09:31] VITALS: BP 139/91
[2020-10-28 16:00] VITALS: BP 132/89
[2020-10-28] MEDS: RIVAROXABAN 20 MG TABLET PO SCH (17:15)
[2020-10-28] MEDS: LACTULOSE 20 GM/30 ML SOLUTION UDCUP PO PRN (19:42)
[2020-10-29] MEDS: POLYETHYLENE GLYCOL 3350 17 GM PACKET PO SCH (09:08)
[2020-10-29] MEDS: FUROSEMIDE 20 MG TABLET PO SCH ×2 (09:08→16:42)
[2020-10-29] MEDS: METOPROLOL SUCCINATE 25 MG ER TABLET PO SCH (09:08)
[2020-10-29 12:48] VITALS: BP 112/66
[2020-10-29] MEDS: RIVAROXABAN 20 MG TABLET PO SCH (16:41)
[2020-10-29 17:14] VITALS: BP 121/80
[2020-10-30 00:13] VITALS: BP 146/101
[2020-10-30] MEDS: FUROSEMIDE 20 MG TABLET PO SCH ×2 (08:49→16:37)
[2020-10-30] MEDS: METOPROLOL SUCCINATE 25 MG ER TABLET PO SCH (08:49)
[2020-10-30] MEDS: ARIPiprazole 15 MG TABLET PO SCH (08:58)
[2020-10-30] MEDS ORDERED: SERTRALINE HCL 100 MG TABLET PO SCH (09:00)
[2020-10-30] MEDS ORDERED: CloZAPine 25 MG TABLET PO SCH (09:00)
[2020-10-30] MEDS: POLYETHYLENE GLYCOL 3350 17 GM PACKET PO SCH (09:00)
[2020-10-30] MEDS: RIVAROXABAN 20 MG TABLET PO SCH (16:37)
[2020-10-30] MEDS: IBUPROFEN 600 MG TABLET PO PRN (21:43)
[2020-10-31 00:35] VITALS: BP 121/76
[2020-10-31] MEDS: POLYETHYLENE GLYCOL 3350 17 GM PACKET PO SCH (08:23)
[2020-10-31] MEDS: ARIPiprazole 15 MG TABLET PO SCH (08:23)
[2020-10-31] MEDS: METOPROLOL SUCCINATE 25 MG ER TABLET PO SCH (08:24)
[2020-10-31] MEDS: FUROSEMIDE 20 MG TABLET PO SCH ×2 (08:24→17:05)
[2020-10-31] MEDS ORDERED: CloZAPine 25 MG TABLET PO SCH ×2 (09:00→21:00)
[2020-10-31 09:03] VITALS: BP 129/97
[2020-10-31] MEDS: IBUPROFEN 600 MG TABLET PO PRN ×2 (09:58→22:25)
[2020-10-31 16:00] VITALS: BP 130/76
[2020-10-31] MEDS: RIVAROXABAN 20 MG TABLET PO SCH (17:06)
[2020-11-01] MEDS: FUROSEMIDE 20 MG TABLET PO SCH ×2 (08:29→16:25)
[2020-11-01] MEDS: METOPROLOL SUCCINATE 25 MG ER TABLET PO SCH (08:29)
[2020-11-01] MEDS: ARIPiprazole 15 MG TABLET PO SCH (08:29)
[2020-11-01] MEDS ORDERED: CloZAPine 25 MG TABLET PO SCH ×2 (09:00→21:00)
[2020-11-01] MEDS: POLYETHYLENE GLYCOL 3350 17 GM PACKET PO SCH (09:00)
[2020-11-01] MEDS: RIVAROXABAN 20 MG TABLET PO SCH (16:25)
[2020-11-02] MEDS: POLYETHYLENE GLYCOL 3350 17 GM PACKET PO SCH (09:00)
[2020-11-02] MEDS ORDERED: CloZAPine 25 MG TABLET PO SCH (09:00)
[2020-11-02] MEDS: FUROSEMIDE 20 MG TABLET PO SCH ×2 (09:25→16:46)
[2020-11-02] MEDS: ARIPiprazole 15 MG TABLET PO SCH (09:25)
[2020-11-02] MEDS: METOPROLOL SUCCINATE 25 MG ER TABLET PO SCH (09:25)
[2020-11-02 10:10] VITALS: BP 121/80
[2020-11-02] MEDS: IBUPROFEN 600 MG TABLET PO PRN ×2 (10:15→21:45)
[2020-11-02 11:15] VITALS: BP 117/76
[2020-11-02] MEDS: RIVAROXABAN 20 MG TABLET PO SCH (16:46)
[2020-11-02 16:50] VITALS: BP 126/69
[2020-11-02 21:45] VITALS: BP 127/72
[2020-11-02] MEDS: MELATONIN 5 MG TABLET PO SCH (22:39)
[2020-11-03] MEDS: ARIPiprazole 15 MG TABLET PO SCH (09:00)
[2020-11-03] MEDS: FUROSEMIDE 20 MG TABLET PO SCH ×2 (09:00→16:16)
[2020-11-03] MEDS: METOPROLOL SUCCINATE 25 MG ER TABLET PO SCH (09:00)
[2020-11-03] MEDS: POLYETHYLENE GLYCOL 3350 17 GM PACKET PO SCH (09:00)
[2020-11-03 16:00] VITALS: BP 135/93
[2020-11-03] MEDS: RIVAROXABAN 20 MG TABLET PO SCH (16:16)
[2020-11-03] MEDS: MELATONIN 5 MG TABLET PO SCH (21:52)
[2020-11-04 08:49] VITALS: BP 134/84
[2020-11-04] MEDS: METOPROLOL SUCCINATE 25 MG ER TABLET PO SCH (08:49)
[2020-11-04] MEDS: FUROSEMIDE 20 MG TABLET PO SCH ×2 (08:49→16:25)
[2020-11-04] MEDS ORDERED: CloZAPine 25 MG TABLET PO SCH (09:00)
[2020-11-04] MEDS ORDERED: ARIPiprazole 10 MG TABLET PO SCH (09:00)
[2020-11-04 16:00] VITALS: BP 130/95
[2020-11-04] MEDS: RIVAROXABAN 20 MG TABLET PO SCH (16:25)
[2020-11-04] MEDS: MELATONIN 5 MG TABLET PO SCH (20:41)
[2020-11-04] MEDS: ARIPiprazole 5 MG TABLET PO SCH (20:42)
[2020-11-04] MEDS ORDERED: CloZAPine 100 MG TABLET PO SCH (21:00)
[2020-11-05] MEDS: ARIPiprazole 5 MG TABLET PO SCH ×4 (08:19→20:37)
[2020-11-05] MEDS: METOPROLOL SUCCINATE 25 MG ER TABLET PO SCH (08:19)
[2020-11-05] MEDS: FUROSEMIDE 20 MG TABLET PO SCH ×2 (08:19→16:27)
[2020-11-05 08:25] VITALS: BP 116/66
[2020-11-05] MEDS ORDERED: CloZAPine 25 MG TABLET PO SCH (09:00)
[2020-11-05] MEDS: RIVAROXABAN 20 MG TABLET PO SCH (16:27)
[2020-11-05 16:28] VITALS: BP 129/96
[2020-11-05] MEDS: MELATONIN 5 MG TABLET PO SCH (20:31)
[2020-11-05] MEDS ORDERED: CloZAPine 100 MG TABLET PO SCH (21:00)
[2020-11-06 08:00] VITALS: BP 143/107
[2020-11-06] MEDS ORDERED: CloZAPine 25 MG TABLET PO SCH (09:00)
[2020-11-06] MEDS: FUROSEMIDE 20 MG TABLET PO SCH ×2 (09:51→17:32)
[2020-11-06] MEDS: METOPROLOL SUCCINATE 25 MG ER TABLET PO SCH (09:51)
[2020-11-06] MEDS: ARIPiprazole 5 MG TABLET PO SCH ×4 (09:51→20:59)
[2020-11-06] MEDS: POLYETHYLENE GLYCOL 3350 17 GM PACKET PO PRN (11:27)
[2020-11-06 16:45] VITALS: BP 137/85
[2020-11-06] MEDS: RIVAROXABAN 20 MG TABLET PO SCH (17:32)
[2020-11-06] MEDS: MELATONIN 5 MG TABLET PO SCH (20:59)
[2020-11-06] MEDS ORDERED: CloZAPine 100 MG TABLET PO SCH (21:00)
[2020-11-06 22:09] LABS: COVID AG,FIA SOURCE NASAL SWAB
[2020-11-07] MEDS ORDERED: CloZAPine 100 MG TABLET PO SCH (09:00)
[2020-11-07] MEDS: METOPROLOL SUCCINATE 25 MG ER TABLET PO SCH (10:24)
[2020-11-07] MEDS: ARIPiprazole 5 MG TABLET PO SCH ×4 (10:24→21:15)
[2020-11-07] MEDS: FUROSEMIDE 20 MG TABLET PO SCH ×2 (10:24→16:57)
[2020-11-07] MEDS: POLYETHYLENE GLYCOL 3350 17 GM PACKET PO PRN (10:54)
[2020-11-07 16:00] VITALS: BP 149/93
[2020-11-07] MEDS: RIVAROXABAN 20 MG TABLET PO SCH (16:57)
[2020-11-07] MEDS: MELATONIN 5 MG TABLET PO SCH (21:15)
[2020-11-07] MEDS: IBUPROFEN 600 MG TABLET PO PRN (23:56)
[2020-11-08 00:01] VITALS: BP 144/94
[2020-11-08 08:00] VITALS: BP 104/60
[2020-11-08] MEDS: ARIPiprazole 5 MG TABLET PO SCH ×4 (08:42→21:01)
[2020-11-08] MEDS: FUROSEMIDE 20 MG TABLET PO SCH ×2 (08:42→17:39)
[2020-11-08] MEDS: METOPROLOL SUCCINATE 25 MG ER TABLET PO SCH (08:42)
[2020-11-08 16:06] VITALS: BP 130/71
[2020-11-08] MEDS: RIVAROXABAN 20 MG TABLET PO SCH (17:39)
[2020-11-08] MEDS: MELATONIN 5 MG TABLET PO SCH (21:01)
[2020-11-09 04:05] VITALS: BP 142/88
[2020-11-09 08:00] VITALS: BP 167/102
[2020-11-09] MEDS: FUROSEMIDE 20 MG TABLET PO SCH ×2 (08:27→17:00)
[2020-11-09] MEDS: METOPROLOL SUCCINATE 25 MG ER TABLET PO SCH (08:27)
[2020-11-09] MEDS: POLYETHYLENE GLYCOL 3350 17 GM PACKET PO PRN (08:32)
[2020-11-09] MEDS ORDERED: CloZAPine 25 MG TABLET PO SCH (09:00)
[2020-11-09] MEDS: ARIPiprazole 5 MG TABLET PO SCH ×4 (09:00→21:00)
[2020-11-09] MEDS: CloNIDine HCL 0.1 MG TABLET PO PRN ×2 (11:40→19:56)
[2020-11-09 16:17] VITALS: BP 115/75
[2020-11-09] MEDS: RIVAROXABAN 20 MG TABLET PO SCH (17:30)
[2020-11-09 19:55] VITALS: BP 166/98
[2020-11-09] MEDS: MELATONIN 5 MG TABLET PO SCH (21:00)
[2020-11-09] MEDS ORDERED: CloZAPine 100 MG TABLET PO SCH (21:00)
[2020-11-10 01:37] VITALS: BP 159/94
[2020-11-10 08:11] VITALS: BP 153/103
[2020-11-10] MEDS: METOPROLOL SUCCINATE 25 MG ER TABLET PO SCH (08:54)
[2020-11-10] MEDS: ARIPiprazole 5 MG TABLET PO SCH ×3 (08:55→22:13)
[2020-11-10] MEDS: FUROSEMIDE 20 MG TABLET PO SCH ×2 (08:55→17:56)
[2020-11-10] MEDS ORDERED: CloZAPine 25 MG TABLET PO SCH (09:00)
[2020-11-10 16:00] VITALS: BP 148/100
[2020-11-10] MEDS: RIVAROXABAN 20 MG TABLET PO SCH (17:56)
[2020-11-10 20:49] VITALS: BP 150/89
[2020-11-10] MEDS ORDERED: CloZAPine 100 MG TABLET PO SCH (21:00)
[2020-11-10] MEDS: MELATONIN 5 MG TABLET PO SCH (21:00)
[2020-11-10] MEDS: LACTULOSE 20 GM/30 ML SOLUTION UDCUP PO PRN (22:17)
[2020-11-11 02:30] VITALS: BP 142/92
[2020-11-11 08:54] VITALS: BP 133/88
[2020-11-11] MEDS: FUROSEMIDE 20 MG TABLET PO SCH ×3 (09:00→16:48)
[2020-11-11] MEDS: AmLODIPine BESYLATE 2.5 MG TABLET PO SCH ×2 (09:00→09:51)
[2020-11-11] MEDS: METOPROLOL SUCCINATE 25 MG ER TABLET PO SCH ×2 (09:00→09:51)
[2020-11-11] MEDS: ARIPiprazole 5 MG TABLET PO SCH ×4 (09:00→16:52)
[2020-11-11] MEDS ORDERED: CloZAPine 100 MG TABLET PO SCH ×2 (09:00→21:00)
[2020-11-11 16:00] VITALS: BP 123/74
[2020-11-11] MEDS: RIVAROXABAN 20 MG TABLET PO SCH (17:43)
[2020-11-11] MEDS ORDERED: OMEG-135 PO (19:11)
[2020-11-11] MEDS ORDERED: ARIP5TAB37 PO (19:11)
[2020-11-11] MEDS ORDERED: MELA5TAB3 PO (19:11)
[2020-11-11] MEDS ORDERED: FURO20 PO (19:36)
[2020-11-11] MEDS ORDERED: METO25XL PO (19:37)
[2020-11-11] MEDS ORDERED: AMLO2.5T96 PO (19:38)
[2020-11-11] MEDS ORDERED: RIVA20TA PO (19:39)
== END 2020-11-11 20:45 | disposition home or self-care (01) | DRG 750 ==
LOC: EMS 00:04 → 3EI 19:40
PROVIDERS: ADMIT Psychiatry & Neurology Psychiatry; ATTEND Psychiatry & Neurology Psychiatry
DX: F25.0 Schizoaffective disorder, bipolar type (principal); Z93.0 Tracheostomy status; I11.0 Hypertensive heart disease with heart failure; I50.9 Heart failure, unspecified; R45.851 Suicidal ideations; E66.01 Morbid (severe) obesity due to excess calories; Z20.822 Contact with and (suspected) exposure to COVID-19; F43.10 Post-traumatic stress disorder, unspecified; G47.33 Obstructive sleep apnea (adult) (pediatric); J44.9 Chronic obstructive pulmonary disease, unspecified; K21.9 Gastro-esophageal reflux disease without esophagitis; G47.00 Insomnia, unspecified; M54.9 Dorsalgia, unspecified; R26.9 Unspecified abnormalities of gait and mobility; R41.843 Psychomotor deficit; Z55.9 Problems related to education and literacy, unspecified; Z59.9 Problem related to housing and economic circumstances, unspecified; Z65.3 Problems related to other legal circumstances; Z79.01 Long term (current) use of anticoagulants; Z79.899 Other long term (current) drug therapy; Z86.718 Personal history of other venous thrombosis and embolism; Z91.19 Patient's noncompliance with other medical treatment and regimen; Z90.49 Acquired absence of other specified parts of digestive tract; Z68.44 Body mass index [BMI] 60.0-69.9, adult
CPT/HCPCS: 80053; 80061; 85025; 87081; 87426; 94660; 99285; A9575; G0480; Q0162

== ENCOUNTER 2021-01-17 11:51 | Emergency (ER) | payer OTHER ==
[~2021-01-17] VITALS: Ht 177.8 cm; Wt 204.6 kg
[~2021-01-17 11:51] MED LIST changes: +AMLO2.5T96 PO; -ARIP15TA27 PO; +ARIP5TAB37 PO; +BENZ200C53 PO; -CLOZ100T31 PO; -FLUT1AER IH; +IPRAHFA IH; -MELA5TAB3 PO; -METO-558 PO; +METO25XL PO; -MULT-1239 PO; -NALT50TA PO; -OMEG-135 PO; -POLY17PO47 PO; -SERT-440 PO
[2021-01-17 16:20] VITALS: BP 133/83
== END 2021-01-17 16:30 | disposition home or self-care (01) ==
LOC: EMS 11:51
DX: F20.9 Schizophrenia, unspecified (principal); R45.851 Suicidal ideations; I11.0 Hypertensive heart disease with heart failure; I50.9 Heart failure, unspecified; F31.9 Bipolar disorder, unspecified; Z90.89 Acquired absence of other organs; Z79.899 Other long term (current) drug therapy
CPT/HCPCS: 99285; Z7502

== ENCOUNTER 2021-01-22 13:39 | Emergency (ER) | payer OTHER ==
[~2021-01-22] VITALS: Ht 157.5 cm; Wt 177.3 kg
[2021-01-22 16:37] VITALS: BP 144/79
== END 2021-01-22 16:41 | disposition home or self-care (01) ==
LOC: EMS 13:51
DX: F25.1 Schizoaffective disorder, depressive type (principal); I11.0 Hypertensive heart disease with heart failure; I50.9 Heart failure, unspecified; F31.9 Bipolar disorder, unspecified
CPT/HCPCS: 99285; Z7502

== ENCOUNTER 2021-01-24 18:35 | Emergency (ER) | payer OTHER ==
[~2021-01-24] VITALS: Ht 157.5 cm; Wt 177.3 kg
[2021-01-25] MEDS ORDERED: RIVAROXABAN 20 MG TABLET PO ONE (03:30)
[2021-01-25 04:07] LABS: BASOPHILS % (AUTO) 0.4 % (0.0-2.0); EOSINOPHILS % (AUTO) 0.7 % (1.0-6.0); HEMATOCRIT 42.2 % (41-53); HEMOGLOBIN 13.7 g/dL (13.5-17.5); LYMPHOCYTES # (AUTO) 1.5 K/uL (1.0-4.8); LYMPHOCYTES % (AUTO) 13.4 % (22.0-44.0); MEAN CORPUSCULAR HEMOGLOBIN 30.9 pg (26.0-34.0); MEAN CORPUSCULAR HGB CONC 32.4 G/dL (31.0-37.0); MEAN CORPUSCULAR VOLUME 95 fL (80-100); MONOCYTES # (AUTO) 0.9 K/uL (0.1-1.0); MONOCYTES % (AUTO) 7.9 % (2.0-9.0); NEUTROPHILS # (AUTO) 8.5 K/uL (1.8-7.7); NEUTROPHILS % (AUTO) 77.6 % (40.0-70.0); PLATELET COUNT (AUTO) 299 K/uL (150-450); RED BLOOD CELL COUNT(AUTO) 4.43 MIL/uL (4.50-5.90); RED CELL DISTRIBUTION WIDTH 16.3 % (11.5-14.5)
[2021-01-25 04:15] LABS: ANION GAP 11 mmol/L (8-16); CARBON DIOXIDE 28 mmol/L (22-29); CHLORIDE 108 mmol/L (98-107); CREATININE 0.98 mg/dL (0.60-1.30); GLOMERULAR FILTR. RATE CALC > 60 mL/min (>60); GLUCOSE,RANDOM 234 mg/dL (70-110); POTASSIUM 4.2 mmol/L (3.5-5.1); SODIUM SERUM 147 mmol/L (136-145); UREA NITROGEN, BLOOD 18 mg/dL (7-18)
[2021-01-25 04:20] LABS: ALANINE AMINOTRANSFERASE 44 U/L (12-78); ALBUMIN 3.1 g/dL (3.4-5.0); ALKALINE PHOSPHATASE 94 U/L (46-116); ASPARTATE AMINOTRANSFERASE 15 U/L (15-37); BILIRUBIN,TOTAL 0.2 mg/dL (0.1-1.0); TOTAL PROTEIN, SERUM 8.1 g/dL (6.4-8.2)
[2021-01-25 04:35] LABS: COVID AG,FIA SOURCE NASOPHARYNGEAL
[2021-01-25 04:47] LABS: AMPHET/METH SCREEN,URINE NEGATIVE (NEGATIVE); BARBITURATE SCREEN, URINE NEGATIVE (NEGATIVE); BENZODIAZEPINES SCREEN,URINE NEGATIVE (NEGATIVE); CANNABINOID SCREEN,URINE NEGATIVE (NEGATIVE); COCAINE SCREEN,URINE NEGATIVE (NEGATIVE); METHADONE SCREEN, URINE NEGATIVE (NEGATIVE); OPIATE SCREEN,URINE NEGATIVE (NEGATIVE)
[2021-01-25 04:48] LABS: PHENCYCLIDINE SCREEN,URINE NEGATIVE (NEGATIVE)
[2021-01-25 09:20] VITALS: BP 129/81
== END 2021-01-25 09:25 | disposition home or self-care (01) ==
LOC: EMS 18:35
DX: F25.9 Schizoaffective disorder, unspecified (principal); Z20.822 Contact with and (suspected) exposure to COVID-19; I11.0 Hypertensive heart disease with heart failure; I50.9 Heart failure, unspecified; F31.9 Bipolar disorder, unspecified
CPT/HCPCS: 36415; 80053; 80307; 82962; 85025; 87426; 93005; 99285; G0480; 82948

== ENCOUNTER 2021-01-26 02:56 | Inpatient (IN) | payer MEDICAID, OTHER ==
[~2021-01-26] VITALS: Ht 177.8 cm; Wt 218.2 kg
[2021-01-26] MEDS ORDERED: HALOPERIDOL 5 MG TABLET PO PRN (04:15)
[2021-01-26] MEDS ORDERED: LORazepam 2 MG TABLET PO PRN (04:15)
[2021-01-26] MEDS ORDERED: ZOLPIDEM TARTRATE 10 MG TABLET PO PRN (04:15)
[2021-01-26 04:43] LABS: BASOPHILS % (AUTO) 0.7 % (0.0-2.0); EOSINOPHILS % (AUTO) 0.1 % (1.0-6.0); HEMATOCRIT 40.8 % (41-53); HEMOGLOBIN 12.8 g/dL (13.5-17.5); LYMPHOCYTES # (AUTO) 1.3 K/uL (1.0-4.8); LYMPHOCYTES % (AUTO) 11.9 % (22.0-44.0); MEAN CORPUSCULAR HEMOGLOBIN 30.2 pg (26.0-34.0); MEAN CORPUSCULAR HGB CONC 31.4 G/dL (31.0-37.0); MEAN CORPUSCULAR VOLUME 96 fL (80-100); MONOCYTES # (AUTO) 1.2 K/uL (0.1-1.0); MONOCYTES % (AUTO) 10.6 % (2.0-9.0); NEUTROPHILS # (AUTO) 8.5 K/uL (1.8-7.7); NEUTROPHILS % (AUTO) 76.7 % (40.0-70.0); PLATELET COUNT (AUTO) 270 K/uL (150-450); RED BLOOD CELL COUNT(AUTO) 4.25 MIL/uL (4.50-5.90); RED CELL DISTRIBUTION WIDTH 16.5 % (11.5-14.5)
[2021-01-26 04:50] LABS: ANION GAP 7 mmol/L (8-16); CALCIUM, TOTAL 8.4 mg/dL (8.8-10.5); CARBON DIOXIDE 29 mmol/L (22-29); CHLORIDE 113 mmol/L (98-107); CREATININE 0.92 mg/dL (0.60-1.30); GLOMERULAR FILTR. RATE CALC > 60 mL/min (>60); GLUCOSE,RANDOM 332 mg/dL (70-110); POTASSIUM 3.7 mmol/L (3.5-5.1); SODIUM SERUM 149 mmol/L (136-145); UREA NITROGEN, BLOOD 19 mg/dL (7-18)
[2021-01-26 04:56] LABS: ALANINE AMINOTRANSFERASE 44 U/L (12-78); ALKALINE PHOSPHATASE 103 U/L (46-116); ASPARTATE AMINOTRANSFERASE 14 U/L (15-37); BILIRUBIN,TOTAL 0.2 mg/dL (0.1-1.0); TOTAL PROTEIN, SERUM 7.7 g/dL (6.4-8.2)
[2021-01-26 05:16] LABS: COVID AG,FIA SOURCE NASOPHARYNGEAL
[2021-01-26 07:15] LABS: AMPHET/METH SCREEN,URINE NEGATIVE (NEGATIVE); BARBITURATE SCREEN, URINE NEGATIVE (NEGATIVE); BENZODIAZEPINES SCREEN,URINE NEGATIVE (NEGATIVE); CANNABINOID SCREEN,URINE NEGATIVE (NEGATIVE); COCAINE SCREEN,URINE NEGATIVE (NEGATIVE); METHADONE SCREEN, URINE NEGATIVE (NEGATIVE); OPIATE SCREEN,URINE NEGATIVE (NEGATIVE)
[2021-01-26 07:19] LABS: PHENCYCLIDINE SCREEN,URINE NEGATIVE (NEGATIVE)
[2021-01-26] MEDS: ACETAMINOPHEN 500 MG TABLET PO PRN ×2 (09:01→16:11)
[2021-01-26 11:04] LABS: APPEARANCE,URINE CLEAR (CLEAR); BILIRUBIN,URINE NEGATIVE (NEGATIVE); GLUCOSE, URINE (UA) >=1000 mg/dL (NEGATIVE); KETONES,URINE NEGATIVE (NEGATIVE); LEUKOCYTE ESTERASE ,URINE NEGATIVE (NEGATIVE); NITRATE,URINE NEGATIVE (NEGATIVE); OCCULT BLOOD,URINE NEGATIVE (NEGATIVE); PH,URINE 5.5 (5.0-8.0); PROTEIN,URINE POS 1+ (NEGATIVE)
[2021-01-26 11:11] LABS: BACTERIA,URINE None Seen /HPF (None Seen); RBC,URINE None Seen /HPF (0-2); WBC,URINE None Seen /HPF (0-5)
[2021-01-26] MEDS ORDERED: METOPROLOL SUCCINATE 25 MG ER TABLET PO ONE (17:45)
[2021-01-27] MEDS: ACETAMINOPHEN 500 MG TABLET PO PRN (05:08)
[2021-01-27 10:32] VITALS: BP 149/96
[2021-01-27] MEDS ORDERED: AmLODIPine BESYLATE 2.5 MG TABLET PO SCH (11:45)
[2021-01-27] MEDS ORDERED: METOPROLOL SUCCINATE 25 MG ER TABLET PO SCH (11:45)
[2021-01-27 16:00] VITALS: BP 143/90
[2021-01-27] MEDS ORDERED: FUROSEMIDE 20 MG TABLET PO SCH (17:00)
[2021-01-27] MEDS ORDERED: RIVAROXABAN 20 MG TABLET PO SCH (17:30)
== END 2021-01-27 19:30 | disposition home or self-care (01) | DRG 753 ==
LOC: EDUNIT# 02:56 → EMS 02:57 → 3EI 01-27 09:56
PROVIDERS: ADMIT Psychiatry & Neurology Child & Adolescent Psychiatry; ATTEND Psychiatry & Neurology Child & Adolescent Psychiatry
DX: F31.9 Bipolar disorder, unspecified (principal); I11.0 Hypertensive heart disease with heart failure; E11.65 Type 2 diabetes mellitus with hyperglycemia; I50.9 Heart failure, unspecified; R45.851 Suicidal ideations; F20.9 Schizophrenia, unspecified; F43.10 Post-traumatic stress disorder, unspecified; Z20.822 Contact with and (suspected) exposure to COVID-19; Z86.711 Personal history of pulmonary embolism; Z86.718 Personal history of other venous thrombosis and embolism; Z91.14 Patient's other noncompliance with medication regimen; E66.01 Morbid (severe) obesity due to excess calories; Z68.44 Body mass index [BMI] 60.0-69.9, adult; Z71.3 Dietary counseling and surveillance
CPT/HCPCS: 80053; 81001; 85025; 93005; 99285; G0480